=== PATIENT | male | born 1945 | race Caucasian/White ===

== ENCOUNTER 2018-08-11 09:42 | Inpatient (IN) | payer MEDICARE, SELFPAY ==
[2018-07-28 14:12] VITALS: BMI 23.1
[2018-08-11] VITALS (21 sets, daily range): BP systolic 87–177; BP diastolic 46–91; PULSE 60–93; RESP 10–20; TEMP 36.2–36.7; O2SAT 91–99; BMI 149.0
--- NOTE | 2018-08-11 | DI.RAD.S_ITS ---
PROCEDURE: XR LUMBAR SPINE 2-3V INDICATIONS: L4-5 TLIF FINDINGS: 2 limited intraoperative fluoroscopically stored images of the lower lumbar spine were obtained for intraoperative hardware localization purposes. These images are not meant for diagnostic purposes. Intraoperative findings related to a L4-5 discectomy infusion procedure are present. IMPRESSION: Intraoperative images obtained during the patient's lower lumbar discectomy and fusion procedure. Dictated by: Neville Mendoza M.D. on 08/11/2018 at 13:32 Approved by: Neville Mendoza M.D. on 08/11/2018 at 13:33
[2018-08-11] MEDS: LACTATED RINGERS 1,000 ML 42 ML IV ×2 (10:15→13:33)
--- NOTE | 2018-08-11 11:15 | PM.PREOP ---
Pre-operative Note Interval Note Pre-op Check: Yes History & Physical Reviewed by Physician, Yes Exam Performed and Yes History & Physical exam performed today by Physician Changes: No
[2018-08-11] MEDS: CEFAZOLIN 2 GM/100 ML FROZ.PIGGY IV (11:26)
--- NOTE | 2018-08-11 12:02 | SUR.OPER ---
Prone on spine table, head in foam head support, padded chest and pelvic supports, gel pad at knees, lower legs supported by pillows; nipples, genitalia and toes free of pressure, arms secured on foam padded arm boards at <90 degrees abduction. Tape over blanket at thigh secured to table.
[2018-08-11] MEDS: BUPIVACAINE 0.25% W/ EPI VIAL 30 ML INJ (12:15)
[2018-08-11] MEDS: BUPIVACAINE LIPOSOME 266 MG/20 ML VIAL INJ (12:16)
--- NOTE | 2018-08-11 14:00 | P.OP_ITS ---
Operative Date/Time/Diagnoses Date of procedure: 08/11/18 Time of procedure: 11:53 Pre-op diagnosis: 1. L4-5 hx of laminectomy with recurrent disc herniation and spinal stenosis 2. L3-4 spinal stenosis 3. L3-4, L4-5 spondylosis with radiculopathy Post-op diagnosis: same Procedure & Clinicians Procedure: 1. L4-5 Postero-lateral and posterior interbody fusion 2. L4-5 interbody cage placement. 3. L4-5 decompressive laminectomy with bilateral facetecomies 4. L4-5 Posterior non-segmental instrumentation 5. L3-4 right hemilamiectomy 6. [place] of bone marrow from iliac crest 7. Utilization of microsurgical technique and operating microscope Same procedure as scheduled: Yes Indications: Patient has been having chronic back pain and worsening lumbar radiculopathy. Patient failed multiple conservative management with worsening pain weakness and numbness in her lower extremity. Patient has been having difficulty performing activity of daily living. After discussing risks benefits of treatment options, patient elected proceed with surgery. Surgeon: Vinh Lauren Dress Finisher: Maria E Storey Click Yes if Unassisted: No Anesthesia Type: General Operative Notes Closure Type: primary Specimen(s): none sent Implants & Drains: Globus revolve screws, Rise Cages Estimated Blood Loss (mL): 50 Blood products transfused: none Procedure in detail: Patient was seen in the preoperative area. Risks and benefits of the surgery was discussed with the patient. Informed consent was obtained from the patient and placed in the chart. Surgical site was marked. Patient was taken to the operative room. General anesthesia was administered. Prophylactic antibiotic was given to the patient less than 30 min before the incision was made. Patient was placed into a prone position on the Sb table. Patient's back was then prepped and draped in the sterile fashion. Time- out was performed at this time. Using AP and lateral C-arm imaging the interval between L3-4 L4-5 was identified and marked on patient's back. A 2 inch incision 2 in from midline was made on the right side first. The fascia was incised in line with skin incision. Globus MARS retractors was placed inside the incision and docked onto the L4 lamina. Using microsurgical technique and operating microscope, a L4 laminectomy and L4-5 facetectomy was performed using a Kerrison rongeur. Patient had significant amount of epidural scarring. Patient also had significant amount of disc herniation in the epidural space. The scar tissue and the herniated disc were carefully removed using a Kerrison rongeur and pituitary. The disc space at L4-5 was identified. And a total diskectomy was performed at L4-5 level. The endplates were decorticated using a rasp and shaver. The total diskectomy and decortication was performed at L4-5 level in order to to accomplish a L4-5 fusion. The local bone from the laminectomy and facetectomy was saved for local bone grafting. After the total diskectomy and decortication was completed, Globus viacell bone graft material was combined with local bone that was harvested earlier. At this time, a separate skin is incision was made over the iliac crest. A Jamshidi needle was inserted into the iliac crest through a separate skin incision. 5 cc of bone marrow aspiration was obtained through the separate skin incision using a Jamshidi needle from the iliac crest. The bone marrow aspiration was combined with local bone and the via cell bone grafting material. The bone grafting material was placed into the L4-5 interbody space along with a expandable cage. The cage was expanded to its maximum height using the torque limiting screwdriver. At this time the MARS retractor was redirected over the L3 lamina. Using microsurgical technique and operating microscope, a L3-4 heminectomy was performed using the Kerrison rongeur. The ligamentum flavum was also resected at the side of the hemilaminectomy for further decompression of the epidural space. At this time a mirror image incision was made on the left side. The fascia was incised in line with the skin incision. Globus MARS retractor was inserted and docked onto the L4-5 posterolateral gutter. Using the power drill, posterior- lateral decortication was performed at L4-5 level until bleeding cortical bone was identified. The remaining bone grafting material was placed into the L4-5 posterior lateral gutter he order to accomplish posterolateral fusion at the L4- 5 level. Using the double C-arm technique, pedicle screws were placed into the L4 and L5 pedicles bilaterally. This was done by placing the Jamshidi needle into the pedicles, then placing the guidewires over the Jamshidi needle, and finally placing the cannulated screws over the guidewires bilaterally. After the pedicle screws were placed, 2 titanium rods was locked into the heads of the pedicle screws using locking caps and torque limiting screwdriver. After all the hardware was placed, and confirmed with AP and lateral C-arm imaging, the wound was then irrigated with sterile normal saline and packed with Ray-Bandar gauze for 3 min to accomplish hemostasis. After the gauze was removed the deep fascia was closed with #1 Vicryl suture. The subcutaneous layer was closed with 2-0 Vicryl. The skin was closed with skin kristie. Patient tolerated the procedure well. There were no complications. Complications: none Condition: stable Disposition: Acute Care Plan for aftercare: Admit to inpatient hospital
--- NOTE | 2018-08-11 14:14 | SUR.PHASEI ---
report recieved care assumed.
--- NOTE | 2018-08-11 14:26 | SUR.PHASEI ---
moving all extremeties equally, weak to flexion and extension. bilateral crab picker equal, weak.
[2018-08-11] MEDS: HYDROMORPHONE 2 MG INJ 0.5 MG IV (14:49)
--- NOTE | 2018-08-11 15:18 | SUR.PHASEI ---
Care to 1510 and then reassumed care at 1540.
[2018-08-11] MEDS: SODIUM CHLORIDE 0.9% 1,000 ML 100 ML IV (17:59)
[2018-08-11] MEDS: CEFAZOLIN 1 GM/50 ML FROZ.PIGGY IV (19:13)
[2018-08-11] MEDS: DOCUSATE 100 MG CAPSULE PO (19:14)
[2018-08-11] MEDS: SENNOSIDES 8.6 MG TABLET 17.2 MG PO (19:14)
[2018-08-11] MEDS: ACETAMINOPHEN 325 MG TABLET 650 MG PO (22:31)
[2018-08-11] MEDS: MAG HYDROX/ALUM/SIMETH 30 ML UDC PO (22:31)
[2018-08-12] VITALS: BP 129/70; PULSE 76; RESP 17; TEMP 36.5; O2SAT 96
[2018-08-12] MEDS: CEFAZOLIN 1 GM/50 ML FROZ.PIGGY IV (03:06)
[2018-08-12] MEDS: SODIUM CHLORIDE 0.9% 1,000 ML 100 ML IV (03:09)
[2018-08-12 03:11] VITALS: BP 132/73; PULSE 75; RESP 18; TEMP 36.6; O2SAT 95
--- NOTE | 2018-08-12 06:55 | PC.NURSE ---
08/12 0655 pt with minimal pain, requesting tylenol for pain control and states relief. Denies any deterioration of sensation to lower extremities, states sensation improved post surgery. VSS on RA, up with FWW and standby assist this AM. Verbalizes wishes and readiness to go home today.
--- NOTE | 2018-08-12 07:16 | PM.PNPO.1 ---
Subjective Date Patient Seen: 08/12/18 Interval history: Patient seen bedside s/p L3-4 right hemilaminectomy, L4-5 TLIF with posterior instrumentation with Dr. Lauren at on 08/11/2018. Patient is POD #1. Denies SOB, CP, N/V. Exam Vital Signs (past 8 hours): - 08/12/18 00:00 08/12/18 03:11 Temperature 97.7 F 97.9 F Pulse Rate 76 75 Respiratory Rate 17 18 Blood Pressure 129/70 132/73 Pulse Oximetry 96 95 Oxygen Delivery Method Room Air Oxygen Flow Rate 2.5 Assessment & Plan Post-op Postoperative Procedures Operation Date: 08/11/18 11:15 Actual Procedures Side Surgeon p L3-4 Right Hemilaminectomy, L4-5 TLIF w/Posterior Instru. Vinh Lauren MD 1. Patient is POD #1 above procedure. PT today, pain control. OOB as tolerated. Discharge pending PT clearance and pain control. Quality VTE Deep Vein Thrombosis/Pulmonary Embolism Present on Admission: No
--- NOTE | 2018-08-12 07:43 | PM.DS.1 ---
History of Present Illness Date Patient Seen: 08/12/18 Time Patient Seen: 07:31 Chief complaint: [id number] L3-4 L4-5 Narrative: Patient seen bedside s/p L3-4 right hemilaminectomy, L4-5 TLIF with posterior instrumentation with Dr. Lauren at on 08/11/2018. Patient is POD #1. Denies SOB, CP, N/V. Pain is well controlled with APAP. Would like to go home today. Discharge Providers Date of admission: 08/11/18 09:42 Primary care physician: Natalio Corrigan MD Consults: 08/11/18 16:30 Consult to Occupational Therapy Evaluate & Treat Comment: Physician Instructions: Evaluate and treat Consult to Physical Therapy Evaluate & Treat Comment: Physician Instructions: Evaluate and Treat Discharge provider: Indy Wells PA-C Discharge Date: 08/12/18 Summary Discharge Diagnosis: 1. Spondylolisthesis at level L3-L4 2. Spinal stenosis of lumbar spine at multiple levels 3. Right foot drop Hospital Course: Patient was admitted to the hospital s/p L3-4 right hemilaminectomy, L4-5 TLIF with posterior instrumentation with Dr. Lauren at on 08/11/2018. Patient tolerated the procedure well with no major complications. He was transferred to the acute care floor where he was seen by PT and recommended for discharge home. He was stable and ready for discharge on 08/12/18. Per discussion with patient, I only prescribed him 15 tablets of oxycodone. He stated that he did not want any more than that. Follow up in office in 2 weeks' time. Status at Discharge Cognitive/behavioral status at discharge: Alert & oriented x4 Functional status at discharge: uses cane/walker Overall status at discharge: patient is progressing back to baseline Time Spent with Patient Less than 30 minutes Exam Vital Signs (past 8 hours): - 08/12/18 00:00 08/12/18 03:11 Temperature 97.7 F 97.9 F Pulse Rate 76 75 Respiratory Rate 17 18 Blood Pressure 129/70 132/73 Pulse Oximetry 96 95 Oxygen Delivery Method Room Air Oxygen Flow Rate 2.5 Narrative Exam Narrative: WDWN NAD A&OX3. Dressing on lumbar spine CDI. ROM of BLE intact. Calves are soft and compressible. Discharge Plan Discharge Plan Patient Disposition: Home Discharge comment: Please change dressing to waterproof op site prior to discharge. Discharge Med Rec/Prescriptions Prescriptions: New acetaminophen 325 mg Tablet 650 mg PO Q6HR PRN (Reason: Pain, Mild (1-3)) Qty: 0 RF: 0 docusate sodium 100 mg Capsule 100 mg PO BID Qty: 0 RF: 0 hydroxyzine pamoate 25 mg Capsule 25 mg PO Q4HR PRN (Reason: Nausea And Vomiting) Qty: 50 RF: 1 oxycodone 10 mg Tablet 5 mg PO Q4H PRN (Reason: Pain, Severe (7-10)) Qty: 15 RF: 0 Continue enalapril maleate 20 mg Tablet 40 mg PO QAM RF: 0 tamsulosin 0.4 mg Capsule,Extended Release 24hr 0.4 mg PO QAM RF: 0 fenofibrate nanocrystallized 145 mg Tablet 145 mg PO QAM RF: 0 tolterodine 2 mg Tablet 2 mg PO QAM RF: 0 Discontinued aspirin [Ecotrin] 325 mg Tablet,Delayed Release (Dr/Ec) 1 tab PO QAM RF: 0 Follow up/Referrals: Vinh Lauren MD [Physician] - 08/22/18 1:00 pm (Follow up in the [place] office with Doretha Ruth PA-C ) Provider Discharge Instructions Diet: Diet as Tolerated Activity: WBAT, limit twisting/bending. No lifting over 5 lbs. Cold/Heat Therapy: Apply ice for 20 minutes at a time to operative site as needed at least hourly while awake. Skin/Wound/Dressing Care Report to your healthcare provider any signs of infection, such as:: chills, fever, night sweats, increased pain and unusual drainage Dressing: Keep dressing CDI until post-op appointment. May shower with dressing in place. Visit Report/Discharge Packet Instructions: DI for Transforaminal Lumbar Interbody Fusion Discharge Data Primary Care Provider: Natalio Corrigan Attending Provider: Vinh Lauren Admit Date/Time: 08/11/18 09:42 Quality VTE Deep Vein Thrombosis/Pulmonary Embolism Present on Admission: No
[2018-08-12 08:00] VITALS: BP 149/77; PULSE 73; RESP 18; TEMP 36.6; O2SAT 98
[2018-08-12 08:19] LABS: Hematocrit 39.3 % (41-53); Hemoglobin 13.3 g/dL (13.5-17.5)
--- NOTE | 2018-08-12 08:32 | PT.IIE ---
Addendum entered and electronically signed by Anais Powell, PT 08/12/18 10:46: I certify I directly supervised and guided this session. Nicole Powell DPT Original Note: Current Diagnoses Foot drop, right foot (08/11/18) Spondylolisthesis, lumbar region (08/11/18) Spinal stenosis, lumbar region without neurogenic claudication (08/11/18) Other specified postprocedural states (08/11/18) Surgery Performed Operation Date: 08/11/18 11:15 Actual Procedures p L3-4 Right Hemilaminectomy, L4-5 TLIF w/Posterior Instru. - Vinh Lauren MD Surgical History (This Medical Record has been edited. Action required.) History of bladder surgery (Acute) History of femoropopliteal bypass (Acute) History of left-sided carotid endarterectomy (Acute) History of lumbar surgery (Acute) Hx of appendectomy (Acute) Hx of tonsillectomy (Acute) Medical History (This Medical Record has been edited. Action required.) COPD (chronic obstructive pulmonary disease) (Acute) Cancer (Acute) Carotid artery stenosis (Acute) Chronic kidney disease (Acute) Easy bruisability (Acute) Enlarged prostate (Acute) Fragile skin (Acute) Gout (Acute) HTN (hypertension) (Acute) Hypercholesterolemia (Acute) Hypothyroid (Acute) Lumbar spinal stenosis (Acute) Numbness and tingling (Acute) Peripheral vascular disease (Acute) Psoriasis (Acute) Right foot drop (Acute) Vitamin D deficiency (Acute) Physical Therapy Inpatient Evaluation/Re-Eval M1 PT/OT-IP Prior Functional Status Start: 08/12/18 09:20 Freq: NEEDED Status: Active Protocol: Document 08/12/18 08:32 (Rec: 08/12/18 09:42 [id number]) Medical Review Prior Functional Status Medical History Reviewed Yes Communication No deficits noted. Mobility and Gait Prior to admit, pt was independent for all mobilities with the exception of occasional spc use for long distance ambulation; for example, a long shopping trip. Social History Household Members spouse Living Arrangements House Number of Floors (Floors) Two Floors Number of Stairs To Enter/Railing? 1 step to porch, then 1 step to enter. Home Environment Standard Height Toilet Tub/Shower Built-In Shower Seat Home Equipment Straight Cane Grab Bars In Shower Employment Status Retired Additional Social History Comment He will be staying with his daughter until recovered and is all set up to live entirely on the 1st floor. His will be avaliable for 24 assist upon d/c. Pt also owns a soft lumbar support brace. M2 PT-IP Current Condition Start: 08/12/18 09:20 Freq: NEEDED Status: Active Protocol: Document 08/12/18 08:32 (Rec: 08/12/18 09:42 [id number]) Physical Therapy Current Condition Current Condition Evaluation Date 08/12/18 Treatment Diagnosis Lumbar lami/fusion; difficulty walking Onset Date 08/11/2018 Precautions Lumbar Precautions Log Roll No Twisting Limit Bending Lifting Restriction of 10 lbs Gait Belt above Incisional Area Other Precautions Lifting restriction per surgical report 5#. M3 PT-IP Subjective Start: 08/12/18 09:20 Freq: NEEDED Status: Active Protocol: Document 08/12/18 08:32 (Rec: 08/12/18 09:42 [id number]) Subjective Physical Therapy Visit Type Type Initial Evaluation Visit Start Time 08:32 Visit Stop Time 09:04 Total Visit Minutes 32 Number of STRAP BUCKLER MACHINE Visits 0 Physical Therapy Visit Comments Patient Comments Pt agreeable to mobilize. Patient Goals Planning to stay in daughter's home at d/c with 24/7 assist from . Therapy Pain Assessment Pain When Pain Assessed During Mobility Pain Present Pain Present Pain Reported Location Back Scale Used Reports twinges of pain when pressure directly on spine. Otherwise 0/10 Pain Management Techniques Modification of Treatment Re-positioning Timing of Activity with Medications M4 PT-IP Mobility and Gait Start: 08/12/18 09:20 Freq: NEEDED Status: Active Protocol: Document 08/12/18 08:32 (Rec: 08/12/18 09:42 [id number]) PT-Bed Mobility Assessment Rolling Type of Rolling Roll to Right Level of Assist Standby Assistance Supine to Sit Supine to Sit Standby Assistance Scooting Scooting to Edge of Bed Standby Assistance PT-Transfer Assessment Sit to and From Stand Sit to and from Stand Standby Assistance Equipment Transfer Assistive Device None Gait Belt Straight Cane Front Wheeled Walker Orthotic/Prosthetic Devices or Brace: No Transfers Transfer Destination Chair Comments Mobility Comments Pt familiar with log roll and performs SBA with no cuing. Sit <> stand performed with fww and SBA; pt uses UE on bed surface and stands without support of walker for balance. Sit <> stand with spc is also SBA, UE use on chair. Gait Assessment Gait Gait Assistance Required: Standby Assistance Distance (Feet) 200 Able to Maintain Weight Bearing Status Yes During Gait Assistive Devices Assistive Device None Gait Belt Straight Cane Front Wheeled Walker Orthotic/Prosthetic Devices or Brace: No Gait Deviations General Gait Pattern Antalgic Flexed Trunk Factors Limiting Gait Function Factors Limiting Gait Function Decreased Activity Tolerance Decreased Strength Limited Range of Motion Pain Poor Balance Poor Safety Awareness Comments Gait Comments Pt ambulates in room with fww SBA 10 ft; Attempt 10 ft. with no AD is SBAand pt demonstrates antalgic gait and increase in forward flexed posture. Pt ambulates additional 180 ft in hallway to/from stairs with spc SBA with improved upright posture and decreased antalgic gait. He is able to partially correct posture when cued. R Midfoot strike is noted with all ambulation. Stair Climbing Assessment Evaluation Level of Assist On Stairs Standby Assistance Devices Stair Climbing Assistive Devices Straight Cane Technique/Endurance Stair Climbing Direction Ascend and Descend Stair Climbing Technique Step Over Step Number of Steps Climbed 3 Query Text: Stair Climbing Set # Repetitions (reps) 3 Comments Stair Climbing Comments Pt is SBA with spc cane on steps. PT-Balance Assessment Sitting Balance and Reactions Static Sitting Balance Ability Good Dynamic Sitting Balance Ability Good Standing Balance and Reactions Static Standing Balance Ability Good Dynamic Standing Balance Ability Fair Device Used spc, fww and none Comments Other Balance Tests/Deviations/Treatment pt demonstrates slight : unsteadiness when using no AD. Improved significantly with spc. M5 PT-IP Objective Assessments Start: 08/12/18 09:20 Freq: NEEDED Status: Active Protocol: Document 08/12/18 08:32 (Rec: 08/12/18 09:42 [id number]) Orientation Orientation/Cognition Level of Alertness Alert Orientation Name Age Birthday Month Date Year Day of Week Place Situation Language Function Ability No Deficits Noted Safety Awareness Decreased Safety Awareness Comments Pt demonstrates impulsivity with activities. He is asked to slow down repeatedly this session. Strength Lower Extremity Strength Assessment Within Functional Limits Comments Strength Comments Pt notes ability to dorsiflex R foot is improved greatly since surgery. Sensation Assessment Sensation Light Touch Impaired Comments Sensation Comments Decreased light touch sensation RLE. Intact pressure BLE. M6 PT-IP Treatment Start: 08/12/18 09:20 Freq: NEEDED Status: Active Protocol: Document 08/12/18 08:32 (Rec: 08/12/18 09:42 [id number]) Physical Therapy Treatment Education Education Provided Precautions Weight Bearing Status Post-Op Packet Safety Other Treatments Other Treatment Performed Discussed need for 24/7 SBA for safety and use of spc. Pt agreed. M7 PT-IP Assessment and Plan Start: 08/12/18 09:20 Freq: NEEDED Status: Active Protocol: Document 08/12/18 08:32 (Rec: 08/12/18 09:42 [id number]) PT Summary Assessment and Plan Potential Rehabilitation Potential Good Status of Condition at Evaluation Stable Summary Impairments Pain ROM Strength Balance Sensation Bed Mobility Transfers Gait Activity Tolerance Progress Towards Goals Progressing Toward Goals Assessment Summary Pt s/p lumbar lami/fusion with difficulty walking. He was able to ambulate a total of 200 ft SBA and demonstrates best quality of gait and posture when using spc. He also completed up/down 9 steps with spc and SBA. Recommend d/c to home (his daughter's home) with 24/7 assist. Goals Bed Mobility Goal Independent Transfer Goal Independent Cane Gait Goal Independent Cane Gait Distance 300 Days to Meet Goals 2 Treatment Plan Physical Therapy Treatment Plan Bed Mobility Training Transfer Training Gait Training Therapeutic Exercise Balance Retraining Post Op Education Discharge Planning Hot or Cold Pack Neuromuscular Re-ed Coordination Retraining Manual Therapy Other Recommendations and Next Treatment Progress ambulation and stair Focus climbing. Recommendations To Nursing Amount of Assist Needed Standby Assistance Discharge Recommendations PT Discharge Recommendations Home with 24/7 Assist
[2018-08-12] MEDS: DOCUSATE 100 MG CAPSULE PO (09:32)
[2018-08-12] MEDS: ACETAMINOPHEN 325 MG TABLET 650 MG PO (10:41)
--- NOTE | 2018-08-12 11:00 | OT.IP.EVAL ---
Current Diagnoses Foot drop, right foot (08/11/18) Spondylolisthesis, lumbar region (08/11/18) Spinal stenosis, lumbar region without neurogenic claudication (08/11/18) Other specified postprocedural states (08/11/18) Surgery Performed Operation Date: 08/11/18 11:15 Actual Procedures p L3-4 Right Hemilaminectomy, L4-5 TLIF w/Posterior Instru. - Vinh Lauren MD Past Medical History (This Medical Record has been edited. Action required.) COPD (chronic obstructive pulmonary disease) (Acute) Cancer (Acute) Carotid artery stenosis (Acute) Chronic kidney disease (Acute) Easy bruisability (Acute) Enlarged prostate (Acute) Fragile skin (Acute) Gout (Acute) HTN (hypertension) (Acute) Hypercholesterolemia (Acute) Hypothyroid (Acute) Lumbar spinal stenosis (Acute) Numbness and tingling (Acute) Peripheral vascular disease (Acute) Psoriasis (Acute) Right foot drop (Acute) Vitamin D deficiency (Acute) Surgical History (This Medical Record has been edited. Action required.) History of bladder surgery (Acute) History of femoropopliteal bypass (Acute) History of left-sided carotid endarterectomy (Acute) History of lumbar surgery (Acute) Hx of appendectomy (Acute) Hx of tonsillectomy (Acute) Occupational Therapy Inpatient Evaluation/Re-Eval M1 PT/OT-IP Prior Functional Status Start: 08/12/18 09:20 Freq: NEEDED Status: Active Protocol: Document 08/12/18 11:00 LANDON (Rec: 08/12/18 11:43 PJ [id number]) Medical Review Prior Functional Status Medical History Reviewed Yes Diet/Fluid Consistency Regular Communication No deficits noted. Mobility and Gait Prior to admit, pt was independent for all mobilities with the exception of occasional SPC use for long distance ambulation; for example, a long shopping trip. Activities of Daily Living and IADL's Pt independent with all self care, IADLS, driving but limited by back pain. Prior Functional Level (Other details) can provide 24 hr assist at d/c PRN. Social History Household Members spouse Living Arrangements House Number of Floors (Floors) Two Floors Number of Stairs To Enter/Railing? 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 Pt/ currently living with daughter in [place] while building home in [place]. M2 OT-IP Current Condition Start: 08/12/18 11:31 Freq: Status: Active Protocol: Document 08/12/18 11:00 PJM (Rec: 08/12/18 11:43 PJM [id number]) Occupational Therapy Current Condition Current Condition Evaluation Date 08/12/18 Treatment Diagnosis decreased self care s/p L3-4 lami and L4-5 PLIF Diagnosis Onset Date 08/11/18 Post Operative Precautions Lumbar Precautions Log Roll No Twisting Limit Bending Lifting Restriction of 10 lbs Gait Belt above Incisional Area Other Precautions Lifting restriction per surgical report 5#. M3 OT- IP Subjective and Pain Start: 08/12/18 11:31 Freq: Status: Active Protocol: Document 08/12/18 11:00 PJM (Rec: 08/12/18 11:43 PJM [id number]) OT- Subjective Occupational Therapy Visit Type Type Initial Evaluation Visit Start Time 10:38 Visit Stop Time 11:00 Total Visit Minutes 22 Occupational Therapy Visit Comments Patient/Caregiver Goals to be able to build deck on new house next summer; resume golfing OT Pain Assessment Pain When Pain Assessed At Rest Pain Present Pain Present Pain Reported Location Back Intensity 2 Scale Used Numeric (1 - 10) Description Aching Acute Management Techniques Distraction Re-positioning Timing of Activity with Medications M4 OT- IP ADL's Start: 08/12/18 11:31 Freq: Status: Active Protocol: Document 08/12/18 11:00 PJM (Rec: 08/12/18 11:43 PJM [id number]) OT [id number] General Evaluation Diet Level for Self-Feeding general Self-Feeding Ability Independent OT ADL-Grooming General Evaluation Grooming Ability Independent Comments OT Grooming Comments after education provided re: body mechanics at sink OT ADL-Oral Care General Eval Oral Care Ability Independent Areas of Assistance Brushing Teeth Devices Oral Care Devices Toothbrush Comments Oral Care Comments after education provided re: body mechanics at sink OT ADL-Dressing General Eval Upper Body Dressing Ability Independent Comments OT Dressing Comments provided education re: precautions and body mechanics OT ADL-Toileting General Evaluation Toileting Ability Independent Comments OT Toileting Comments provided education re: precautions and body mechanics for rigoberto care OT ADL-Bathing Bathing Type Bathing Type Shower Devices Bathing Equipment Long Handled Sponge or [place] Grab Bars Comments OT Bathing Comments provided education re: precautions and body mechanics M5 OT- IP IADL's Start: 08/12/18 11:31 Freq: Status: Active Protocol: Document 08/12/18 11:00 PJM (Rec: 08/12/18 11:43 PJ [id number]) OT-Instrumental Activities of Daily Living Deficits IADL Deficits Identified Deficits Home Safety Awareness Awareness of Need for Assistance at Home Good Awareness Ability to Problem Solve Emergency Able to Problem Solve Situations Medication Management Medication Management No Deficits Identified Money Management Money Management No Deficits Identified Meal Preparation Meal Preparation Caregiver Provides Assist Meal Preparation Comments can assist PRN Interactive Media Director Interactive Media Director Caregiver Provides Assist Interactive Media Director Comments can assist PRN Driving Driving Caregiver Provides Assist Driving Comments can assist PRN until pt able M6 OT- IP Functional Cognition Start: 08/12/18 11:31 Freq: Status: Active Protocol: Document 08/12/18 11:00 PJM (Rec: 08/12/18 11:43 PJ [id number]) Cognitive Factors Limiting Selfcare Function Cognitive Ability Level of Alertness Alert Patient Orientation Name Age Birthday Month Date Year Day of Week Place Situation Attention Span Ability Capable of Focused Attention Capable of Sustained Attention Ability to Follow Commands Able to Follow One Step Commands Memory Description No Deficits Noted Safety Awareness No Deficits Noted Executive Function Ability No Deficits Noted Cognitive Comments Cognitive Assessment Comments Cognition appears WNL; pt recalls and applies 3/3 precautions OT- Vision and Hearing OT- Hearing Assessment OT- Hearing Assessment WFL OT- Vision Assessment Visual Acuity WFL Vision Assessment Comments pt denies any recent vision changes M7 OT- IP Mobility and Balance Start: 08/12/18 11:31 Freq: Status: Active Protocol: Document 08/12/18 11:00 PJM (Rec: 08/12/18 11:43 PJ [id number]) OT-Transfer Assessment Technique Transfer Destination Car Comments Mobility Comments Pt up in chair this session; see P.T. notes. Provided education re: car transfer technique OT- Gait Assessment Comments Gait Ability Comments see P.T. notes OT- Balance Assessment Sitting Balance and Reactions Static Sitting Balance Ability Good Dynamic Sitting Balance Ability Good Standing Balance and Reactions Static Standing Balance Ability Good Dynamic Standing Balance Ability Good M8 OT- IP Objective Assessments Start: 08/12/18 11:31 Freq: Status: Active Protocol: Document 08/12/18 11:00 PJM (Rec: 08/12/18 11:43 PJM [id number]) OT Gross Range of Motion Upper Extremity Range of Motion Assessment Within Functional Limits OT Strength Upper Extremity Strength Assessment Within Functional Limits Hand Financial Investigator Strength Hand Dominance Right OT- Coordination Assessment Upper Extremity Finger to Nose Test Right UE Impaired Finger Tapping Test Right UE Impaired Comments Coordination Comments long standing R hand intention tremor noted OT-Muscle Tone Assessment Muscle Tone WNL Yes OT Sensation Assessment Comments Summary Comments BUE WNL Edema Edema Absent M9 OT- IP Assessment and Plan Start: 08/12/18 11:31 Freq: Status: Active Protocol: Document 08/12/18 11:00 PJM (Rec: 08/12/18 11:43 PJM [id number]) OT Summary Assessment and Plan Potential Rehabilitation Potential Good Analytic Complexity at Evaluation Low Summary OT Impairments Pain Progress Towards Goals Safe For Discharge Assessment Summary Low complexity OT assessment and all education provided re: lumbar spine precautions and body mechanics during self care/IADL tasks. Pt verbalizes and demonstrates understanding. Pt plans to d/c home today with 24 hr assist from . No further OT services needed Frequency of Treatment Frequency Of Treatment Discharge Treatment Plan Other Treatment Recommendations and Next No further OT services needed. Treatment Focus Discharge Recommendations OT Discharge Recommendations Home with Assistance Home Equipment Needs recommend long bath sponge
--- NOTE | 2018-08-12 11:30 | PC.NURSE ---
discharge pt states he took all belongings home with him including his cane and back brace. d/c instructions provided to pt. notified of f/u apt with MD. Also aware to contact MD with any additional questions or concerns. PIV removed prior to d.c. Pt left with to car.
== END 2018-08-12 11:30 | disposition home or self-care (01) | DRG 455 ==
PROVIDERS: Admitting Provider Orthopaedic Surgery Orthopaedic Surgery of the Spine; PCP Internal Medicine; Visit Provider Orthopaedic Surgery Orthopaedic Surgery of the Spine
PROC: 0SG00AJ Fusion of Lumbar Vertebral Joint with Interbody Fusion Device, Posterior Approach, Anterior Column, Open Approach (ICD-10-PCS; principal; 2018-08-11 11:15)
DX: M43.16 Spondylolisthesis, lumbar region (principal); M48.061 Spinal stenosis, lumbar region without neurogenic claudication; M21.371 Foot drop, right foot; I73.9 Peripheral vascular disease, unspecified; E03.9 Hypothyroidism, unspecified; F17.210 Nicotine dependence, cigarettes, uncomplicated; N18.9 Chronic kidney disease, unspecified; I12.9 Hypertensive chronic kidney disease with stage 1 through stage 4 chronic kidney disease, or unspecified chronic kidney disease
CPT/HCPCS: 36415; 72100; 76001; 85014; 85018; 97116; 97161; 97165; C1776; C9290; J0330; J0690; J1100; J1170; J2250; J2405; J2704; J3010

== ENCOUNTER 2018-12-18 12:21 | Day surgery (SDC) | payer MEDICARE, SELFPAY ==
[2018-08-11 17:20] VITALS: BMI 149.0
--- NOTE | 2018-12-18 | PATH_ITS ---
[facility] Accession Number: [id number] . 01 Material submitted: . PART A: CECAL POLYP PART B: RECTAL POLYP AT 15 . 02 Diagnosis: A. Cecum, Polyp, Biopsy: Tubular adenoma. . B. Rectum, Polyp at 15, Biopsy: Hyperplastic polyp. MRV/12/19/2018 . 02 Electronically signed: . Nasima Franco MD, Pathologist NPI- [id number] . 01 Gross description: . Received two formalin-filled containers, both labeled with the patient's name: . A. In a container labeled cecal polyp, are four less than 0.1 cm to 0.3 cm portions of tissue, entirely submitted in cassette A. B. In a container labeled rectal polyp at 15, are two 0.2-0.4 cm portions of tissue, entirely submitted in cassette B. ([id number]) /FRR . 02 Pathologist provided ICD-10: D12.0 . 02 CPT . 313468, [id number] Performed at: 01 [facility] [address] [facility], [place], [place] [id number] MD Cristian Rocha MD Phone: [phone] Performed at: 02 [facility] [address] [place], [place] [id number] MD Nasima Franco MD Phone: [phone]
[2018-12-18] MEDS: SODIUM CHLORIDE 0.9% 1,000 ML 200 ML IV (12:40)
[2018-12-18 12:42] VITALS: BP 168/99; PULSE 88; RESP 12; TEMP 36.6; O2SAT 95; BMI 23.6
--- NOTE | 2018-12-18 12:56 | PM.HP.1 ---
History of Present Illness Date Patient Seen: 12/18/18 Time Patient Seen: 12:56 Chief complaint: [id number] SCREENING COLONOSCOPY Narrative: 73-year-old male with personal history of colon polyps who presents now for colorectal screening. His last endoscopy was 3 years ago. He has had polyps removed at each endoscopy. On further history today he denies any recent symptoms. No nausea, vomiting, unintended weight loss, abdominal pain, change in bowel habits, diarrhea, constipation, melena, hematochezia, or bright red blood per rectum. Patient History Medical History Personal history of colonic polyps (Acute) COPD (chronic obstructive pulmonary disease) (Acute) Cancer (Acute) Carotid artery stenosis (Acute) Chronic kidney disease (Acute) Easy bruisability (Acute) Enlarged prostate (Acute) Fragile skin (Acute) Gout (Acute) HTN (hypertension) (Acute) Hypercholesterolemia (Acute) Hypothyroid (Acute) Lumbar spinal stenosis (Acute) Numbness and tingling (Acute) Peripheral vascular disease (Acute) Psoriasis (Acute) Right foot drop (Acute) Vitamin D deficiency (Acute) Surgical History History of colonoscopy (Acute) History of bladder surgery (Acute) History of femoropopliteal bypass (Acute) History of left-sided carotid endarterectomy (Acute) History of lumbar surgery (Acute) Hx of appendectomy (Acute) Hx of tonsillectomy (Acute) Social History household members: spouse Smoking Status: Current every day smoker alcohol intake: current Family & Social History Social History: household members spouse Tobacco & Substance use: Tobacco type cigarettes Smoking Status Current every day smoker alcohol intake current alcohol intake frequency a few times a week Substance Use Type does not use Meds Home Medications Medication Instructions Recorded Confirmed Type enalapril maleate 40 mg PO QAM 05/01/18 08/11/18 History fenofibrate nanocrystallized 145 mg PO QAM 05/01/18 08/11/18 History tamsulosin 0.4 mg PO QAM 05/01/18 08/11/18 History oxycodone 5 mg PO Q4-6H PRN #15 tab 08/12/18 Rx albuterol sulfate [ProAir HFA] 1 puff INHALATION Q4-6H PRN 12/18/18 12/18/18 History Allergies Allergy/AdvReac Type Severity Reaction Status Date / Time No Known Drug Allergies Allergy Verified 12/18/18 12:41 Review of Systems Review of Systems All systems reviewed & are unremarkable except as noted in HPI and below Exam Vital Signs (past 8 hours): - 12/18/18 12:42 Temperature 97.8 F Pulse Rate 88 Respiratory Rate 12 Blood Pressure 168/99 H Pulse Oximetry 95 Oxygen Delivery Method Room Air Narrative Exam Narrative: Well-nourished well-developed thin male in no acute distress. Alert oriented x3. is at the bedside for my entire visit Sclera nonicteric He has coarse rhonchi consistent with his smoking habit. No wheezes Regular rate and rhythm Abdomen soft, nondistended, nontender Extremities show no clubbing, cyanosis, or edema. Dorsal pedis pulses are palpable bilaterally. Right greater than left. Objective Labs Labs: No recent laboratory or radiographic studies for review Assessment & Plan Assessment & Plan narrative: 73-year-old male with personal history of colon polyps. He requires endoscopic surveillance for such. Colonoscopy is currently recommended. Technical details of the procedure were explained. Risks, benefits, alternatives were discussed. Risks including but not limited to sedation, aspiration, bleeding, pain, missed lesion, incomplete examination, need for further radiographic studies, colonic perforation, need for major abdominal surgery, and all attendant risks of major surgery were discussed in detail. All questions were answered to his satisfaction, and he voiced understanding. Consent was placed on the chart. We will proceed as above.
--- NOTE | 2018-12-18 13:00 | PM.PREOP ---
Pre-operative Note Interval Note History & Physical reviewed/Exam performed by Physician: Yes Changes to H&P: No H&P completed within 30 days and has changed as indicated here:: Patient seen and examined today. History and physical examination placed on the chart. Obviously, there have been no changes in the last 15 min. Proceed with colonoscopy today as planned. ASA Class (for procedural sedation): II
[2018-12-18] MEDS: MIDAZOLAM 5 MG/5 ML VIAL IV (13:17)
[2018-12-18] MEDS: fentaNYL 250 MCG/5 ML INJ IV (13:18)
--- NOTE | 2018-12-18 13:43 | P.OP.ENDO_ITS ---
Operative Date/Time/Diagnoses Date of procedure: 12/18/18 Time of procedure: 13:41 Pre-op diagnosis: Personal history colon polyps Post-op diagnosis: other (Diverticulosis and colon polyps) Procedure & Clinicians Study performed: 1. Sedation per surgeon 2. Colonoscopy with hot snare polypectomy and cold forceps polypectomy Same procedure as scheduled: Yes Indications: 73-year-old male with personal history of colon polyps. His last endoscopy was 3 years ago. He requires surveillance for colorectal neoplasia. Colonoscopy is currently recommended. Surgeon: Natalio Lora Procedure Notes SCOAP/Timeout: Yes Procedure in detail: After obtaining informed consent, the patient was brought to the GI suite and placed in the left lateral decubitus position on the examination table. After placement of appropriate monitors, the patient was given incremental doses of Versed and Fentanyl until an appropriate level of sedation was achieved. A time out was held per SCOAP protocol. A digital rectal examination was performed and did not reveal any masses or obstructing lesions. The colonoscope was gently passed into the patient's anus and the entire colon navigated to the level of the cecum with minimal difficulty . Once in the cecum, the scope was withdrawn being sure to go before and beyond all mucosal folds and prominences and get an excellent examination. The findings are noted above. At the level of the rectal vault, the scope was retroflexed and the internal anal canal was examined. The scope was straightened and air aspirated from the colon. The instrument was removed from the patient's body and the procedure was concluded. The patient was allowed to awaken from sedation without difficulty and taken to the post-anesthesia care unit in good condition. Scope withdrawal time: 20:54 min Sedation minutes: 32 Findings: diverticulosis and polyp Specimen(s): other (1. Cecal polyp 2. Rectal polyp at 15 cm) Complications: none Recommendations: Colonscopy in 3 years, High fiber diet and Will call with biopsy results Plan for aftercare: 1. Discharge home Follow up: as needed Disposition: PACU
[2018-12-18 13:44] VITALS: BP 133/71; PULSE 68; RESP 12; TEMP 36.4; O2SAT 97
[2018-12-18 13:49] VITALS: BP 137/78; PULSE 73; RESP 13; O2SAT 95
[2018-12-18 13:54] VITALS: BP 141/74; PULSE 78; RESP 17; O2SAT 97
[2018-12-18 13:59] VITALS: BP 151/88; PULSE 73; RESP 14; TEMP 36.3; O2SAT 99
[2018-12-18 14:04] VITALS: BP 164/85; PULSE 72; RESP 16; TEMP 36.3; O2SAT 96
== END 2018-12-18 14:18 | disposition home or self-care (01) ==
PROVIDERS: PCP Internal Medicine; Visit Provider Surgery
PROC: 0DJD8ZZ Inspection of Lower Intestinal Tract, Via Natural or Artificial Opening Endoscopic (ICD-10-PCS; CPT 45378; principal; 2018-12-18 13:30)
DX: Z86.010 Personal history of colon polyps (principal); K57.30 Diverticulosis of large intestine without perforation or abscess without bleeding; D12.0 Benign neoplasm of cecum; D12.8 Benign neoplasm of rectum; J44.9 Chronic obstructive pulmonary disease, unspecified; N18.9 Chronic kidney disease, unspecified; N40.0 Benign prostatic hyperplasia without lower urinary tract symptoms; I10 Essential (primary) hypertension; E78.00 Pure hypercholesterolemia, unspecified; E03.9 Hypothyroidism, unspecified; I73.9 Peripheral vascular disease, unspecified; E55.9 Vitamin D deficiency, unspecified; F17.210 Nicotine dependence, cigarettes, uncomplicated
CPT/HCPCS: 45380; 88305; J2250; J3010

== ENCOUNTER → 2021-12-10 10:40 | Outpatient (CLI) | payer MEDICARE, SELFPAY ==
[2018-08-11 17:20] VITALS: BMI 149.0
--- NOTE | 2021-12-10 | DI.MRI.S_ITS ---
PROCEDURE: MR LUMBAR SPINE WO CON INDICATIONS: Spinal stenosis, lumbar region TECHNIQUE: Noncontrast sagittal T1 spin echo and T2 fast echo, sagittal STIR, axial T1 and T2 fast spin echo through the lumbar spine. In cases with scoliosis, additional coronal T2 fast spin echo may be performed. COMPARISON: None. FINDINGS: Image quality: Excellent. Alignment and Curvature: Convex right thoracolumbar scoliosis noted. Bone Marrow: Marrow is of normal overall signal. No acute vertebral body compression fractures. L4 and L5 discectomy with interbody fusion and posterior maggi and screw instrumentation noted. L4 decompressive laminectomy present. Spinal Cord: Conus medullaris terminates at the L1 level. Visualized cord demonstrates normal signal and size. Paraspinous Soft Tissues: Bilateral renal cysts present. T12-L1: Disc space narrowing and circumferential disc bulge results in mild central stenosis no foraminal stenosis. L1-L2: Normal appearance. L2-L3: Disc space narrowing with circumferential disc bulge and hypertrophic facet joints results in mild central stenosis. No foraminal stenosis L3-L4: Space narrowing with circumferential disc bulge and ligamentum flavum laxity combines with hypertrophic facet joints results in moderate central stenosis. There is severe left and moderate right foraminal stenosis. L4-L5: Interbody fusion and L4 decompressive laminectomy noted. No central stenosis present. There is moderate bilateral foraminal stenosis. L5-S1: Disc space narrowing with circumferential disc bulge and hypertrophic facet joints present appear possible 5 mm right synovial cyst versus perineural cyst noted in the right lateral recess. No central stenosis. Moderate bilateral foraminal stenosis noted. IMPRESSION: 1. Multilevel degenerative disc disease and arthropathy results in varying degrees of central and foraminal stenosis including moderate central stenosis at L3-4. 2. Possible right L5-S1 synovial cyst versus perineural cyst in the right lateral recess. 3. L4-5 interbody fusion with posterolateral maggi and screw instrumentation and L4 decompressive laminectomy Approved by: Patrick Sage M.D. on 12/11/2021 at 12:50
== END ==
PROVIDERS: PCP Internal Medicine; Referring Provider Orthopaedic Surgery Orthopaedic Surgery of the Spine; Visit Provider Orthopaedic Surgery Orthopaedic Surgery of the Spine
DX: M48.061 Spinal stenosis, lumbar region without neurogenic claudication (principal); M48.07 Spinal stenosis, lumbosacral region; M47.816 Spondylosis without myelopathy or radiculopathy, lumbar region; M47.817 Spondylosis without myelopathy or radiculopathy, lumbosacral region; M51.36 Other intervertebral disc degeneration, lumbar region; M51.37 Other intervertebral disc degeneration, lumbosacral region; Z98.1 Arthrodesis status
CPT/HCPCS: 72148

== ENCOUNTER → 2022-02-21 11:51 | Outpatient (CLI) | payer MEDICARE, SELFPAY ==
[2018-08-11 17:20] VITALS: BMI 149.0
--- NOTE | 2022-02-21 | DI.RAD.S_ITS ---
PROCEDURE: XR CHEST 2V INDICATIONS: COUGH TECHNIQUE: 2 views of the chest were acquired. COMPARISON: None. FINDINGS: Surgical changes and devices: None. Lungs and pleura: Lungs are clear. No pleural effusions or pneumothorax. Mediastinum: Mediastinal contours are normal. Heart size is normal. Bones and chest wall: No suspicious bony abnormalities. Soft tissues appear unremarkable. IMPRESSION: No source for cough identified radiographically. Dictated by: Juan M Zuniga RRA Interpreted: Kapil Krishna MD on 02/21/2022 at 13:19 Transcribed by: TRISHA on 02/21/2022 at 13:20 Approved by: Kapil Krishna M.D. on 02/21/2022 at 15:15
== END ==
PROVIDERS: PCP Student in an Organized Health Care Education/Training Program; Referring Provider Student in an Organized Health Care Education/Training Program; Visit Provider Student in an Organized Health Care Education/Training Program
DX: R05.9 Cough, unspecified (principal)
CPT/HCPCS: 71046

== ENCOUNTER → 2022-03-30 07:43 | Outpatient (CLI) | payer MEDICARE, SELFPAY ==
[2018-08-11 17:20] VITALS: BMI 149.0
--- NOTE | 2022-03-30 | DI.ECHO.S_ITS ---
[facility]---------[facility] +---------+ : : [address] : : : : [id number] : : : : Phone: [phone] Echocardiogram Report + + :Name: CRICKET MACIEL Study Date: 03/30/2022 Height: 71 in : :[facility] ReadingLocation: Weight: 165 lb : : Gender: Male BSA: 1.9 m2 : :: 1945 Age: 76 yrs BP: 176/92 mmHg: :Reason For Study: Murmur : :Ordering Physician: KAMILLE, : :SHARRON Performed By: Nando Weaver : :Referring: SHARRON SIMENTAL : + + Interpretation Summary There are no focal wall motion abnormalities. The ejection fraction is estimated to be 60-65%. The right ventricle is normal in size and function. The right ventricular systolic pressure is estimated to be at least 33 mmHg based on an estimated right atrial pressure of 8 mm Hg. There is mild aortic regurgitation. No significant change from prior study in 2018. Procedure: A two-dimensional transthoracic echocardiogram with color flow and Doppler was performed. The study quality was technically adequate. Comparison is made with the echocardiogram of 02/04/2018. Left Ventricle: The left ventricle is normal in size and wall thickness. Left ventricular systolic function is normal. The ejection fraction is estimated to be 60-65%. There are no focal wall motion abnormalities. Diastolic parameters suggest probable normal left ventricular diastolic function and normal filling pressures. Right Ventricle: The right ventricle is normal in size and function. Atria: Both atria are normal in size. The interatrial septum grossly appears intact with no obvious evidence for an atrial septal defect. Mitral Valve: There is mild mitral annular calcification. There is trace mitral regurgitation. Aortic Valve: There is mild aortic valve sclerosis. There is no hemodynamically significant valvular aortic stenosis. There is mild aortic regurgitation. Tricuspid Valve: The tricuspid valve is normal in structure and function. There is mild tricuspid regurgitation. The right ventricular systolic pressure is estimated to be at least 33 mmHg based on an estimated right atrial pressure of 8 mm Hg. Pulmonic Valve: The pulmonic valve is not well seen, but is grossly normal. There is no pulmonic valvular regurgitation. Great Vessels: The aortic root is normal size. The ascending aorta could not be visualized. The IVC is dilated (diameter is greater than 2.1 cm) yet it collapses greater than 50% with a sniff. This suggests a right atrial pressure of 8 mm Hg. Pericardium/ Pleura There is no pericardial effusion. There is no pleural effusion. MMode/2D Measurements & Calculations LVIDd: 5.4 cm LVOT diam: 2.2 cm LVIDs: 3.7 cm Ao root diam: 3.5 cm FS: 31.6 % IVSd: 1.1 cm LVPWd: 0.80 cm LV banerjee. diameter/BSA (cm/m^2): 2.8 LV sys. diameter/BSA (cm/m^2): 1.9 LA A2 area: 21.1 cm2 RA long axis: 4.3 cm LA A4 area: 16.8 cm2 RA area: 11.2 cm2 LA length (vol): 4.8 cm RA vol: 24.8 ml LA vol: 62.4 ml RA : 12.7 ml/m2 LA vol index: 32.1 ml/m2 IVC diam: 2.8 cm TAPSE: 2.8 cm Doppler Measurements & Calculations Ao V2 max: 154.9 cm/sec LVOT Max Ulices: 103.0 cm/sec Ao V2 mean: 100.1 cm/sec LV V1 max P.2 mmHg Ao max P.6 mmHg LV V1 VTI: 25.0 cm Ao mean P.6 mmHg FRANCISCO(I,D): 2.6 cm2 Ao V2 VTI: 35.4 cm FRANCISCO(V,D): 2.4 cm2 sev ratio: 0.71 FRANCISCO indexed to BSA (cm^2/m^2): 1.3 MV E max ulices: 96.0 cm/sec TR max ulices: 249.8 cm/sec MV A max ulices: 98.3 cm/sec TR max P.0 mmHg MV E/A: 0.98 Med Peak E' Ulices: 7.2 cm/sec E/E' med: 13.3 Lat Peak E' Ulices: 7.3 cm/sec E/E' lat: 13.2 E/e' average: 13.3 MV dec time: 0.25 sec SV(LVOT): 92.1 ml Reading Physician:MIKIE
== END ==
PROVIDERS: PCP Student in an Organized Health Care Education/Training Program; Referring Provider Student in an Organized Health Care Education/Training Program; Visit Provider Student in an Organized Health Care Education/Training Program
DX: I08.2 Rheumatic disorders of both aortic and tricuspid valves (principal); R01.1 Cardiac murmur, unspecified
CPT/HCPCS: 93306

== ENCOUNTER → 2022-06-04 11:33 | Outpatient (CLI) | payer MEDICARE, SELFPAY ==
[2018-08-11 17:20] VITALS: BMI 149.0
--- NOTE | 2022-06-04 11:37 | DI.CT.S_ITS ---
PROCEDURE: CT LUMBAR SPINE WO CON INDICATIONS: Spinal stenosis, lumbar region TECHNIQUE: Noncontrast 3 mm thick sections acquired from the T12 level to the sacrum. Sagittal and coronal reformats were constructed. For radiation dose reduction, the following was used: automated exposure control. COMPARISON: [facility], MR, MR LUMBAR SPINE WO CON, 12/10/2021, 11:03. FINDINGS: Image quality: Excellent. Bones: There is posterior fusion at L4-5 with intervertebral spacer/prosthetic disc. Posterior laminectomy changes are present at this level. Hardware is intact without evidence of hardware fracture. The right pedicular screw at L4 courses along the superior most aspect of the L4 endplate. No visualized osseous fractures or dislocations. Multilevel bridging anterior osteophytes are present most notable at L4-5 as well as L1-2. Multilevel disc bulges are present throughout the lumbar spine. Significant reactive endplate changes with sclerosis are present at L3-4. Mild spinal stenosis is present at L2-3, moderate L3-4, unchanged. Severe left and moderate right foraminal narrowing is present at L3-4, moderate bilateral L4-5 as well as L5-S1. Multilevel facet and ligamentum flavum hypertrophy are present. Soft tissues: No retroperitoneal masses or hematomas. Visualized aorta is normal in caliber. IMPRESSION: Multilevel degenerative changes. Multilevel spinal stenosis appearing unchanged compared to prior exam. L4-5 fusion as above. Multilevel foraminal narrowing most severe at L4-5, unchanged. Dictated by: Rosario Cortez M.D. on 06/04/2022 at 16:29 Approved by: Rosario Cortez M.D. on 06/04/2022 at 16:32
== END ==
PROVIDERS: PCP Student in an Organized Health Care Education/Training Program; Referring Provider Orthopaedic Surgery Orthopaedic Surgery of the Spine; Visit Provider Orthopaedic Surgery Orthopaedic Surgery of the Spine
DX: M48.061 Spinal stenosis, lumbar region without neurogenic claudication (principal); M48.07 Spinal stenosis, lumbosacral region; M47.816 Spondylosis without myelopathy or radiculopathy, lumbar region; Z98.1 Arthrodesis status
CPT/HCPCS: 72131

== ENCOUNTER → 2022-06-28 12:04 | Outpatient (CLI) | payer MEDICARE, SELFPAY ==
[2018-08-11 17:20] VITALS: BMI 149.0
--- NOTE | 2022-06-28 12:07 | DI.US.S_ITS ---
PROCEDURE: US ABDOMEN LIMITED INDICATIONS: MASS OF RIGHT INGUINAL AREA TECHNIQUE: Real-time focused scanning was performed of the abdomen, with image documentation. Color Doppler was also utilized. COMPARISON: [facility], CT, CT LUMBAR SPINE WO CON, 06/04/2022, 11:43. [facility] [place], CR, XR PELVIS WITH LATERAL HIP RIGHT, 04/19/2022, 15:09. FINDINGS: Scanning is performed at the area of clinical concern. At this site, there is a fat containing lesion without abnormal vascularity that measures 6.3 x 1.5 x 3.6 cm. There is a hernia orifice seen that measures 1.5 cm. IMPRESSION: Fat containing hernia at the area of clinical concern. Surgical consultation is recommended. If clinically appropriate, a dedicated CT study with at least IV contrast may be helpful for further evaluation. Dictated by: Henrik Ponce M.D. on 06/28/2022 at 11:46 Approved by: Henrik Ponce M.D. on 06/28/2022 at 11:47
== END ==
PROVIDERS: PCP Student in an Organized Health Care Education/Training Program; Referring Provider Student in an Organized Health Care Education/Training Program; Visit Provider Student in an Organized Health Care Education/Training Program
DX: K40.90 Unilateral inguinal hernia, without obstruction or gangrene, not specified as recurrent (principal)
CPT/HCPCS: 76705

== ENCOUNTER → 2022-07-05 11:29 | Outpatient (CLI) | payer MEDICARE, SELFPAY ==
[2018-08-11 17:20] VITALS: BMI 149.0
[2022-07-05 12:01] LABS: Add Manual Diff / Slide Review NO; Basophils Absolute Auto 0 /uL (0-100); Basophils Percent Auto 0.9 % (0-2); Eosinophils Absolute Auto 100 /uL (0-450); Eosinophils Percent Auto 2.1 % (2-4); Hemoglobin 13.9 g/dL (13.5-17.5); Lymphocytes Absolute Auto 900 /uL (1100-4500); Lymphocytes Percent Auto 18.6 % (25-40); Mean Corpuscular HGB Conc 33.8 % (30-36); Mean Corpuscular Hemoglobin 30.9 PG (26-34); Mean Corpuscular Volume 91.6 fL (80-100); Monocytes Absolute Auto 400 /uL (0-900); Monocytes Percent Auto 8.3 % (3-14); Neutrophils Absolute Auto 3400 /uL (1500-7000); Neutrophils Percent Auto 70.1 % (50-75); Platelet Count 221 X10^3/uL (150-400); Red Blood Cell Count 4.48 X10^6/uL (4.5-5.9); Red Cell Distribution Width 15.9 % (11.6-14.8); White Blood Cell Count 4.8 X10^3/uL (4.5-11.0)
[2022-07-05 12:30] LABS: Alanine Aminotransferase 19 IU/L (<50); Albumin 3.6 g/dL (3.5-5.0); Albumin Globulin Ratio 1.3 (1.0-2.8); Alkaline Phosphatase 47 U/L (38-126); Aspartate Aminotransferase 27 IU/L (17-59); BUN Creatinine Ratio 22.6 (6-22); Bilirubin Total 0.5 mg/dL (0.2-1.3); Blood Urea Nitrogen 26 mg/dL (9-20); Calcium 9.4 mg/dL (8.4-10.2); Carbon Dioxide 27 mmol/L (22-32); Chloride 105 mmol/L (98-107); Estimated Glomerular Filt Rate > 60 mL/min (>60); Globulin 2.7 g/dL (1.7-4.1); Glucose 107 mg/dL (80-110); HEMOLYSIS < 15 (0-50); Potassium 3.7 mmol/L (3.4-5.1); Sodium 141 mmol/L (137-145); Total Protein 6.3 g/dL (6.3-8.2)
== END ==
PROVIDERS: PCP Student in an Organized Health Care Education/Training Program; Referring Provider Surgery; Visit Provider Surgery
DX: K40.90 Unilateral inguinal hernia, without obstruction or gangrene, not specified as recurrent (principal)
CPT/HCPCS: 36415; 80053; 85025

== ENCOUNTER → 2022-07-19 11:44 | Outpatient (CLI) | payer MEDICARE, SELFPAY ==
[2018-08-11 17:20] VITALS: BMI 149.0
--- NOTE | 2022-07-19 11:45 | DI.CT.S_ITS ---
PROCEDURE: CT ABDOMEN PELVIS W CON INDICATIONS: Right inguinal hernia and history of vascular surgery TECHNIQUE: After the administration of intravenous contrast, axial sections were acquired from the lung bases to the pubic symphysis. Coronal and sagittal reformats were performed. For radiation dose reduction, the following was used: automated exposure control, adjustment of mA and/or kV according to patient size. COMPARISON:None. FINDINGS: Image quality: Slightly motion degraded Lower chest: Emphysematous changes. Scattered scarring. Nonspecific distal esophageal wall thickening. Solid organs: Perfusion anomaly versus hemangioma, versus hypervascular mass measuring 10 mm in the periphery of segment 8 in the liver. This is indeterminate on single phase Gallbladder is unremarkable. No biliary ductal dilation. Pancreas is unremarkable. No splenomegaly. Suspected adenomatous thickening of both adrenal glands, without discrete nodule. Bosniak 1 and 2 renal lesions are present, for which no dedicated followup is necessary per 2019 proposed guidelines. However, there is a mass arising from the left interpolar region measuring 27 x 21 mm. The left renal vein appears patent. No collecting system invasion. No hydronephrosis. Left greater right hyperemia of the ureters. There is also an indeterminate lesion in the left upper renal pole measuring 1.1 cm. Vessels and lymph nodes: There are atherosclerotic calcifications. No abdominal aortic aneurysm. Prominent, non-specific lymph nodes are present that are not enlarged by size criteria. Bowel and peritoneum: Nonspecific distal esophageal wall thickening. No bowel obstruction. No pathologic ascites. Moderate colorectal stool burden. There are colonic diverticula. Body wall: Right groin postsurgical changes. There is a small fat containing right inguinal hernia. Possible tiny fat containing left inguinal hernia. On this non provocative study, the right inguinal hernia neck is between 1-2 cm. Pelvis: Bladder is distended Bones: No acute or suspicious osseous finding. IMPRESSION: There is a fat containing right inguinal hernia non this non provocative study with neck measuring 1-2 cm. There are postsurgical changes in the right groin. Incidental left renal mass in the interpolar region and indeterminate left upper pole intermediate density lesion. The former is concerning for renal cell carcinoma, the latter is indeterminate. There is also an indeterminate hypervascular region in the periphery of hepatic segment 8. Consider MRI of the abdomen for further characterize these findings. Hyperemic appearance of the left distal ureter, differential includes infection/inflammation versus mucosal early malignancy. Consider correlation with urinalysis. Other incidental findings above. Attention on follow-up imaging. Dictated by: Guy Tompkins M.D. on 07/19/2022 at 15:54 Approved by: Guy Tompkins M.D. on 07/19/2022 at 16:05
== END ==
PROVIDERS: PCP Student in an Organized Health Care Education/Training Program; Referring Provider Surgery; Visit Provider Surgery
DX: K40.90 Unilateral inguinal hernia, without obstruction or gangrene, not specified as recurrent (principal); N28.89 Other specified disorders of kidney and ureter
CPT/HCPCS: 74177; Q9967

== ENCOUNTER → 2022-07-23 11:40 | Outpatient (CLI) | payer MEDICARE, SELFPAY ==
[2018-08-11 17:20] VITALS: BMI 149.0
[2022-07-23 12:46] LABS: COVID19 -Nasal RAPID Negative (Negative)
== END ==
PROVIDERS: PCP Student in an Organized Health Care Education/Training Program; Referring Provider Orthopaedic Surgery Orthopaedic Surgery of the Spine; Visit Provider Orthopaedic Surgery Orthopaedic Surgery of the Spine
DX: Z20.822 Contact with and (suspected) exposure to COVID-19 (principal)
CPT/HCPCS: 87635; C9803

== ENCOUNTER 2022-07-25 07:29 | Inpatient (IN) | payer MEDICARE, SELFPAY ==
[2018-08-11 17:20] VITALS: BMI 149.0
[2022-07-16 07:43] VITALS: BMI 22.9
[2022-07-25] VITALS (17 sets, daily range): BP systolic 103–190; BP diastolic 50–88; PULSE 68–79; RESP 10–19; TEMP 35.8–36.6; O2SAT 89–100; BMI 22.2
--- NOTE | 2022-07-25 | DI.RAD.S_ITS ---
PROCEDURE: XR LUMBAR SPINE 2-3V INDICATIONS: TLIF TECHNIQUE: 3 fluoroscopic images from lower lumbar spinal fusion. COMPARISON: [facility], , XR LUMBAR SPINE 2-3V, 08/11/2018, 12:55. FINDINGS: Three fluoroscopic images from lower lumbar spinal fusion are present demonstrating rods, pedicle screws, and interbody spacers at 3 contiguous levels. IMPRESSION: Intraprocedural fluoroscopy was provided for guidance and anatomical localization. Please see the procedure report for further details. Dictated by: Sorin Tran M.D. on 07/25/2022 at 20:38 Approved by: Sorin Tran M.D. on 07/25/2022 at 20:44
--- NOTE | 2022-07-25 08:40 | PM.PREOP ---
Pre-operative Note COVID-19 COVID-19 status: Negative Result date/Date tested (Pos, Neg/Pending): 07/24/22 Criteria for continued procedure: Expected advancement of disease process, Possibility delay results in more complex future surgery or treatment, Increased loss of function, Continuing or worsening of significant or severe pain, Deterioration of the patient's condition or overall health and Delay expected to result in less-positive ultimate med/surg outcome Interval Note History & Physical reviewed/Exam performed by Physician: Yes Changes to H&P: No
[2022-07-25] MEDS: LACTATED RINGERS 1,000 ML 42 ML IV (08:42)
[2022-07-25] MEDS: BUPIVACAINE 0.25% (PF) 60 ML, EPINEPHrine 0.3 MG INJ (09:00)
[2022-07-25] MEDS: CEFAZOLIN 2 GM/100 ML PREMIX 100 ML IV ×3 (09:05→20:33)
--- NOTE | 2022-07-25 09:39 | SUR.OPER ---
Prone on spine table, head in foam head support, padded chest and pelvic supports, gel pad at knees, lower legs supported by pillows; nipples, genitalia and toes free of pressure, arms secured on foam padded arm boards at <90 degrees abduction. Gel roll placed between heels. Tape over blanket at thigh secured to table.
[2022-07-25] MEDS: BUPIVACAINE LIPOSOME 266 MG/20 ML VIAL INJ (09:51)
--- NOTE | 2022-07-25 13:37 | P.OP_ITS ---
Operative Date/Time/Diagnoses Date of procedure: 07/25/22 Time of procedure: 08:45 Pre-op diagnosis: 1. L3-4, L5-S1 spinal stenosis with radiculopathy and neurogenic claudication 2. History of L4-5 fusion Post-op diagnosis: same Procedure & Clinicians Procedure: 1. L3-4, L5-S1 posterolateral and posterior interbody fusion 2. L3-4, L5-S1 posterior interbody cage placement 3. L4-5 posterior non-segmental instrumentation removal 4. L4-5 revision laminectomy with exploration of fusion 5. L3-4, L4-5, L5-S1 posterior segmental instrumentation with pedicle screw placement 6. L4-5 posterolatearl fusion 7. [place] of bone marrow from iliac crest through a separate incision 8. Utilization of microsurgical technique and operating microscope 9. Utilization of robotic assisted navigation Same procedure as scheduled: Yes Indications: Patient has been having chronic back pain and worsening lumbar radiculopathy and symptoms of neurogenic claudication. Patient had prior L4-5 fusion surgery and has been doing well until recently. Patient was found to have significantly worsened adjacent levels with significant spinal stenosis degenerative disc spondylosis. Patient failed multiple conservative management with worsening pain weakness and numbness in his lower extremity. Patient has been having difficulty performing activity of daily living. After discussing risks benefits of treatment options, patient elected proceed with surgery. Surgeon: Vinh Lauren Planning Division Superintendent: Jessica Valera Click Yes if Unassisted: No Anesthesia Type: General Operative Notes Closure Type: primary Specimen(s): none sent Prosthetic devices, grafts, tissues, transplants, or devices: Globus CREO MIS screws, RIse cages Applied: catheter Estimated Blood Loss (mL): 100 Blood products transfused: none Procedure in detail: Patient was seen in the preoperative area. Risks and benefits of the surgery was discussed with the patient. Informed consent was obtained from the patient and placed in the chart. Surgical site was marked. Patient was taken to the operative room. General anesthesia was administered. Prophylactic antibiotic was given to the patient less than 30 min before the incision was made. Patient was placed into a prone position on the Sb table. Patient's back was then prepped and draped in the sterile fashion. Time-out was performed at this time. After patient was prepped and draped, patient's PSIS was palpated and marked bilaterally. Small 1 cm incision was made over the PSIS for placement of the reference probes. Two trocar was placed into the PSIS 1 on each side. The reference probe was attached to the trocar of the reference apparatus. At this time the C-arm imaging was used to confirm AP and lateral of L3, L4, L5, and S1 vertebrae and merged the C-arm imaging using the [employer] n avigation system with the CT of the lumbar spine. After successful merging was completed and confirmed, skin marker was used to joss out the skin incision using the [employer] robotic arm. Bilateral incision was made at this time. Using patient's previous scar incision was made over the L3, L4, L5-S1 interval on the left side. Fascia was incised in line with skin incision. Patient's previously placed hardware over the L4-5 level was identified by dissecting down to the level the hardware using a Bovie and a Mooney. The locking caps which was removed using [employer] screwdriver. The locking maggi was then removed from the tulips of the pedicle screws using a Manish. The pedicle screws were then removed using the screwdriver. The screws were found to have poor purchase due to hardware loosening and indicating pseudoarthrosis at L4-5 level. Pre templated trajectory was used and guided using the [employer] navigation system for left L3, L4, L5 and S1 pedicle screws and right L3, L4 and S1 pedicle screws placement. This was done by using the robotic arm to guide the high-speed bur to make a cortical entry point. Next a drill was placed also using the robotic arm and guided using the navigation system drilling partially through bilateral L3, L4, L5, S1 pedicles. Next L3, L4, L5, S1 pedicle screws it was pre templated and measured was placed onto the power tractor driver and inserted into the pedicles bilaterally. After all 7 screws were placed C-arm imaging was taken of both AP and lateral to confirm the placement. Excellent placement of the screws were confirmed and a matched precisely with the pre planned screw placement using the navigation system. MARs retractor was inserted using [employer]mnisioanton[employer] guidence. Globus MARS retractors was placed inside the incision and docked onto the L3 and L5 lamina. Using microsurgical technique and operating microscope, a L3 and L5 laminectomy and L3-4, L5-S1 facetectomy was performed using a Kerrison rongeur. Patient was found have severe lateral recess and neural foramen stenosis which was fully decompressed after the laminectomy facetectomy. More than 75% of the facets were removed during the process of decompression rendering L4-5 level grossly unstable and required a fusion procedure at the same time. The disc space at L3-4, L5-S1 was identified, and a total diskectomy was performed at L3-4, L5-S1 level. The endplates were decorticated using a rasp and shaver. The total diskectomy and decortication was performed at L3-4, L5-S1 level in order to to accomplish a L3-4, L5-S1 fusion. The local bone from the laminectomy and facetectomy was saved for local bone grafting. After the total diskectomy and decortication was completed, Trifecta bone graft material was combined with local bone that was harvested earlier. At this time, a separate skin is incision was made over the iliac crest. A Jamshidi needle was inserted into the iliac crest through a separate skin incision. 5 cc of bone marrow aspiration was obtained through the separate skin incision using a Jamshidi needle from the iliac crest. The bone marrow aspiration was combined with local bone and the Tr[employer]a bone grafting material. The bone grafting material was placed into the L3-4, L5-S1 interbody space along with a expandable cage. The cages were expanded to its maximum height using the torque limiting screwdriver. The disc preparation as well as the cage insertion were also performed under navigation guidance. After the cage was placed, AP and lateral C-arm imaging was taken to confirm placement of the cage and excellent position was confirmed. The fusion mass on the right side of L4-5 was exposed by performing a right- sided hemilaminectomy at L4-5 level. The hemilaminectomy was performed using the Kerrison rongeur to undercut the lamina as well removing additional epidural scar tissue for purpose of decompressing the epidural space. The fusion mass was explored and was found have visible motion indicating pseudoarthrosis. Globus MARS retractor was inserted and docked onto the L3-4, L4-5 L5-S1 posterolateral gutter. Using the power drill, posterior-lateral decortication was performed at L3-4, L4-5 L5-S1 level until bleeding cortical bone was identified. The remaining bone grafting material was placed into the L3-4, L4-5 L5-S1 posterior lateral gutter he order to accomplish posterolateral fusion at the L3-4, L4-5 L5-S1 level. At this time the tulips were attached to the L3, L4-L5 and S1 pedicle screw shanks. This was done in L3, L4-L5 S1 pedicles bilaterallyAfter measuring the length of the rods, they were inserted into the tulips of the pedicle screws and locked in place using locking caps and torque limiting screwdriver bilaterally. Total 7 caps and 2 titanium rods was used in order to complete the posterior instrumentation construct. After all the hardware was placed, and confirmed with AP and lateral C-arm imaging, the wound was then irrigated with sterile normal saline and packed with Ray-Bandar gauze for 3 min to accomplish hemostasis. After the gauze was removed the deep fascia was closed with #1 Vicryl suture. The subcutaneous layer was closed with 2-0 Vicryl. The skin was closed with skin kristie. Patient tolerated the procedure well. There were no complications. Neuro monitoring system was used to monitor patient's neurologic status throughout entire procedure. There was no disturbance of the neural monitoring signals throughout the case. Complications: none Post-operative Condition: stable Disposition: PACU Plan for aftercare: Admit to inpatient hospital
[2022-07-25] MEDS: SODIUM CHLORIDE 0.9% 1,000 ML 100 ML IV (16:11)
--- NOTE | 2022-07-25 16:45 | PC.NURSE ---
Addendum entered by Danyell Hathaway R.N. 07/25/22 18:44: Went to check on patient to see how his pain level was and he is soundly sleeping. Tolerating ivf of ns at 100cc/hr. Original Note: Patient had a L3-4, L5-S1 TlIF L4-L5 HWR L3-S1 Post Instrumentation. Dressing is cdi to lower back, patient states that before he had his surgery he was having some hip pain and shooting pain down his leg. Patient also states that he has r.foot drop. Skin assessment done and patient has some bruising. He denies pain at this time, he is lying supine and tolerating ice water.
[2022-07-25] MEDS: DOCUSATE 100 MG CAPSULE PO (20:33)
[2022-07-25] MEDS: HYDRALAZINE 25 MG TABLET PO (20:33)
[2022-07-25] MEDS: SENNOSIDES 8.6 MG TABLET 17.2 MG PO (20:34)
--- NOTE | 2022-07-26 01:05 | PC.NURSE ---
Patient is alert and oriented; noted to have bilateral UE tremors. Breath sounds CTA; initially on oxygen at 1L/min with sat of 95% and now with oxygen off is maintaining sats > 92%. Has chronic moist, loose, smokers cough. HRR w/BP being elevated at 150/80 but at last vitals check was 122/55. Denies nausea. BT present but denies flatus. Indwelling catheter is patent; urine is clear, meg. Is turning himself in bed and dangled at bedside. States he uses cane for ambulation related to weakness and right foot drop; has chronic numbness top of right foot. Dressing to back with serosanguinous shadow drainage; outlined. Denies pain. Bilateral SCD's on at shift change but requested they be removed as they make it difficult for him to sleep; educated on DVT prevention and reminded to ankle wave when awake. Fall risk score is high and bed alarm is activated.
[2022-07-26] MEDS: SODIUM CHLORIDE 0.9% 1,000 ML 100 ML IV (02:26)
[2022-07-26 03:05] VITALS: BP 141/64; PULSE 67; RESP 17; TEMP 36.6; O2SAT 95
[2022-07-26] MEDS: CEFAZOLIN 2 GM/100 ML PREMIX 100 ML IV (04:41)
[2022-07-26 06:06] LABS: Hematocrit 33.8 % (41-53); Hemoglobin 11.3 g/dL (13.5-17.5)
[2022-07-26] MEDS: ACETAMINOPHEN 325 MG TABLET 650 MG PO (06:40)
--- NOTE | 2022-07-26 07:19 | PM.DS.1 ---
History of Present Illness History of Present Illness Date Patient Seen: 07/26/22 Time Patient Seen: 07:19 Chief complaint: TLIF Robot Narrative: Operative Date/Time/Diagnoses Date of procedure: 07/25/22 Time of procedure: 08:45 Pre-op diagnosis: 1. L3-4, L5-S1 spinal stenosis with radiculopathy and neurogenic claudication 2. History of L4-5 fusion Post-op diagnosis: same Procedure & Clinicians Procedure: 1. L3-4, L5-S1 posterolateral and posterior interbody fusion 2. L3-4, L5-S1 posterior interbody cage placement 3. L4-5 posterior non-segmental instrumentation removal 4. L4-5 revision laminectomy with exploration of fusion 5. L3-4, L4-5, L5-S1 posterior segmental instrumentation with pedicle screw placement 6. L4-5 posterolatearl fusion 7. [place] of bone marrow from iliac crest through a separate incision 8. Utilization of microsurgical technique and operating microscope 9. Utilization of robotic assisted navigation Same procedure as scheduled: Yes Indications: Patient has been having chronic back pain and worsening lumbar radiculopathy and symptoms of neurogenic claudication.? Patient had prior L4-5 fusion surgery and has been doing well until recently. Patient was found to have significantly worsened adjacent levels with significant spinal stenosis degenerative disc spondylosis. Patient failed multiple conservative management with worsening pain weakness and numbness in his lower extremity.? Patient has been having difficulty performing activity of daily living.? After discussing risks benefits of treatment options, patient elected proceed with surgery. Surgeon: Vinh Lauren Product Support Sales Representative: Jessica Valera Click Yes if Unassisted: No Anesthesia Type: General Operative Notes Closure Type: primary Specimen(s): none sent Prosthetic devices, grafts, tissues, transplants, or devices: Globus CREO MIS screws, RIse cages Applied: catheter Estimated Blood Loss (mL): 100 Blood products transfused: none Discharge Providers Provider Date of admission: 07/25/22 07:29 Discharge Date: 07/26/22 Primary care physician: Li Jimenez PA-C Consults: 07/25/22 15:03 Consult to Occupational Therapy Evaluate & Treat Comment: Physician Instructions: Evaluate and treat Consult to Physical Therapy Evaluate & Treat Comment: Physician Instructions: Evaluate and Treat Discharge provider: Diana Perera PA-C Summary Hospital Course Discharge Diagnosis: spinal stenosis w/ radiculopathy, s/p fusion Hospital Course: Mr Bel-Nor's hospital course was unremarkable. On POD# 1 he was feeling well and wanted to go home with his spouse and daughter. He was taking only Tylenol for pain control. He was eating and voiding without difficulty. He was evaluated by PT prior to discharge. Exam Vital Signs (past 8 hours): - 07/26/22 03:05 Temperature 97.9 F Pulse Rate 67 Respiratory Rate 17 Blood Pressure 141/64 H Pulse Oximetry 95 Oxygen Flow Rate 0 Oxygen Delivery Method Room Air Oxygen Flow Rate 0 Narrative Exam Narrative: 5/5 strength in hip flexors, quadriceps, hamstrings, PF, EHL bilaterally. DF absent on right; this was present prior to surgery. DF 5/5 on left. Sensation to light touch intact throughout BLE. Calves soft, compressible, nontender and without palpable cords or masses. Low back dressing with old bloody drainage, L>R. Objective Labs Result Diagrams: 07/26/22 05:52 Labs: Laboratory Results - last 24 hr 07/26/22 05:52 Hgb 11.3 L Hct 33.8 L PFSH Medical History Cancer Carotid artery stenosis Chronic kidney disease COPD (chronic obstructive pulmonary disease) Easy bruisability Enlarged prostate Fragile skin Gout Hernia HTN (hypertension) Hypercholesterolemia Hypothyroid Lumbar spinal stenosis Numbness and tingling Peripheral vascular disease Personal history of colonic polyps Psoriasis Right foot drop Spinal stenosis Vitamin D deficiency Surgical History (Updated 07/26/22 @ 07:25 by Diana Perera PA-C) History of bladder surgery History of colonoscopy History of femoropopliteal bypass History of left-sided carotid endarterectomy History of lumbar surgery History of lumbar surgery (08/11/18) Hx of appendectomy Hx of tonsillectomy Social History household members: spouse Smoking Status: Current every day smoker alcohol intake: current Discharge Assessment & Plan Assessment and Plan Assessment: spinal stenosis w/ radiculopathy, s/p fusion Plan of Treatment: Discharge home after PT if PT agrees. Multimodal pain control, f/u in 2 weeks. Discharge Plan Discharge Plan Patient Disposition: Home Discharge orders & Medications Prescriptions: New oxycodone 5 mg tablet 5 mg PO Q4H PRN (Reason: pain (scale score 7-10)) Qty: 40 0RF docusate sodium 100 mg Capsule 100 mg PO BID PRN (Reason: constipation) Qty: 60 2RF acetaminophen 325 mg Tablet 650 mg PO Q6HR PRN (Reason: Pain, Mild (1-3)) Qty: 120 1RF Continued lisinopril 5 mg tablet 5 mg PO DAILY hydralazine 25 mg tablet 25 mg PO BID amlodipine 5 mg tablet 5 mg PO DAILY fenofibrate 160 mg tablet 160 mg PO DAILY tamsulosin 0.4 mg Capsule,Extended Release 24hr 0.4 mg PO QAM albuterol sulfate [ProAir HFA] 90 mcg/actuation Hfa Aerosol Inhaler 1 puff INHALATION Q4-6H PRN (Reason: Shortness Of Breath) aspirin [Aspirin Low-Strength] 81 mg Tablet,Delayed Release (Dr/Ec) 81 mg PO DAILY Follow up/Referrals: Li Jimenez, PAAlexaC [Primary Care Provider] - Vinh Lauren MD [Physician] - As previously scheduled (Follow up w/ Dr Lauren on 08/09/2022 @ 1:00 pm at [facility] in [place].) Diet/Activity/Treatments Diet: Diet as Tolerated Activity: No deep bending or twisting at the waist. No lifting more than 10 pounds. Cold/Heat Therapy: Heating pad to back as needed for pain. Skin/Wound/Dressing Care Report to your healthcare provider any signs of infection, such as:: chills, fever, night sweats, unusual drainage and unusual redness Dressing: May shower; keep dressing as dry as possible. May remove dressing if it becomes wet inside and replace with clean, dry gauze. No bathing or otherwise soaking incisions. Do not apply any creams, lotions, or ointments to incisions. Visit Report/Discharge Packet Instructions: DI for Prescription Opioid Use, DI for Transforaminal Lumbar Interbody Fusion Stand Alone Forms: Surgery Discharge Discharge Data Primary Care Provider: Li Jimenez Quality VTE Deep Vein Thrombosis/Pulmonary Embolism Present on Admission: No
[2022-07-26 09:00] VITALS: BP 143/57; PULSE 73; RESP 18; TEMP 36.4; O2SAT 97
[2022-07-26] MEDS: TAMSULOSIN 0.4 MG CAPSULE PO (09:17)
[2022-07-26] MEDS: DOCUSATE 100 MG CAPSULE PO (09:17)
[2022-07-26 09:20] VITALS: BP 154/74; PULSE 75
[2022-07-26] MEDS: lisinopriL 5 MG TABLET PO (09:20)
[2022-07-26 09:21] VITALS: BP 154/74; PULSE 75
[2022-07-26] MEDS: HYDRALAZINE 25 MG TABLET PO (09:21)
--- NOTE | 2022-07-26 10:11 | PT.IIE ---
Current Diagnoses Other spondylosis with radiculopathy, lumbar region (07/25/22) Spinal stenosis, lumbar region without neurogenic claudication (07/25/22) Arthrodesis status (07/25/22) Surgery Performed Operation Date: 07/25/22 08:45 Actual Procedures p L3-4, L5-S1 TLIF, L4-5 HWR, L3-S1 PSF w. posterior instrumentation-[place] - Vinh Lauren MD Surgical History (Last Reviewed 07/25/22 @ 08:13 by Yenifer Lin, RN) History of bladder surgery History of colonoscopy History of femoropopliteal bypass History of left-sided carotid endarterectomy History of lumbar surgery History of lumbar surgery (08/11/18) Hx of appendectomy Hx of tonsillectomy Medical History (Last Reviewed 07/25/22 @ 08:12 by Yenifer Lin, RN) Cancer Carotid artery stenosis Chronic kidney disease COPD (chronic obstructive pulmonary disease) Easy bruisability Enlarged prostate Fragile skin Gout Hernia HTN (hypertension) Hypercholesterolemia Hypothyroid Lumbar spinal stenosis Numbness and tingling Peripheral vascular disease Personal history of colonic polyps Psoriasis Right foot drop Spinal stenosis Vitamin D deficiency Physical Therapy Inpatient Evaluation/Re-Eval M1 PT/OT-IP Prior Functional Status Start: 07/26/22 12:18 Freq: NEEDED Status: Active Protocol: Document 07/26/22 10:11 AB (Rec: 07/26/22 12:29 AB [id number]) Medical Review Prior Functional Status Medical History Reviewed Yes Communication able to make needs known Mobility and Gait pt stated that he is independent with all mobilities and ambulation without AD but occasionally uses a SPC Social History Household Members spouse Living Arrangements House Number of Floors (Floors) One Floor Number of Stairs To Enter/Railing? 3 steps to enter with B rails Home Environment High Toilet,Walk in Shower, Built-In Shower Seat Home Equipment Front Wheel Walker,Straight Cane M2 PT-IP Current Condition Start: 07/26/22 12:18 Freq: NEEDED Status: Active Protocol: Document 07/26/22 10:11 AB (Rec: 07/26/22 12:29 AB [id number]) Physical Therapy Current Condition Current Condition Evaluation Date 07/26/22 Treatment Diagnosis L3-4,L5S1 TLIF; L3-S1 instrum; difficulty in walking Onset Date 07/25/22 M3 PT-IP Subjective Start: 07/26/22 12:18 Freq: NEEDED Status: Active Protocol: Document 07/26/22 10:11 AB (Rec: 07/26/22 12:29 AB [id number]) Subjective Physical Therapy Visit Type Type Initial Evaluation Visit Start Time 10:11 Visit Stop Time 11:00 Total Visit Minutes 49 Number of ROLL CHANGER Visits 0 Physical Therapy Visit Comments Patient Comments agreeable to do PT Therapy Pain Assessment Pain Present Pain Present Denied Pain M4 PT-IP Mobility and Gait Start: 07/26/22 12:18 Freq: NEEDED Status: Active Protocol: Document 07/26/22 10:11 AB (Rec: 07/26/22 12:29 AB [id number]) PT-Bed Mobility Assessment Rolling Type of Rolling Log Rolling Level of Assist Standby Assistance Supine to Sit Supine to Sit Standby Assistance PT-Transfer Assessment Sit to and From Stand Sit to and from Stand Standby Assistance,Contact Guard Assistance,1 Person Assistance,Use of Upper Extremities Equipment Transfer Assistive Device Gait Belt,Front Wheeled Walker Orthotic/Prosthetic Devices or Brace: No Transfers Transfer Destination Chair Transfer Technique ambulated Transfer Ability Level of Assist Standby Assistance,Contact Guard Assistance,1 Person Assistance,Use of Upper Extremities Comments Mobility Comments reviewed back precautions with pt and pt able to recall. pt stated that this is his third back surgery. pt completed supine to sit log roll SBA. able to sit on EOB SBA. completed sit to stand CGA and ambulated in room ~ 20 ft using FWW CGA and cues. increase L knee flexion and slight buckling. pt sat on the chair. educated pt on safety and LLE steadiness and quads activation. completed sit to stand SBA to CGA. pt ambulated again in room using FWW and cued for LLE steadiness SBA to CGA and agreed to ambulate in the hallway. pt completed ~ 150 ft of ambulation using FWW SBA to CGA and cues. completed up/down steps using B rails CGA. pt ambulated back to his room using FWW SBA to CGA. Assessed ambulation using 4WW and pt completed ~ 40 ft SBA. pt sat on chair and positioned. call light and table placed within reach. Gait Assessment Gait Gait Assistance Required: Standby Assistance,Contact Guard Assist Distance (Feet) 150 Able to Maintain Weight Bearing Status Yes During Gait Assistive Devices Assistive Device Gait Belt,Front Wheeled Walker ,4 Wheeled Walker Orthotic/Prosthetic Devices or Brace: No Gait Deviations General Gait Pattern Antalgic,Decreased Stride Length,Decreased Feet Clearance Factors Limiting Gait Function Factors Limiting Gait Function Decreased Activity Tolerance, Decreased Sensation,Decreased Strength,Difficulty Following Directions,Limited Range of Motion,Poor Balance,Poor Safety Awareness Stair Climbing Assessment Evaluation Level of Assist On Stairs Contact Guard Assistance,1 Person Assistance Devices Stair Climbing Assistive Devices Left Railing,Right Railing Technique/Endurance Stair Climbing Direction Ascend and Descend Stair Climbing Technique Step to Step Number of Steps Climbed 3 Query Text: Stair Climbing Set # Repetitions (reps) 3 PT-Balance Assessment Sitting Balance and Reactions Static Sitting Balance Ability Good Dynamic Sitting Balance Ability Good Standing Balance and Reactions Static Standing Balance Ability Fair Dynamic Standing Balance Ability Fair Device Used FWW M5 PT-IP Objective Assessments Start: 07/26/22 12:18 Freq: NEEDED Status: Active Protocol: Document 07/26/22 10:11 AB (Rec: 07/26/22 12:29 [email or web address]) Orientation Orientation/Cognition Level of Alertness Alert Orientation Name,Place,Situation Safety Awareness Decreased Safety Awareness Memory Description Short Term Impaired Gross Range of Motion Lower Extremity ROM Assessment Within Functional Limits Strength Comments Strength Comments LLE: 4/5 RLE: 4-/5 except R ankle: 3-/5 Coordination Assessment Gross Coordination Gross Coordination WNL Sensation Assessment Sensation Gross Sensation Right UE Impaired Sensation Description Numbness Comments Sensation Comments pt stated that he has R anterior foot numbness and is chronic Muscle Tone Muscle Tone WNL Yes M6 PT-IP Treatment Start: 07/26/22 12:18 Freq: NEEDED Status: Active Protocol: Document 07/26/22 10:11 AB (Rec: 07/26/22 12:29 AB [email or web address]) Physical Therapy Treatment Education Education Provided Precautions,Weight Bearing Status,Post-Op Packet,Safety M7 PT-IP Assessment and Plan Start: 07/26/22 12:18 Freq: NEEDED Status: Active Protocol: Document 07/26/22 10:11 AB (Rec: 07/26/22 12:29 AB [email or web address]) PT Summary Assessment and Plan Potential Rehabilitation Potential Fair Status of Condition at Evaluation Stable Summary Impairments Pain,ROM,Strength,Balance, Coordination,Sensation,Tone, Cognition,Bed Mobility, Transfers,Gait,Activity Tolerance Assessment Summary pt requiring SBA to CGA with mobility using FWW/4WW. pt plans to go home with spouse to assist him and may go home when medically stable. Goals Bed Mobility Goal Independent Transfer Goal Independent,Four Wheeled Walker Gait Goal Independent,Four Wheel Walker Gait Distance 250 Other Goals up/down 3 steps B rails mod I Days to Meet Goals 3 Frequency of Treatment Frequency Of Treatment Twice a Day Treatment Plan Physical Therapy Treatment Plan Bed Mobility Training,Transfer Training,Gait Training, Therapeutic Exercise,Balance Retraining,Post Op Education, Discharge Planning,Hot or Cold Pack,Neuromuscular Re-ed, Coordination Retraining,Manual Therapy Precautions Lumbar Precautions Log Roll,No Twisting,Limit Bending,Lifting Restriction of 10 lbs,Gait Belt above Incisional Area Recommendations To Nursing Amount of Assist Needed 1 Person Assist Discharge Recommendations PT Discharge Recommendations Home with Assistance, Outpatient PT Transportation Needs at Discharge Private Vehicle
--- NOTE | 2022-07-26 11:23 | CM.DANOTE ---
Initial Discharge Assessment Note: Case reviewed, met with patient. Introduced self and role Payer: Medicare and self pay PCP: Li Jimenez 76 year old admitted yesterday for TLIF with Dr Lauren and is recovering uneventfully. PT eval pending and if stable may discharge. Patient lives with spouse in [place] and is independent at baseline. Plan: Return home with spouse who will provide transport. SEJ Discharge Planning/Care Management CM Discharge Assessment Start: 07/25/22 11:30 Freq: Status: Active Protocol: Document 07/26/22 11:21 (Rec: 07/26/22 11:23 [id number]) Discharge Planning Assessment Assigned Engineering Faculty Светлана Mcmillan RN/DCP Advance Directives? Yes Advance Directives on File No History Provided By Patient Prior Living Arrangements House Household Members spouse Type of transporation used prior to Drives own vehicle admit Willing to Return to Facility? No Independent with ADL's Yes Is patient alert and oriented? Yes Caregiver for Another No Discharge Plan Home Transportation Arrangement Family to provide transport. Referrals Initiated None needed Whiteboard Updated in Patient Room with Yes name and ext. # of Engineering Faculty Review Status In Process Next Review Type Continued Stay Review Pre-Anesthesia Assessment Start: 07/16/22 07:43 Freq: Status: Complete Protocol: Document 07/16/22 07:43 CAB (Rec: 07/16/22 08:25 CAB [id number]) Pre-Anesthesia Assessment Preferred Name Greg Patient Information Reviewed Via Phone Assessment Assessment Completed With Patient Diagnostic Results BMP/CMP,CBC Comment Labs @ 07/05/22, ECG will do 07/18 w/PCP, COVID screen @ 07/23/22 Primary Care Provider Li Jimenez Seen Specialist in Last 12 Months Yes Specialist Seen General surgeon,Orthopedist Primary Language Dominican Preferred Language Dominican Calciner Operator Helper Required No Height 177.8 cm Weight 72.575 kg Body Mass Index (BMI) 22.9 Hearing Ability Normal Visual Impairment No Limitations Visual Assist None Dentition Type Teeth, Natural Present Barriers to Learning None Other Aids No Hx Anesthesia Reactions No Hx Family Anesthesia Reaction No Hx Malignant Hyperthermia No Hx Blood Transfusions Yes Hx Blood Transfusion Reaction No Anesthesia Review Requested No Dominatrix No alcohol intake current alcohol intake frequency a few times a week Smoking Status Current every day smoker Tobacco type cigarettes how long ago did patient quit smoking Smoking approx 57 years Substance Use Type does not use Pain Present Pain Reported Musculoskeletal Symptoms Abnormal Gait,Back Pain, Difficulty Walking,Joint Pain, Numbness,Radiating Pain into Limb,Tingling History of Falling (Recent or History of No ) Patient is completely paralyzed or No completely immobile Prosthesis or Orthotic Device Cane Mental Status Oriented to own ability Is patient on oxygen? No Does patient have MCKEON/SOB Yes: Hx COPD Hx Sleep Apnea No CPAP/BIPAP use not prescribed Suspected Sleep Apnea No Currently Taking a Beta Gabi No Can You Climb a Flight of Stairs Without Yes: Plays golf 1-2x/week SOB Hx Chest Pain No Hx SOB Yes: Hx COPD Hx Syncope or Dizziness No Anti-Coagulant Therapy Yes: ASA 81mg for carotid dz, pt will check w/PCP if to hold prior Has a Scrap Crusher No: Pt does not follow with cardiology Cardiac Testing Echo @ 03/30/22-no sig change from 2018 Hx Pacemaker/ICD No Pacemaker Rep Required? No Cardiac Clearance Received Not Applicable Diet Type At Home Regular dysphagia No Urinary Catheter Present No Hx Urinary Self Catheterization No Diabetes No Hx Drug Resistant Organism No Presence of External or Internal Medical Yes: lumbar hardware Devices Have you had any close contact with No someone diagnosed with COVID-19? Received a COVID vaccine? Yes Received all doses? Yes Marital Status Lives With spouse Prior Living Arrangements House Number of Floors (Floors) One Floor Support System Spouse Does the Patient Have Assistance After Yes Surgery Patient Discharge Plan Description Return Home Comment Pt advised 2 night length of stay per surgeon Feels Safe in Current Environment Yes Been Physically Hurt or Threatened By a No Person in Current Environment Do you have thoughts of harming yourself None or others? Are you currently considering suicide? No Do you have a plan to hurt yourself or No Plan others? Do You Have Any Spiritual Beliefs That No May Affect Your HC Choices? Do You Have Any Cultural Practices That No May Affect Your HC Choices? Who Can We Speak to About Patient's Care Family, friends Identifying Code for Release of Patient Declines to issue Information Health Care Proxy/Next of Kin Linda () Health Care Proxy Emergency Contact Name Linda ()Jessi ( daughter) Emergency Contact Phone Number Linda: [phone] Jessi : [phone] Advance Directives? No: Declines further information Advance Directives on File No Power of Turf Manager No PAC Instructions Durable medical equipment, Medications to take/avoid, Nasal antibiotic,No ETOH/ petroleum product on skin DOS, NPO,Post-op transportation,Pre -surgical wash,Sturdy shoes/ comfortable clothes,Do not bring valuables and remove jewelry
--- NOTE | 2022-07-26 11:38 | OT.IP.EVAL ---
Current Diagnoses Other spondylosis with radiculopathy, lumbar region (07/25/22) Spinal stenosis, lumbar region without neurogenic claudication (07/25/22) Arthrodesis status (07/25/22) Surgery Performed Operation Date: 07/25/22 08:45 Actual Procedures p L3-4, L5-S1 TLIF, L4-5 HWR, L3-S1 PSF w. posterior instrumentation-[facility]ot - Vinh Lauren MD Past Medical History (Last Reviewed 07/25/22 @ 08:12 by Yenifer Lin, RN) Cancer Carotid artery stenosis Chronic kidney disease COPD (chronic obstructive pulmonary disease) Easy bruisability Enlarged prostate Fragile skin Gout Hernia HTN (hypertension) Hypercholesterolemia Hypothyroid Lumbar spinal stenosis Numbness and tingling Peripheral vascular disease Personal history of colonic polyps Psoriasis Right foot drop Spinal stenosis Vitamin D deficiency Surgical History (Last Reviewed 07/25/22 @ 08:13 by Yenifer Lin, RN) History of bladder surgery History of colonoscopy History of femoropopliteal bypass History of left-sided carotid endarterectomy History of lumbar surgery History of lumbar surgery (08/11/18) Hx of appendectomy Hx of tonsillectomy Occupational Therapy Inpatient Evaluation/Re-Eval M1 PT/OT-IP Prior Functional Status Start: 07/26/22 12:18 Freq: NEEDED Status: Discharge Protocol: Document 07/26/22 10:11 AB (Rec: 07/26/22 12:29 AB [id number]) Medical Review Prior Functional Status Medical History Reviewed Yes Communication able to make needs known Mobility and Gait pt stated that he is independent with all mobilities and ambulation without AD but occasionally uses a SPC Social History Household Members spouse Living Arrangements House Number of Floors (Floors) One Floor Number of Stairs To Enter/Railing? 3 steps to enter with B rails Home Environment High Toilet,Walk in Shower, Built-In Shower Seat Home Equipment Front Wheel Walker,Straight Cane M1 PT/OT-IP Prior Functional Status Start: 07/26/22 13:21 Freq: NEEDED Status: Active Protocol: Document 07/26/22 10:55 [facility] (Rec: 07/26/22 14:52 [facility] [id number]) Medical Review Prior Functional Status Medical History Reviewed Yes Communication able to make needs known Mobility and Gait pt stated that he is independent with all mobilities and ambulation without AD but occasionally uses a SPC Activities of Daily Living and IADL's Pt states able to do all his ADL's and does IADL' s and both pay the bills. 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 Social History Household Members spouse Living Arrangements House Number of Stairs To Enter/Railing? 3 steps to enter with B rails Home Environment High Toilet,Walk in Shower, Built-In Shower Seat Home Equipment Front Wheel Walker,Straight Cane M2 OT-IP Current Condition Start: 07/26/22 13:21 Freq: Status: Active Protocol: Document 07/26/22 10:55 [facility] (Rec: 07/26/22 14:52 [facility] [id number]) Occupational Therapy Current Condition Current Condition Evaluation Date 07/26/22 Treatment Diagnosis S/p L3-4, L5-S1 TLIF, L4-5 hwr , L3-S1 post inst Diagnosis Onset Date 07/25/22 Post Operative Precautions Lumbar Precautions Log Roll,No Twisting,Limit Bending,Lifting Restriction of 10 lbs,Gait Belt above Incisional Area M3 OT- IP Subjective and Pain Start: 07/26/22 13:21 Freq: Status: Active Protocol: Document 07/26/22 10:55 [facility] (Rec: 07/26/22 14:52 [facility] [id number]) OT- Subjective Occupational Therapy Visit Type Type Initial Evaluation Visit Start Time 10:55 Visit Stop Time 11:38 Total Visit Minutes 43 Occupational Therapy Visit Comments Patient Comments Pt agreed to get dressed and wanting to go home. Patient/Caregiver Goals To go home. OT Pain Assessment Pain When Pain Assessed At Rest Pain Present Pain Present Denied Pain M4 OT- IP ADL's Start: 07/26/22 13:21 Freq: Status: Active Protocol: Document 07/26/22 10:55 [facility] (Rec: 07/26/22 14:52 [facility] [id number]) OT [id number] Comments OT Self-Feeding Comments Not at meal time. OT ADL-Grooming Comments OT Grooming Comments Pt not wanting to perform. OT ADL-Oral Care Comments Oral Care Comments Pt not wanting to perform but educated best to spit into a cup or hinge at his hips to best follow his back precautions. OT ADL-Dressing General Eval Upper Body Dressing Ability Standby Assistance Lower Body Dressing Ability Maximum Assistance Comments OT Dressing Comments Pt insists that his will assist him. Able to show pt director of retail analytics, sock aid and long handle shoe horn to be able to assist with his independence and pt able to do well. Pt now considering getting LB dressing equipment to use at home. OT ADL-Toileting Comments OT Toileting Comments Pt able to demonstrate able to lean over appropriately while following his back precautions to be able to wipe . OT ADL-Bathing Comments OT Bathing Comments Pt wanting to shower at home. Re-emphasize for pt to have his cover the dressing before showering. In addition would be beneficial to get a hand held shower spray for home use. M5 OT- IP IADL's Start: 07/26/22 13:21 Freq: Status: Active Protocol: Document 07/26/22 10:55 [facility] (Rec: 07/26/22 14:52 [facility] [id number]) OT-Instrumental Activities of Daily Living Home Safety Awareness Awareness of Need for Assistance at Home Decreased Awareness Home Safety Comments Pt is a bit impulsive and and will benefit at least 24/7 supervision and assist but not 1:1. Medication Management Medication Management Comments At this time would be best for his /daughter to provide supervision for his needs as having decreased safety awareness which maybe from his pain medications. Money Management Money Management Caregiver Provides Assistance Meal Preparation Meal Preparation Caregiver Provides Assist Buggy Driver Buggy Driver Caregiver Provides Assist M6 OT- IP Functional Cognition Start: 07/26/22 13:21 Freq: Status: Active Protocol: Document 07/26/22 10:55 [facility] (Rec: 07/26/22 14:52 [facility] [id number]) Cognitive Factors Limiting Selfcare Function Cognitive Ability Level of Alertness Alert Patient Orientation Name,Place,Situation Attention Span Ability Capable of Focused Attention, Capable of Sustained Attention Ability to Follow Commands Able to Follow One Step Commands with Increased Time, Able to Follow One Step Commands with Repetition Safety Awareness Underestimates Need for Assistance Cognitive Comments Cognitive Assessment Comments Pt is a little forgetful, impulsive and decreased safety awareness at this time . Pt needing increased time for clothing orientation. Pt's pain meds maybe affecting his cognition. OT- Vision and Hearing OT- Hearing Assessment OT- Hearing Assessment WFL OT- Vision Assessment Visual Acuity Glasses For Reading M7 OT- IP Mobility and Balance Start: 07/26/22 13:21 Freq: Status: Active Protocol: Document 07/26/22 10:55 [facility] (Rec: 07/26/22 14:52 [facility] [id number]) OT-Transfer Assessment Sit to and From Stand Sit to and from Stand Standby Assistance Comments Mobility Comments Pt able to battery container tester aluminum front on the recliner in order to get dressing with SBA. OT- Balance Assessment Sitting Balance and Reactions Static Sitting Balance Ability Normal Dynamic Sitting Balance Ability Good Standing Balance and Reactions Static Standing Balance Ability Good Dynamic Standing Balance Ability Fair M8 OT- IP Objective Assessments Start: 07/26/22 13:21 Freq: Status: Active Protocol: Document 07/26/22 10:55 [facility] (Rec: 07/26/22 14:52 [facility] [id number]) OT-Muscle Tone Assessment Muscle Tone WNL Yes M9 OT- IP Assessment and Plan Start: 07/26/22 13:21 Freq: Status: Active Protocol: Document 07/26/22 10:55 [facility] (Rec: 07/26/22 14:52 [facility] [id number]) OT Summary Assessment and Plan Potential Rehabilitation Potential Good Analytic Complexity at Evaluation Low Summary OT Impairments Functional Mobility,Dressing, Toileting,Bathing Progress Towards Goals Progressing Toward Goals Assessment Summary Pt low complexity and main barriers are steps, needing cues for safety awareness and reminders to incorporate his back precautions for ADL needs. Pt to go home with his and daughter to assist as needed. Goals Dressing Goal Independent Toileting Goal Independent Bathing Goal Standby Assistance Toilet Transfer Goal Independent Shower Transfer Goal Independent Days to Meet Goals 5 Frequency of Treatment Frequency Of Treatment Once a Day Treatment Plan OT Treatment Plan ADL Training,Functional Mobility,Patient/Family Education,Discharge Planning Discharge Recommendations OT Discharge Recommendations Home with 29/04 Assist Available Transportation Needs at Discharge Private Vehicle
--- NOTE | 2022-07-26 12:44 | PC.NURSE ---
Pt dressed and ready for d/c home. No tele and IV removed. Pt denies having medications held at the hospital pharmacy or items being held in the safe. Pt to be transported home via pov with . New prescriptions sent electronically to the pharmacy and went over new medications and medications to continue. Discussed discharge instructions including no bending, twisting, lifting more than 10 pounds, s/s of infection to report to healthcare provider. Provided education about lumbar fushion, opioids, stroke s/s. Pt taken out via wheel chair by PAINT [employer] PRODUCTION SUPERVISOR with all belongings.
== END 2022-07-26 12:49 | disposition home or self-care (01) | DRG 454 ==
PROVIDERS: Admitting Provider Orthopaedic Surgery Orthopaedic Surgery of the Spine; PCP Student in an Organized Health Care Education/Training Program; Referring Provider Orthopaedic Surgery Orthopaedic Surgery of the Spine; Visit Provider Orthopaedic Surgery Orthopaedic Surgery of the Spine
PROC: 0SG3071 Fusion of Lumbosacral Joint with Autologous Tissue Substitute, Posterior Approach, Posterior Column, Open Approach (ICD-10-PCS; principal; 2022-07-25 08:45)
DX: M48.062 Spinal stenosis, lumbar region with neurogenic claudication (principal); M96.0 Pseudarthrosis after fusion or arthrodesis; T84.038A Mechanical loosening of other internal prosthetic joint, initial encounter; M54.17 Radiculopathy, lumbosacral region; M43.16 Spondylolisthesis, lumbar region; M54.16 Radiculopathy, lumbar region; M48.07 Spinal stenosis, lumbosacral region; I10 Essential (primary) hypertension; J44.9 Chronic obstructive pulmonary disease, unspecified; E78.5 Hyperlipidemia, unspecified; N40.0 Benign prostatic hyperplasia without lower urinary tract symptoms; F17.210 Nicotine dependence, cigarettes, uncomplicated; Z20.822 Contact with and (suspected) exposure to COVID-19; Z98.1 Arthrodesis status
CPT/HCPCS: 36415; 72100; 76000; 82962; 85014; 85018; 87635; 97116; 97161; 97165; 97535; C9803; C1713; C1831; C9290; J0171; J0330; J0690; J1100; J1170; J2250; J2405; J2704; J3010

== ENCOUNTER → 2022-08-20 11:05 | Outpatient (CLI) | payer MEDICARE, SELFPAY ==
[2022-07-25 07:33] VITALS: BMI 22.2
[2022-08-20 12:20] LABS: COVID19 -Nasal RAPID Negative (Negative)
== END ==
PROVIDERS: PCP Student in an Organized Health Care Education/Training Program; Visit Provider Surgery
DX: Z01.812 Encounter for preprocedural laboratory examination (principal); Z20.822 Contact with and (suspected) exposure to COVID-19
CPT/HCPCS: 87635

== ENCOUNTER 2022-08-21 21:24 | Inpatient (IN) | payer MEDICARE, SELFPAY ==
[2018-08-11 17:20] VITALS: BMI 149.0
[2022-07-25 07:33] VITALS: BMI 22.2
[2022-08-17 08:10] VITALS: BMI 22.2
[2022-08-21] VITALS (23 sets, daily range): BP systolic 108–169; BP diastolic 45–78; PULSE 63–95; RESP 13–24; TEMP 36.3–36.7; O2SAT 90–98; BMI 22.2
--- NOTE | 2022-08-21 | DI.CT.S_ITS ---
PROCEDURE: CT ANGIO HEAD AND NECK INDICATIONS: altered LOC TECHNIQUE: After the administration of intravenous contrast, 1 mm thick sections acquired from the aortic arch through the [place]. Post-contrast 4.5 mm thick sections then re-acquired from the foramen magnum to the vertex. 3-dimensional wxlspdf-ppeuziuhw-pqtkwcifeu (MIP) and/or volume rendering reformats were acquired of the central intracranial vasculature and neck separately. For radiation dose reduction, the following was used: automated exposure control, adjustment of mA and/or kV according to patient size. COMPARISON: None. FINDINGS: Image quality: Motion degraded Head angiography: Anterior circulation: ICAs: Pibw-hx-lgbqqmye bilateral cavernous atherosclerotic disease. The left ICA is occluded more proximally. ACAs: Normal and symmetric MCAs: Opacification is seen bilaterally, likely due to collateral flow. AComm: No aneurysm Venous sinuses: patent Posterior circulation: Dominance: Equal Vertebral arteries: No stenosis or occlusion. No aneurysm. 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 Tbvd-fk-kgrbybso disease in the left subclavian. CCAs: No stenosis, occlusion, or aneurysm. ICA origins (by NASCET criteria): No hemodynamically significant narrowing in the right ICA origin. ICAs: The right ICA is patent. The left ICA is occluded proximally, with partial reconstitution at the level of the cavernous carotid. ECAs: Origins are patent. Vertebral arteries: Moderate right origin narrowing. Soft tissues: No significant mass, aneurysm, or lymphadenopathy Lung apices: Emphysema and scarring. Bones: Sequelae of chronic sinus disease. Degenerative changes. IMPRESSION: Occlusion of the left proximal ICA with reconstitution of flow in the intracranial vessels. Other findings as above Any quantitative measurements of stenosis were performed using NASCET criteria. Dictated by: Guy Tompkins M.D. on 08/21/2022 at 18:04 Approved by: Guy Tompkins M.D. on 08/21/2022 at 18:14
[2022-08-21] MEDS: LACTATED RINGERS 1,000 ML 42 ML IV ×2 (12:12→14:25)
--- NOTE | 2022-08-21 13:21 | PM.HP.1 ---
History of Present Illness History of Present Illness Date Patient Seen: 08/21/22 Time Patient Seen: 13:21 Chief complaint: OPEN RIGHT INGUINAL HERNIA REPAIR W/MESH Narrative: Abram is here for his right inguinal hernia repair. He had his back surgery last month with good result. No other changes to his health. Patient History Medical History (Updated 08/17/22 @ 08:13 by Munira Roe RN) Bladder cancer Cancer Carotid artery stenosis Chronic kidney disease COPD (chronic obstructive pulmonary disease) Diverticulosis Easy bruisability Enlarged prostate Fragile skin Gout Hernia HTN (hypertension) Hypercholesterolemia Hypothyroid Lumbar spinal stenosis Numbness and tingling Peripheral vascular disease Personal history of colonic polyps Psoriasis Right foot drop Spinal stenosis Vitamin D deficiency Surgical History (Updated 08/17/22 @ 08:14 by Munira Roe RN) History of bladder surgery History of colonoscopy History of femoropopliteal bypass History of left-sided carotid endarterectomy History of lumbar spinal fusion (07/25/22) History of lumbar surgery History of lumbar surgery (08/11/18) Hx of appendectomy Hx of hand surgery Hx of tonsillectomy Family & Social History Social History: household members spouse Tobacco & Substance use: Tobacco type cigarettes Smoking Status Current every day smoker alcohol intake current alcohol intake frequency a few times a week Substance Use Type does not use Meds Home Medications and Allergies Home Medications Medication Instructions Recorded Confirmed Type tamsulosin 0.4 mg capsule 0.4 mg PO QAM 05/01/18 08/21/22 History albuterol sulfate 90 mcg/actuation 1 puff inhalation Q4-6H PRN 12/18/18 08/17/22 History aerosol inhaler (ProAir HFA) Shortness Of Breath amlodipine 5 mg tablet 5 mg PO DAILY 07/04/22 08/21/22 History fenofibrate 160 mg tablet 160 mg PO DAILY 07/04/22 08/21/22 History hydralazine 25 mg tablet 25 mg PO BID 07/04/22 08/21/22 History lisinopril 5 mg tablet 5 mg PO DAILY 07/04/22 08/17/22 History aspirin 81 mg tablet,delayed 81 mg PO DAILY 07/16/22 08/21/22 History release acetaminophen 325 mg tablet 650 mg PO Q6HR PRN Pain, Mild 07/26/22 08/21/22 Rx (1-3) #120 tabs Allergies Allergy/AdvReac Type Severity Reaction Status Date / Time No Known Drug Allergies Allergy Verified 08/21/22 12:17 Exam Vital Signs (past 8 hours): - 08/21/22 12:35 Temperature 98.1 F Pulse Rate 88 Respiratory Rate 18 Blood Pressure 162/76 H Pulse Oximetry 98 Oxygen Delivery Method Room Air Oxygen Delivery Method Room Air Narrative Exam Narrative: Right inguinal hernia Well-healed backed surgical scar with a small seroma deep to the incision Assessment & Plan Assessment and plan (1) Reducible right inguinal hernia: Status: Acute Plan Plan for open right inguinal hernia repair with mesh Time Spent With Patient Critical Care time: I spent a total of [] minutes of critical care time on this patient's care today; this time is exclusive of procedural time.
[2022-08-21] MEDS: CEFAZOLIN 2 GM/100 ML PREMIX 100 ML IV (14:15)
--- NOTE | 2022-08-21 14:27 | SUR.OPER ---
Supine on padded OR bed, head on pillow, arms secured on padded arm boards at <90 degrees abduction, legs uncrossed, safety belt at thigh, pillow under knees.
[2022-08-21] MEDS: BUPIVACAINE 0.5% W/ EPI (PF) 30 ML VIAL INJ (14:38)
[2022-08-21] MEDS: LIDOCAINE 1% 20 ML INJ (14:39)
--- NOTE | 2022-08-21 15:52 | P.OP_ITS ---
Operative Date/Time/Diagnoses Date of procedure: 08/21/22 Time of procedure: 15:53 Pre-op diagnosis: Right inguinal hernia Post-op diagnosis: same Procedure & Clinicians Procedure: Open right inguinal hernia repair with mesh Same procedure as scheduled: Yes Surgeon: Dat Ellsworth Operative Notes Procedure in detail: Preoperative antibiotic was administered. The patient was brought to the operating room and placed on the table in supine position general anesthesia was induced. The right groin was prepped and draped in the normal fashion and a time-out was performed. Roughly 10 mL of local anesthetic were injected into the skin and subcutaneous adipose tissue over the right groin. A 6 cm incision was made over the right inguinal canal. Dissection was carried down through the subcutaneous adipose tissue. We exposed the external oblique aponeurosis in the direction of the fibers. Additional local was injected deep to the aponeurosis. A 15 blade scalpel was used to susan the external oblique aponeurosis. Metzenbaum scissors were used to carefully open the aponeurosis in the direction of the fibers taking care not to injure the underlying ilioinguinal nerve. We completely exposed the inguinal canal. The cord was dissected free from the inguinal ligament and floor of the inguinal canal and the external oblique aponeurosis was dissected off of the internal oblique taking care not to injure the hypogastric nerve. We encircled the cord with a Di drain for retract ion. There was a fatty indirect hernia. Fat was reduced into the abdomen with the help of some Trendelenburg. We then placed a polypropylene mesh against the floor of the inguinal canal. The mesh was secured with multiple interrupted 3-0 Prolene sutures to the pubic tubercle and shelving edge of the inguinal ligament as well as to the conjoint tendon medially. We overlapped the tails to recreate an internal ring and secured the medial tail to the inguinal ligament with additional sutures. We injected some more local into the fatty tissue in the inguinal canal and cord. Finally, we removed the [place] drain and closed the external oblique fascia with a running 3-0 Vicryl suture. Skin was closed with interrupted 3-0 Vicryl dermal sutures and a running 4 Monocryl subcuticular stitch. EBL 10 mL The patient was awakened and brought to recovery room. Post-operative Condition: stable Disposition: PACU
--- NOTE | 2022-08-21 16:31 | DI.CT.S_ITS ---
PROCEDURE: CT STROKE INDICATIONS: altered LOC TECHNIQUE: Noncontrast 4.5 mm thick angled axial sections acquired from the foramen magnum to the vertex, with coronal reformats. For radiation dose reduction, the following was used: automated exposure control, adjustment of mA and/or kV according to patient size. COMPARISON: None. FINDINGS: Image quality: Excellent. CSF spaces: Basal cisterns are patent. No extra-axial fluid collections. Ventricles are normal in size and shape. Brain: No midline shift. No intracranial masses or hemorrhage. Colon-white matter interface is normal. Moderate cerebral and cerebellar volume loss with multifocal white matter chronic ischemic change noted. Atherosclerotic calcification noted associated with cavernous segments of both internal carotid arteries. Skull and face: Calvarium and visualized facial bones are intact, without suspicious lesions. Sinuses: Right maxillary mucosal debris and osseous wall thickening reflects chronic sinusitis IMPRESSION: 1. Moderate atrophy and chronic ischemic change without intracranial hemorrhage or mass effect. 2. Chronic right maxillary mucosal sinus disease. This study fulfills neurological imaging criteria for inclusion or exclusion of acute stroke therapies based on available published neurological imaging guidelines. Note: Critical results were discussed with the patient's nurse in the PACU, Nurse Salazar, at 04:07 PM [place] time on 08/21/22 Approved by: Patrick Sage M.D. on 08/21/2022 at 16:08
--- NOTE | 2022-08-21 16:36 | SUR.PHASEI ---
Late entry : at 1620 patient still slow to respond to PACU nurse; not following commands, unable to verbalize after prompted by nursing staff; Blood sugar 111; VSS; Code Stroke called overhead; anesthesia, ER physician and Stroke team to PACU bedside. Labs ordered; patient to CT scan via stretcher with staff.
[2022-08-21 17:00] LABS: Add Manual Diff / Slide Review NO; Basophils Absolute Auto 0 /uL (0-100); Basophils Percent Auto 0.3 % (0-2); Eosinophils Absolute Auto 0 /uL (0-450); Eosinophils Percent Auto 0.4 % (2-4); Hemoglobin 11.1 g/dL (13.5-17.5); Lymphocytes Absolute Auto 300 /uL (1100-4500); Lymphocytes Percent Auto 5.2 % (25-40); Mean Corpuscular HGB Conc 33.7 % (30-36); Mean Corpuscular Hemoglobin 31.1 PG (26-34); Mean Corpuscular Volume 92.2 fL (80-100); Monocytes Absolute Auto 100 /uL (0-900); Monocytes Percent Auto 1.4 % (3-14); Neutrophils Absolute Auto 5900 /uL (1500-7000); Neutrophils Percent Auto 92.7 % (50-75); Platelet Count 157 X10^3/uL (150-400); Red Blood Cell Count 3.57 X10^6/uL (4.5-5.9); Red Cell Distribution Width 14.7 % (11.6-14.8); White Blood Cell Count 6.4 X10^3/uL (4.5-11.0)
[2022-08-21 17:17] LABS: INR 1.1 (0.9-1.3); Prothrombin Time 12.6 SECONDS (10.1-12.7)
[2022-08-21 17:22] LABS: Alanine Aminotransferase 17 IU/L (<50); Albumin 2.8 g/dL (3.5-5.0); Albumin Globulin Ratio 1.1 (1.0-2.8); Alkaline Phosphatase 72 U/L (38-126); Aspartate Aminotransferase 23 IU/L (17-59); BUN Creatinine Ratio 20.5 (6-22); Bilirubin Total 0.2 mg/dL (0.2-1.3); Blood Urea Nitrogen 23 mg/dL (9-20); Calcium 8.3 mg/dL (8.4-10.2); Carbon Dioxide 24 mmol/L (22-32); Chloride 104 mmol/L (98-107); Estimated Glomerular Filt Rate > 60 mL/min (>60); Globulin 2.5 g/dL (1.7-4.1); Glucose 104 mg/dL (80-110); HEMOLYSIS < 15 (0-50); Sodium 133 mmol/L (137-145); Total Protein 5.3 g/dL (6.3-8.2)
[2022-08-21 17:34] LABS: Troponin I < 0.012 ng/mL (0.01-0.034)
--- NOTE | 2022-08-21 17:36 | DI.ECHO.S_ITS ---
[place] [facility]---------+ [facility] +---------+ : : [address] : : : : [id number] : : : : Phone: [phone]---------+ Echocardiogram Report + + :Name: CRICKET MACIEL Study Date: 08/22/2022 Height: 70 in : :[facility] ReadingLocation: Weight: 155 lb : : Gender: Male BSA: 1.9 m2 : :: 1945 Age: 77 yrs BP: 149/67 mmHg: :Reason For Study: STROKE : :Ordering Physician: ZAKIYA LAN : :Diann Hilton Performed By: Carmina Marte : :Referring: ZAKIYA LAN D.O. : + + Interpretation Summary The ejection fraction is estimated to be 60-65%. Diastolic parameters suggest probable normal left ventricular diastolic function and normal filling pressures. The right ventricle is normal in size and function. The right ventricular systolic pressure is estimated to be at least 39 mmHg based on an estimated right atrial pressure of 15 mm Hg. There is no Doppler evidence for an interatrial shunt. The ascending aorta is mildly enlarged 4.1cm No significant valvular disease. No significant change from prior study in 03/2022 Procedure: A two-dimensional transthoracic echocardiogram with color flow and Doppler was performed. The study quality was technically adequate. Comparison is made with the echocardiogram of 03/30/2022. The patient was in sinus rhythm with heart rates between 62-72 bpm during the exam. Left Ventricle: The left ventricle is normal in size. There is mild concentric left ventricular hypertrophy. The ejection fraction is estimated to be 60-65%. There are no obvious focal wall motion abnormalities noted but poor endocardial definition reduces the sensitivity for the detection of such. Diastolic parameters suggest probable normal left ventricular diastolic function and normal filling pressures. Right Ventricle: The right ventricle is normal in size and function. Atria: The left atrial size is normal. Right atrial size is normal. There is no Doppler evidence for an interatrial shunt. Mitral Valve: The mitral valve leaflets appear mildly thickened, but open well. There is mild mitral annular calcification. There is trace mitral regurgitation. Aortic Valve: There is mild aortic valve sclerosis. The aortic valve is slightly calcified. There is no aortic valve stenosis. There is trace aortic regurgitation. Tricuspid Valve: The tricuspid valve is normal in structure and function. There is trace tricuspid regurgitation. The right ventricular systolic pressure is estimated to be at least 39 mmHg based on an estimated right atrial pressure of 15 mm Hg. Pulmonic Valve: The pulmonic valve is not well seen, but is grossly normal. There is no pulmonic valvular regurgitation. Great Vessels: The aortic root is normal size. The ascending aorta is mildly enlarged. The IVC is dilated (diameter is greater than 2.1 cm) and it collapses less than 50% with a sniff. This suggests a high right atrial pressure of 15 mm Hg. Pericardium/ Pleura There is no pericardial effusion. There is no pleural effusion. MMode/2D Measurements & Calculations LVIDd: 4.4 cm LVOT diam: 2.1 cm LVIDs: 3.2 cm Ao root diam: 3.9 cm FS: 27.5 % asc Aorta Diam: 4.1 cm EPSS: 0.69 cm Ao Arch Diam (Prox Trans): 1.8 cm IVSd: 1.1 cm LVPWd: 1.00 cm LV banerjee. diameter/BSA (cm/m^2): 2.4 LV sys. diameter/BSA (cm/m^2): 1.7 LA A2 area: 24.1 cm2 RA long axis: 5.0 cm LA A4 area: 12.6 cm2 RA area: 14.6 cm2 LA length (vol): 4.2 cm RA vol: 36.0 ml LA vol: 60.9 ml RA : 19.2 ml/m2 LA vol index: 32.5 ml/m2 IVC diam: 2.3 cm RVD1 (basal): 3.4 cm RVD2 (mid): 3.1 cm TAPSE: 2.0 cm Doppler Measurements & Calculations Ao V2 max: 133.3 cm/sec LVOT Max Ulices: 96.1 cm/sec Ao V2 mean: 87.4 cm/sec LV V1 max P.7 mmHg Ao max P.1 mmHg LV V1 VTI: 22.2 cm Ao mean P.5 mmHg FRANCISCO(I,D): 2.7 cm2 Ao V2 VTI: 28.3 cm FRANCISCO(V,D): 2.5 cm2 sev ratio: 0.79 FRANCISCO indexed to BSA (cm^2/m^2): 1.5 MV E max ulices: 93.3 cm/sec TR max ulices: 244.2 cm/sec MV A max ulices: 106.7 cm/sec TR max P.9 mmHg MV E/A: 0.87 PA V2 max: 81.6 cm/sec Med Peak E' Ulices: 7.9 cm/sec PA V2 mean: 56.6 cm/sec E/E' med: 11.8 PA mean P.4 mmHg Lat Peak E' Ulices: 7.3 cm/sec PA pr(Accel): 32.8 mmHg E/E' lat: 12.9 E/e' average: 12.4 MV dec time: 0.28 sec SV(LVOT): 77.1 ml Reading Physician:MIKIE
--- NOTE | 2022-08-21 17:38 | DI.MRI.S_ITS ---
PROCEDURE: MR HEAD/BRAIN WO CON INDICATIONS: stroke TECHNIQUE: Noncontrast axial T1 spin echo, axial T2 fast spin echo, sagittal and axial FLAIR, coronal T2 fast spin echo, axial gradient echo, axial diffusion and ADC through the brain. COMPARISON: None. FINDINGS: Image quality: Motion degraded CSF spaces: Basal cisterns are patent. Lateral ventricles are symmetric. Volume: Periventricular white matter FLAIR signalis commonly seen with chronic small vessel disease. Volume loss is present. These findings are moderate Brain: Tiny perirolandic infarct in the left hemisphere (5/69). Tiny infarct the in the anterior limb of the left internal capsule. There is also subtle possible diffusion restriction along the left insula (6/11). No acute hemorrhage. Craniofacial structures: No displaced fracture. Sinuses are clear. Orbits are intact. IMPRESSION: Multifocal small left hemispheric infarcts as above. Dictated by: Guy Tompkins M.D. on 08/21/2022 at 19:31 Approved by: Guy Tompkins M.D. on 08/21/2022 at 19:35
[2022-08-21] MEDS: SODIUM CHLORIDE 0.9% 500 ML IV (18:03)
[2022-08-21] MEDS: ASPIRIN 325 MG TABLET PO (18:57)
[2022-08-21 18:59] LABS: Cholesterol 119 mg/dL (140-199); HDL Cholesterol 51 mg/dL (40-60); LDL Cholesterol Calculated 55 mg/dL (<100); Magnesium 1.8 mg/dL (1.6-2.3); Triglycerides 67 mg/dL (35-150)
[2022-08-21 19:02] LABS: Hemoglobin A1C% w Est Avg Glu 5.3 % (4.0-6.0)
--- NOTE | 2022-08-21 19:41 | PM.CN ---
History of Present Illness Consult details Date Patient Seen: 08/21/22 Time Patient Seen: 16:00 Chief complaint: OPEN RIGHT INGUINAL HERNIA REPAIR W/MESH Narrative: Abram Moscoso is a 77-year-old male with past medical history of carotid artery stenosis s/p left endarterectomy in 2015, hypertension, hyperlipidemia, hypothyroidism, lumbar spinal stenosis s/p back surgery in July 2022, COPD, peripheral vascular disease, and bladder cancer who had a code stroke called in the PACU following inguinal hernia repair surgery. Patient's last known normal was 1400 per anesthesia records uncomplicated surgery but after awakening in the PACU he was unable to speak, had right facial droop and could not move his right upper extremity. NIH was 19. Stat head CT which showed no intracranial hemorrhage. Internal Medicine hospitalist were consulted for management of possible stroke. Tele stroke pourer crane ladle was consulted who stated despite being in the time window for tPA, patient's recent back surgery 1 month ago disqualified him for thrombolytic therapy. CTA head resulted showing occluded left proximal ICA stroke spoke with stroke interventionalist at said the ICA thrombus was not amenable to thrombectomy recommended medical management only full-dose aspirin daily. Meds Home Medications and Allergies Home Medications Medication Instructions Recorded Confirmed Type tamsulosin 0.4 mg capsule 0.4 mg PO QAM 05/01/18 08/21/22 History albuterol sulfate 90 mcg/actuation 1 puff inhalation Q4-6H PRN 12/18/18 08/17/22 History aerosol inhaler (ProAir HFA) Shortness Of Breath amlodipine 5 mg tablet 5 mg PO DAILY 07/04/22 08/21/22 History fenofibrate 160 mg tablet 160 mg PO DAILY 07/04/22 08/21/22 History hydralazine 25 mg tablet 25 mg PO BID 07/04/22 08/21/22 History lisinopril 5 mg tablet 5 mg PO DAILY 07/04/22 08/17/22 History aspirin 81 mg tablet,delayed 81 mg PO DAILY 07/16/22 08/21/22 History release acetaminophen 325 mg tablet 650 mg PO Q6HR PRN Pain, Mild 07/26/22 08/21/22 Rx (1-3) #120 tabs hydrocodone 5 mg-acetaminophen 325 1 tab PO BID PRN pain #7 tabs 08/21/22 Rx mg tablet Allergies Allergy/AdvReac Type Severity Reaction Status Date / Time No Known Drug Allergies Allergy Verified 08/21/22 12:17 Review of Systems Review of Systems Narrative: All other systems reviewed with the patient and are negative unless otherwise stated. Exam Vital Signs (past 8 hours): - 08/21/22 12:35 08/21/22 15:41 08/21/22 15:46 Temperature 98.1 F 97.3 F L Pulse Rate 88 78 78 Respiratory Rate 18 24 17 Blood Pressure 162/76 H 132/59 L 126/65 Pulse Oximetry 98 90 L 90 L Oxygen Delivery Method Room Air Room Air Room Air Oxygen Flow Rate 08/21/22 15:51 08/21/22 15:56 08/21/22 16:01 Temperature 97.6 F Pulse Rate 70 71 74 Respiratory Rate 21 20 13 Blood Pressure 134/66 128/65 126/57 L Pulse Oximetry 92 94 95 Oxygen Delivery Method Nasal Cannula Nasal Cannula Nasal Cannula Oxygen Flow Rate 3 3 3 08/21/22 16:06 08/21/22 16:11 08/21/22 16:16 Temperature Pulse Rate 87 74 77 Respiratory Rate 23 23 18 Blood Pressure 150/65 H 134/60 129/60 Pulse Oximetry 95 97 95 Oxygen Delivery Method Nasal Cannula Nasal Cannula Nasal Cannula Oxygen Flow Rate 3 3 08/21/22 16:20 08/21/22 16:51 08/21/22 16:56 Temperature Pulse Rate 74 78 95 H Respiratory Rate 18 21 16 Blood Pressure 138/58 L 108/45 L 132/62 Pulse Oximetry 93 96 96 Oxygen Delivery Method Nasal Cannula Nasal Cannula Nasal Cannula Oxygen Flow Rate 3 2 2 08/21/22 17:08 08/21/22 17:18 08/21/22 17:29 Temperature Pulse Rate 74 77 75 Respiratory Rate 18 21 18 Blood Pressure 131/65 137/64 116/59 L Pulse Oximetry 95 94 95 Oxygen Delivery Method Nasal Cannula Room Air Room Air Oxygen Flow Rate 2 08/21/22 17:39 Temperature 97.6 F Pulse Rate 72 Respiratory Rate 20 Blood Pressure 151/66 H Pulse Oximetry 92 Oxygen Delivery Method Oxygen Flow Rate 2 Oxygen Delivery Method Room Air Oxygen Flow Rate 2 Narrative Exam Narrative: GEN: Appears bewildered, unable to speak HEENT: moist mucous membranes, PERRL NECK: trachea midline, no JVD CV: regular rate and rhythm, no murmurs PULM: clear bilaterally ABD: soft, nontender, nondistended, no organomegaly EXT: warm and well perfused with no edema NEURO: No move right upper extremity, strength intact in left upper extremity, right facial droop present, aphasia present, wiggling toes of both feet Objective Labs Result Diagrams: 08/21/22 16:45 08/21/22 16:45 Labs: Laboratory Results - last 24 hr 08/21/22 08/21/22 08/21/22 16:45 16:45 16:45 WBC 6.4 RBC 3.57 L Hgb 11.1 L Hct 33.0 L MCV 92.2 MCH 31.1 MCHC 33.7 RDW 14.7 Plt Count 157 Neut % (Auto) 92.7 H Lymph % (Auto) 5.2 L [place] % (Auto) 1.4 L Eos % (Auto) 0.4 L Baso % (Auto) 0.3 Neut # (Auto) 5900 Lymph # (Auto) 300 L [place] # (Auto) 100 Eos # (Auto) 0 Baso # (Auto) 0 PT 12.6 INR 1.1 Sodium 133 L Potassium 4.0 Chloride 104 Carbon Dioxide 24 BUN 23 H Creatinine 1.12 Estimated GFR > 60 BUN/Creatinine Ratio 20.5 Glucose 104 Hemoglobin A1c Calcium 8.3 L Magnesium Total Bilirubin 0.2 AST 23 ALT 17 Alkaline Phosphatase 72 Troponin I < 0.012 Total Protein 5.3 L Albumin 2.8 L Globulin 2.5 Albumin/Globulin Ratio 1.1 Triglycerides Cholesterol LDL Cholesterol, Calc HDL Cholesterol Nasal Screen MRSA (PCR) 08/21/22 08/21/22 08/21/22 16:45 16:45 16:45 WBC RBC Hgb Hct MCV MCH MCHC RDW Plt Count Neut % (Auto) Lymph % (Auto) [place] % (Auto) Eos % (Auto) Baso % (Auto) Neut # (Auto) Lymph # (Auto) [place] # (Auto) Eos # (Auto) Baso # (Auto) PT INR Sodium Potassium Chloride Carbon Dioxide BUN Creatinine Estimated GFR BUN/Creatinine Ratio Glucose Hemoglobin A1c 5.3 Calcium Magnesium 1.8 Total Bilirubin AST ALT Alkaline Phosphatase Troponin I Total Protein Albumin Globulin Albumin/Globulin Ratio Triglycerides 67 Cholesterol 119 L LDL Cholesterol, Calc 55 HDL Cholesterol 51 Nasal Screen MRSA (PCR) 08/21/22 17:43 WBC RBC Hgb Hct MCV MCH MCHC RDW Plt Count Neut % (Auto) Lymph % (Auto) [place] % (Auto) Eos % (Auto) Baso % (Auto) Neut # (Auto) Lymph # (Auto) [place] # (Auto) Eos # (Auto) Baso # (Auto) PT INR Sodium Potassium Chloride Carbon Dioxide BUN Creatinine Estimated GFR BUN/Creatinine Ratio Glucose Hemoglobin A1c Calcium Magnesium Total Bilirubin AST ALT Alkaline Phosphatase Troponin I Total Protein Albumin Globulin Albumin/Globulin Ratio Triglycerides Cholesterol LDL Cholesterol, Calc HDL Cholesterol Nasal Screen MRSA (PCR) Negative for mrsa PFSH Medical History (Updated 08/17/22 @ 08:13 by Munira Roe RN) Bladder cancer Cancer Carotid artery stenosis Chronic kidney disease COPD (chronic obstructive pulmonary disease) Diverticulosis Easy bruisability Enlarged prostate Fragile skin Gout Hernia HTN (hypertension) Hypercholesterolemia Hypothyroid Lumbar spinal stenosis Numbness and tingling Peripheral vascular disease Personal history of colonic polyps Psoriasis Right foot drop Spinal stenosis Vitamin D deficiency Surgical History (Updated 08/17/22 @ 08:14 by Munira Roe RN) History of bladder surgery History of colonoscopy History of femoropopliteal bypass History of left-sided carotid endarterectomy History of lumbar spinal fusion (07/25/22) History of lumbar surgery History of lumbar surgery (08/11/18) Hx of appendectomy Hx of hand surgery Hx of tonsillectomy Social History household members: spouse Tobacco & Substance Use Smoking Status: Current every day smoker alcohol intake: current Assessment & Plan Assessment & Plan narrative: # acute left stroke -presented with acute right-sided deficits following hernia repair surgery -MRI head revealed 3 small left-sided strokes, CTA head with occlusion of left proximal common carotid artery not amenable to thrombectomy per tele stroke -not tPA candidate secondary to spinal surgery 1 month ago -medical management only with aspirin 325 mg daily -start Lipitor 80 mg nightly -obtain echo -obtain bilateral carotid ultrasound -telemetry -tele stroke recommended keeping blood pressure up and giving 500 NS bolus, hold home blood pressure meds -PT/OT # right inguinal hernia repair with mesh, recs per Dr. Ellsworth general surgery # hypertension # hyperlipidemia # lumbar spinal stenosis s/p lumbar surgery # hypothyroidism Code status is full code. COVID negative. DVT prophylaxis with Lovenox. Proxy is Linda. I have reviewed home meds and used all available resources to reconcile the home meds. This patient will be admitted as inpatient and will require greater than 2 midnights of hospital time to treat acute stroke. Time Spent With Patient Critical Care time: I spent a total of [] minutes of critical care time on this patient's care today; this time is exclusive of procedural time.
[2022-08-21 20:12] LABS: TSH w/ Reflex to FT4 3.33 uIU/mL (0.47-4.68)
--- NOTE | 2022-08-21 20:39 | P.TELICUCN_ITS ---
History of Present Illness Consult details IF CAMERA ACTIVATED, patient seen via real-time interactive audiovisual communication: Camera activated Date Patient Seen: 08/21/22 Chief complaint: OPEN RIGHT INGUINAL HERNIA REPAIR W/MESH Reason for consult: Stroke Consent obtained for tele-computer support technician care: Yes Patient Location: ICU Provider location (State): [place] Other participants/roles: RN, Narrative: Patient is a 77M with a PMH of Carotid Artery stenosis s/p L endarterectomy in 2015, HTN, HLD, Hypothyroidism, Lumbar Spinal stenosis s/p repair 07/2022, PVD, Bladder Cancer who underwent R inguinal hernia repair and was found to have new neurologic deficits in PACU. Had R facial droop, RUE weakness, unable to speak. NIH reported as 19. Workup notable for occluded L proximal ICA, MRI with several small L-sided stroke. Tele-Stroke at said ICA not amenable to thrombectomy and not a tPA candidate. Medically managed in ICU with Aspirin and allowing elevated BPs (holding home BP meds). Patient currently reports he feels well, symptoms have resolved. Family at bedside state that he appears at his baseline. [facility] Medical History Bladder cancer Cancer Carotid artery stenosis Chronic kidney disease COPD (chronic obstructive pulmonary disease) Diverticulosis Easy bruisability Enlarged prostate Fragile skin Gout Hernia HTN (hypertension) Hypercholesterolemia Hypothyroid Lumbar spinal stenosis Numbness and tingling Peripheral vascular disease Personal history of colonic polyps Psoriasis Right foot drop Spinal stenosis Vitamin D deficiency Surgical History History of bladder surgery History of colonoscopy History of femoropopliteal bypass History of left-sided carotid endarterectomy History of lumbar spinal fusion (07/25/22) History of lumbar surgery History of lumbar surgery (08/11/18) Hx of appendectomy Hx of hand surgery Hx of tonsillectomy Social History household members: spouse Smoking Status: Current every day smoker alcohol intake: current Current Medications Current Medications Medications: Home Medications tamsulosin 0.4 mg capsule 0.4 mg PO QAM 05/01/18 [History Confirmed 08/21/22] albuterol sulfate 90 mcg/actuation aerosol inhaler (ProAir HFA) 1 puff inhalation Q4-6H PRN Shortness Of Breath 12/18/18 [History Confirmed 08/17/22] amlodipine 5 mg tablet 5 mg PO DAILY 07/04/22 [History Confirmed 08/21/22] fenofibrate 160 mg tablet 160 mg PO DAILY 07/04/22 [History Confirmed 08/21/22] hydralazine 25 mg tablet 25 mg PO BID 07/04/22 [History Confirmed 08/21/22] lisinopril 5 mg tablet 5 mg PO DAILY 07/04/22 [History Confirmed 08/17/22] aspirin 81 mg tablet,delayed release 81 mg PO DAILY 07/16/22 [History Confirmed 08/21/22] acetaminophen 325 mg tablet 650 mg PO Q6HR PRN Pain, Mild (1-3) #120 tabs 07/26/22 [Rx Confirmed 08/21/22] hydrocodone 5 mg-acetaminophen 325 mg tablet 1 tab PO BID PRN pain #7 tabs 08/21/22 [Rx] Visit Medications (administered) Generic Name Dose Route Start Last Admin Trade Name Lino PRN Reason Stop Dose Admin Aspirin 325 mg 08/21/22 18:30 08/21/22 18:57 Aspirin 325 Mg Tablet PO 325 mg DAILY WILBER Administration Lactated Ringer's 1,000 mls @ 42 mls/hr 08/21/22 12:11 08/21/22 16:00 Lactated Ringers IV 08/22/22 11:59 0 mls/hr NOW ONE Infusion Exam Vital Signs (past 8 hours): - 08/21/22 15:41 08/21/22 15:46 08/21/22 15:51 Temperature 97.3 F L 97.6 F Pulse Rate 78 78 70 Respiratory Rate 24 17 21 Blood Pressure 132/59 L 126/65 134/66 Pulse Oximetry 90 L 90 L 92 Oxygen Delivery Method Room Air Room Air Nasal Cannula Oxygen Flow Rate 3 08/21/22 15:56 08/21/22 16:01 08/21/22 16:06 Temperature Pulse Rate 71 74 87 Respiratory Rate 20 13 23 Blood Pressure 128/65 126/57 L 150/65 H Pulse Oximetry 94 95 95 Oxygen Delivery Method Nasal Cannula Nasal Cannula Nasal Cannula Oxygen Flow Rate 3 3 3 08/21/22 16:11 08/21/22 16:16 08/21/22 16:20 Temperature Pulse Rate 74 77 74 Respiratory Rate 23 18 18 Blood Pressure 134/60 129/60 138/58 L Pulse Oximetry 97 95 93 Oxygen Delivery Method Nasal Cannula Nasal Cannula Nasal Cannula Oxygen Flow Rate 3 3 08/21/22 16:51 08/21/22 16:56 08/21/22 17:08 Temperature Pulse Rate 78 95 H 74 Respiratory Rate 21 16 18 Blood Pressure 108/45 L 132/62 131/65 Pulse Oximetry 96 96 95 Oxygen Delivery Method Nasal Cannula Nasal Cannula Nasal Cannula Oxygen Flow Rate 2 2 2 08/21/22 17:18 08/21/22 17:29 08/21/22 17:39 Temperature 97.6 F Pulse Rate 77 75 72 Respiratory Rate 21 18 20 Blood Pressure 137/64 116/59 L 151/66 H Pulse Oximetry 94 95 92 Oxygen Delivery Method Room Air Room Air Oxygen Flow Rate 2 Oxygen Delivery Method Room Air Oxygen Flow Rate 2 Narrative Exam Narrative: Awake, Alert and conversant. No facial droop. RN notes 5/5 in UE and LE. Speech is clear, not slurred. Per RN, R inguinal hernia site has clean/dry dressing. On 2L via NC and satting in mid 90s. No increased WOB. Objective Labs Result Diagrams: 08/21/22 16:45 08/21/22 16:45 Labs: Laboratory Results - last 24 hr 08/21/22 08/21/22 08/21/22 16:45 16:45 16:45 WBC 6.4 RBC 3.57 L Hgb 11.1 L Hct 33.0 L MCV 92.2 MCH 31.1 MCHC 33.7 RDW 14.7 Plt Count 157 Neut % (Auto) 92.7 H Lymph % (Auto) 5.2 L [place] % (Auto) 1.4 L Eos % (Auto) 0.4 L Baso % (Auto) 0.3 Neut # (Auto) 5900 Lymph # (Auto) 300 L [place] # (Auto) 100 Eos # (Auto) 0 Baso # (Auto) 0 PT 12.6 INR 1.1 Sodium 133 L Potassium 4.0 Chloride 104 Carbon Dioxide 24 BUN 23 H Creatinine 1.12 Estimated GFR > 60 BUN/Creatinine Ratio 20.5 Glucose 104 Hemoglobin A1c Calcium 8.3 L Magnesium Total Bilirubin 0.2 AST 23 ALT 17 Alkaline Phosphatase 72 Troponin I < 0.012 Total Protein 5.3 L Albumin 2.8 L Globulin 2.5 Albumin/Globulin Ratio 1.1 Triglycerides Cholesterol LDL Cholesterol, Calc HDL Cholesterol TSH Nasal Screen MRSA (PCR) 08/21/22 08/21/22 08/21/22 16:45 16:45 16:45 WBC RBC Hgb Hct MCV MCH MCHC RDW Plt Count Neut % (Auto) Lymph % (Auto) [place] % (Auto) Eos % (Auto) Baso % (Auto) Neut # (Auto) Lymph # (Auto) [place] # (Auto) Eos # (Auto) Baso # (Auto) PT INR Sodium Potassium Chloride Carbon Dioxide BUN Creatinine Estimated GFR BUN/Creatinine Ratio Glucose Hemoglobin A1c 5.3 Calcium Magnesium 1.8 Total Bilirubin AST ALT Alkaline Phosphatase Troponin I Total Protein Albumin Globulin Albumin/Globulin Ratio Triglycerides Cholesterol LDL Cholesterol, Calc HDL Cholesterol TSH 3.33 Nasal Screen MRSA (PCR) 08/21/22 08/21/22 16:45 17:43 WBC RBC Hgb Hct MCV MCH MCHC RDW Plt Count Neut % (Auto) Lymph % (Auto) [place] % (Auto) Eos % (Auto) Baso % (Auto) Neut # (Auto) Lymph # (Auto) [place] # (Auto) Eos # (Auto) Baso # (Auto) PT INR Sodium Potassium Chloride Carbon Dioxide BUN Creatinine Estimated GFR BUN/Creatinine Ratio Glucose Hemoglobin A1c Calcium Magnesium Total Bilirubin AST ALT Alkaline Phosphatase Troponin I Total Protein Albumin Globulin Albumin/Globulin Ratio Triglycerides 67 Cholesterol 119 L LDL Cholesterol, Calc 55 HDL Cholesterol 51 TSH Nasal Screen MRSA (PCR) Negative for mrsa Assessment & Plan Assessment and plan (1) Reducible right inguinal hernia: Status: Acute Plan # Stroke, Ischemic. Symptoms have now resolved. TIA? Likely rigoberto-op hypotension in setting of L iCA occlusion led to stroke/symptoms. Not a TPA or thrombectomy candidate per Tele-Stroke # L ICA Occlusion - Telestroke from involved - ASA 325mg, Lipitor 80 QHS - PT/OT - TTE, Carotid US for further workup - Continue Neuro checks overnight - Hold home BP meds, allowing elevated BPs overnight - Given normal speech, likely OK for PO meds/ice chips/water # Hypoxemia. Patient with mild O2 requirements (2L NC, satting in mid 90s) - likely due to atelectasis from surgery v less likely aspiration from stroke? - If persistent, would obtain CXR tomorrow - If coughing with meds/water, would recommend speech eval - No indication for aspiration pneumonia coverage at this time # s/p R Inguinal Hernia Repair - Monitor dressings - Management per Surgical team mIVF with LR ongoing VTE PPx with Lovenox SUP: none, likely advance to full diet tomorrow PIVs Time Spent With Patient Critical Care time: I spent a total of [] minutes of critical care time on this patient's care today; this time is exclusive of procedural time.
[2022-08-21] MEDS: ATORVASTATIN 20 MG TABLET 80 MG PO (21:55)
[2022-08-22] VITALS (11 sets, daily range): BP systolic 125–161; BP diastolic 58–90; PULSE 63–96; RESP 15–31; TEMP 36.4–37.1; O2SAT 95–97
--- NOTE | 2022-08-22 02:22 | PC.NURSE ---
Patient alert and oriented x4. Patient has intermittent expressive aphasia. Patient was aware that he wasn't articulating what he wanted to say. Patient using call light appropriately to request assistance with use of urinal. Patient able to swallow H2O and medications without difficulty. Lungs with crackles to bases, greater to L base. O2 at 2L sats 94-96%. Patient has an intermittent cough, but is not associated with drinking fluids. Patient reports that he coughs frequently at home, as well. R groin incision with spot of serosanguinous drainage, and no increase over last 7 hours. Patient continues to deny pain at incisional site. Expressive aphasia has resolved at this time. No facial droop noted and extremities with equal strength. Patient did exhibit some listing to the right side when sitting on the edge of the bed and attempting to use the urinal.
[2022-08-22 04:57] LABS: Add Manual Diff / Slide Review NO; Basophils Absolute Auto 0 /uL (0-100); Basophils Percent Auto 0.2 % (0-2); Eosinophils Absolute Auto 0 /uL (0-450); Hematocrit 35.4 % (41-53); Hemoglobin 11.8 g/dL (13.5-17.5); Lymphocytes Absolute Auto 400 /uL (1100-4500); Lymphocytes Percent Auto 5.3 % (25-40); Mean Corpuscular HGB Conc 33.3 % (30-36); Mean Corpuscular Hemoglobin 30.9 PG (26-34); Mean Corpuscular Volume 92.6 fL (80-100); Monocytes Absolute Auto 300 /uL (0-900); Monocytes Percent Auto 3.5 % (3-14); Neutrophils Absolute Auto 7400 /uL (1500-7000); Platelet Count 176 X10^3/uL (150-400); Red Blood Cell Count 3.82 X10^6/uL (4.5-5.9); Red Cell Distribution Width 14.6 % (11.6-14.8); White Blood Cell Count 8.2 X10^3/uL (4.5-11.0)
[2022-08-22 05:01] LABS: BUN Creatinine Ratio 24.8 (6-22); Blood Urea Nitrogen 25 mg/dL (9-20); Calcium 8.7 mg/dL (8.4-10.2); Carbon Dioxide 20 mmol/L (22-32); Chloride 105 mmol/L (98-107); Estimated Glomerular Filt Rate > 60 mL/min (>60); Glucose 120 mg/dL (80-110); HEMOLYSIS < 15 (0-50); Potassium 4.2 mmol/L (3.4-5.1); Sodium 135 mmol/L (137-145)
--- NOTE | 2022-08-22 07:33 | PM.PN.1 ---
Exam Vital Signs (past 8 hours): - 08/22/22 00:00 08/21/22 23:59 08/21/22 23:59 Temperature Pulse Rate 65 71 Respiratory Rate 24 24 Blood Pressure 136/66 132/61 Pulse Oximetry 95 95 Oxygen Delivery Method Oxygen Flow Rate 2 08/22/22 00:00 08/22/22 00:00 08/22/22 01:00 Temperature 97.6 F Pulse Rate 75 Respiratory Rate 31 H Blood Pressure 136/66 126/58 L Pulse Oximetry 95 Oxygen Delivery Method Oxygen Flow Rate 08/22/22 01:00 08/22/22 02:00 08/22/22 02:00 Temperature Pulse Rate 66 96 H Respiratory Rate 16 23 Blood Pressure 161/90 H Pulse Oximetry 96 Oxygen Delivery Method Oxygen Flow Rate 2 08/22/22 03:00 08/22/22 03:00 08/22/22 03:00 Temperature Pulse Rate 64 Respiratory Rate 15 Blood Pressure 125/58 L Pulse Oximetry 95 Oxygen Delivery Method Nasal Cannula Oxygen Flow Rate 08/22/22 04:00 08/22/22 04:00 08/22/22 05:00 Temperature 97.7 F Pulse Rate 68 Respiratory Rate 21 Blood Pressure 130/62 146/67 H Pulse Oximetry 95 Oxygen Delivery Method Oxygen Flow Rate 2 08/22/22 05:00 08/22/22 06:00 08/22/22 06:00 Temperature Pulse Rate 65 69 Respiratory Rate 18 18 Blood Pressure 140/65 Pulse Oximetry 96 95 Oxygen Delivery Method Oxygen Flow Rate Oxygen Delivery Method Nasal Cannula Oxygen Flow Rate 2 Narrative Exam Narrative: GEN: Appears bewildered, unable to speak HEENT: moist mucous membranes, PERRL NECK: trachea midline, no JVD CV: regular rate and rhythm, no murmurs PULM: clear bilaterally ABD: soft, nontender, nondistended, no organomegaly EXT: warm and well perfused with no edema NEURO: No move right upper extremity, strength intact in left upper extremity, right facial droop present, aphasia present, wiggling toes of both feet Objective Labs Result Diagrams: 08/22/22 04:03 08/22/22 04:03 Labs: Laboratory Results - last 24 hr 08/21/22 08/21/22 08/21/22 16:45 16:45 16:45 WBC 6.4 RBC 3.57 L Hgb 11.1 L Hct 33.0 L MCV 92.2 MCH 31.1 MCHC 33.7 RDW 14.7 Plt Count 157 Neut % (Auto) 92.7 H Lymph % (Auto) 5.2 L [place] % (Auto) 1.4 L Eos % (Auto) 0.4 L Baso % (Auto) 0.3 Neut # (Auto) 5900 Lymph # (Auto) 300 L [place] # (Auto) 100 Eos # (Auto) 0 Baso # (Auto) 0 PT 12.6 INR 1.1 Sodium 133 L Potassium 4.0 Chloride 104 Carbon Dioxide 24 BUN 23 H Creatinine 1.12 Estimated GFR > 60 BUN/Creatinine Ratio 20.5 Glucose 104 Hemoglobin A1c Calcium 8.3 L Magnesium Total Bilirubin 0.2 AST 23 ALT 17 Alkaline Phosphatase 72 Troponin I < 0.012 Total Protein 5.3 L Albumin 2.8 L Globulin 2.5 Albumin/Globulin Ratio 1.1 Triglycerides Cholesterol LDL Cholesterol, Calc HDL Cholesterol TSH Nasal Screen MRSA (PCR) 08/21/22 08/21/22 08/21/22 16:45 16:45 16:45 WBC RBC Hgb Hct MCV MCH MCHC RDW Plt Count Neut % (Auto) Lymph % (Auto) [place] % (Auto) Eos % (Auto) Baso % (Auto) Neut # (Auto) Lymph # (Auto) [place] # (Auto) Eos # (Auto) Baso # (Auto) PT INR Sodium Potassium Chloride Carbon Dioxide BUN Creatinine Estimated GFR BUN/Creatinine Ratio Glucose Hemoglobin A1c 5.3 Calcium Magnesium 1.8 Total Bilirubin AST ALT Alkaline Phosphatase Troponin I Total Protein Albumin Globulin Albumin/Globulin Ratio Triglycerides Cholesterol LDL Cholesterol, Calc HDL Cholesterol TSH 3.33 Nasal Screen MRSA (PCR) 08/21/22 08/21/22 08/22/22 16:45 17:43 04:03 WBC 8.2 RBC 3.82 L Hgb 11.8 L Hct 35.4 L MCV 92.6 MCH 30.9 MCHC 33.3 RDW 14.6 Plt Count 176 Neut % (Auto) 91.0 H Lymph % (Auto) 5.3 L [place] % (Auto) 3.5 Eos % (Auto) 0.0 L Baso % (Auto) 0.2 Neut # (Auto) 7400 H Lymph # (Auto) 400 L [place] # (Auto) 300 Eos # (Auto) 0 Baso # (Auto) 0 PT INR Sodium Potassium Chloride Carbon Dioxide BUN Creatinine Estimated GFR BUN/Creatinine Ratio Glucose Hemoglobin A1c Calcium Magnesium Total Bilirubin AST ALT Alkaline Phosphatase Troponin I Total Protein Albumin Globulin Albumin/Globulin Ratio Triglycerides 67 Cholesterol 119 L LDL Cholesterol, Calc 55 HDL Cholesterol 51 TSH Nasal Screen MRSA (PCR) Negative for mrsa 08/22/22 04:03 WBC RBC Hgb Hct MCV MCH MCHC RDW Plt Count Neut % (Auto) Lymph % (Auto) [place] % (Auto) Eos % (Auto) Baso % (Auto) Neut # (Auto) Lymph # (Auto) [place] # (Auto) Eos # (Auto) Baso # (Auto) PT INR Sodium 135 L Potassium 4.2 Chloride 105 Carbon Dioxide 20 L BUN 25 H Creatinine 1.01 Estimated GFR > 60 BUN/Creatinine Ratio 24.8 H Glucose 120 H Hemoglobin A1c Calcium 8.7 Magnesium Total Bilirubin AST ALT Alkaline Phosphatase Troponin I Total Protein Albumin Globulin Albumin/Globulin Ratio Triglycerides Cholesterol LDL Cholesterol, Calc HDL Cholesterol TSH Nasal Screen MRSA (PCR) PFSH Medical History Bladder cancer Cancer Carotid artery stenosis Chronic kidney disease COPD (chronic obstructive pulmonary disease) Diverticulosis Easy bruisability Enlarged prostate Fragile skin Gout Hernia HTN (hypertension) Hypercholesterolemia Hypothyroid Lumbar spinal stenosis Numbness and tingling Peripheral vascular disease Personal history of colonic polyps Psoriasis Right foot drop Spinal stenosis Vitamin D deficiency Surgical History History of bladder surgery History of colonoscopy History of femoropopliteal bypass History of left-sided carotid endarterectomy History of lumbar spinal fusion (07/25/22) History of lumbar surgery History of lumbar surgery (08/11/18) Hx of appendectomy Hx of hand surgery Hx of tonsillectomy Social History household members: spouse Smoking Status: Current every day smoker alcohol intake: current Assessment & Plan Assessment & Plan narrative: # acute left stroke -presented with acute right-sided deficits following hernia repair surgery -MRI head revealed 3 small left-sided strokes, CTA head with occlusion of left proximal common carotid artery not amenable to thrombectomy per tele stroke -not tPA candidate secondary to spinal surgery 1 month ago -medical management only with aspirin 325 mg daily -start Lipitor 80 mg nightly -obtain echo -obtain bilateral carotid ultrasound -telemetry -tele stroke recommended keeping blood pressure up and giving 500 NS bolus, hold home blood pressure meds -PT/OT # hyponatremia, mild -NS fluids # right inguinal hernia repair with mesh, recs per Dr. Ellsworth general surgery # hypertension # hyperlipidemia # lumbar spinal stenosis s/p lumbar surgery # hypothyroidism Code status is full code. COVID negative. DVT prophylaxis with Lovenox. Proxy is Linda. Medicine will sign off today. Thank you for allowing us to participate in the care of this patient. Should you have any further questions, do not hesitate to speak with us directly or call us. Time Spent With Patient Critical Care time: I spent a total of [] minutes of critical care time on this patient's care today; this time is exclusive of procedural time.
--- NOTE | 2022-08-22 07:44 | DI.RAD.S_ITS ---
PROCEDURE: XR CHEST 1V INDICATIONS: hypoxia TECHNIQUE: One view of the chest was acquired. COMPARISON: [facility], CT, CT ANGIO HEAD AND NECK, 08/21/2022, 16:39. [facility], CR, XR CHEST 2V, 02/21/2022, 11:45. FINDINGS: Surgical changes and devices: None. Lungs and pleura: Lungs appear clear. Emphysematous change. No pleural effusions or pneumothorax. Mediastinum: Mediastinal contours appear normal. Heart size is normal. Bones and chest wall: No suspicious bony lesions. Overlying soft tissues appear unremarkable. IMPRESSION: No acute cardiopulmonary abnormality. Dictated by: Maury Valdovinos M.D. on 08/22/2022 at 8:39 Approved by: Maury Valdovinos M.D. on 08/22/2022 at 8:40
--- NOTE | 2022-08-22 08:00 | DI.US.S_ITS ---
PROCEDURE: US CAROTID DOPPLER BI INDICATIONS: NICANOR TECHNIQUE: Color and pulse Doppler interrogation was performed of both carotid systems, with image documentation and velocity measurements. COMPARISON: [facility], MR, MR HEAD/BRAIN WO CON, 08/21/2022, 18:11. [facility], CT, CT ANGIO HEAD AND NECK, 08/21/2022, 16:39. FINDINGS: Stenosis calculations are based on SRU (Society of Radiologists in Ultrasound) criteria. Right side: Brachial blood pressure: 138/68 mm Hg. Common carotid artery peak systolic velocity: 78 cm/sec. Internal carotid artery peak systolic velocity: 47 cm/sec. Internal carotid artery end diastolic velocity: 9 cm/sec. External carotid artery peak systolic velocity: 131 cm/sec. ICA/CCA peak systolic ratio: 0.6 Colon scale imaging description: Mild atherosclerotic change is seen. Percent internal carotid artery stenosis: Less than 50% by velocity criteria Vertebral artery: Flow direction is antegrade. Left side: Brachial blood pressure: 141/70 mm Hg. Common carotid artery peak systolic velocity: 68 cm/sec. Internal carotid artery peak systolic velocity: Occluded Internal carotid artery end diastolic velocity: Occluded External carotid artery peak systolic velocity: 94 cm/sec. ICA/CCA peak systolic ratio: Not applicable Colon scale imaging description: There is an occluded left internal carotid artery. Percent internal carotid artery stenosis: 100% Vertebral artery: Flow direction is antegrade. IMPRESSION: As demonstrated on the prior CT angiogram, there is complete occlusion of the left internal carotid artery. Dictated by: Henrik Ponce M.D. on 08/22/2022 at 8:15 Approved by: Henrik Ponce M.D. on 08/22/2022 at 8:17
[2022-08-22] MEDS: ASPIRIN 325 MG TABLET PO (08:35)
[2022-08-22] MEDS: ENOXAPARIN 40 MG/0.4 ML SYRINGE SUBCUT (08:35)
[2022-08-22] MEDS: SODIUM CHLORIDE 0.9% FLUSH 10 ML IV (08:36)
[2022-08-22] MEDS: TAMSULOSIN 0.4 MG CAPSULE PO (09:21)
--- NOTE | 2022-08-22 11:21 | SLP.IPNOTE ---
Orders received. Saw pt in his room with his daughter. Pt was sitting in chair and was resonsive and alert. OM screen indicated astrucutres/function WNL. Pt reported no difficulty with swallow, speech or language (receptive/expressive). Pt did not want formal assessment. Will discharge from [facility]
--- NOTE | 2022-08-22 12:00 | PT.IIE ---
Current Diagnoses Unilateral inguinal hernia, without obstruction or gangrene, not specified as recurrent (08/21/22) Surgery Performed Operation Date: 08/21/22 13:15 Actual Procedures p Hernia Repair - Inguinal w/mesh(Right) - Dat Ellsworth MD Surgical History (Last Reviewed 08/21/22 @ 20:44 by Toma Ferris) History of bladder surgery History of colonoscopy History of femoropopliteal bypass History of left-sided carotid endarterectomy History of lumbar spinal fusion (07/25/22) History of lumbar surgery History of lumbar surgery (08/11/18) Hx of appendectomy Hx of hand surgery Hx of tonsillectomy Medical History (Last Reviewed 08/21/22 @ 20:44 by Toma Ferris) Bladder cancer Cancer Carotid artery stenosis Chronic kidney disease COPD (chronic obstructive pulmonary disease) Diverticulosis Easy bruisability Enlarged prostate Fragile skin Gout Hernia HTN (hypertension) Hypercholesterolemia Hypothyroid Lumbar spinal stenosis Numbness and tingling Peripheral vascular disease Personal history of colonic polyps Psoriasis Right foot drop Spinal stenosis Vitamin D deficiency Physical Therapy Inpatient Evaluation/Re-Eval M1 PT/OT-IP Prior Functional Status Start: 08/22/22 08:41 Freq: NEEDED Status: Active Protocol: Document 08/22/22 12:00 AW (Rec: 08/22/22 12:39 AW [id number]) Medical Review Prior Functional Status Medical History Reviewed Yes Communication WNL. Pt is an effective verbal communicator. Mobility and Gait Independent without AD. Occasionally uses a SPC for balance. Pt has chronic right foot drop but he compensates well. Activities of Daily Living and IADL's Independent. Pt does drive. Prior Functional Level (Other details) Pt had his third lumbar surgery last month to address radiating pain to his hip which he states has resolved. PMH includes L carotid endarterectomy (2016) and three lumbar surgeries. Per chart notes, he is a daily smoker. Social History Household Members spouse Living Arrangements House Number of Floors (Floors) One Floor Number of Stairs To Enter/Railing? 3 DARA with narrow B rails. 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 He lives in [place] with his spouse, Linda. M2 PT-IP Current Condition Start: 08/22/22 08:41 Freq: NEEDED Status: Active Protocol: Document 08/22/22 12:00 AW (Rec: 08/22/22 12:39 AW [id number]) Physical Therapy Current Condition Current Condition Evaluation Date 08/22/22 Treatment Diagnosis acute L CVA; impaired balance and gait Onset Date 08/21/22 M3 PT-IP Subjective Start: 08/22/22 08:41 Freq: NEEDED Status: Active Protocol: Document 08/22/22 12:00 AW (Rec: 08/22/22 12:39 AW [id number]) Subjective Physical Therapy Visit Type Type Initial Evaluation Visit Start Time 11:38 Visit Stop Time 12:00 Total Visit Minutes 22 Notes Pt had R inguinal hernia repair yesterday. Code stroke was called in PACU when pt was noted to have R facial droop and expressive aphasia. MRI revealed multifocal small left hemispheric infarcts ( internal capsule and insula) Physical Therapy Visit Comments Patient Comments Pt feels he is a little wobbly today but pretty close to baseline for balance. Therapy Pain Assessment Pain When Pain Assessed At Rest Pain Present Pain Present Denied Pain M4 PT-IP Mobility and Gait Start: 08/22/22 08:41 Freq: NEEDED Status: Active Protocol: Document 08/22/22 12:00 AW (Rec: 08/22/22 12:39 AW [id number]) PT-Bed Mobility Assessment Supine to Sit Supine to Sit Independent Sit to Supine Sit to Supine Independent PT-Transfer Assessment Sit to and From Stand Sit to and from Stand Independent Equipment Transfer Assistive Device None,Gait Belt Orthotic/Prosthetic Devices or Brace: No Transfers Transfer Destination Chair Transfer Technique ambulated without AD Transfer Ability Level of Assist Standby Assistance Comments Mobility Comments Pt was sitting up on the chair as PT arrived. BP 150/70 HR 75. Pt stood and walked around the room with notable right foot drop which is chronic. He walked in the halls and completed Dynamic Gait Index ( see notes below). On return to the room, he completed sit<> supine IND. Pt returned to the chair and was left with call light in reach. Gait Assessment Gait Gait Assistance Required: Standby Assistance Distance (Feet) 300 Assistive Devices Assistive Device None,Gait Belt Orthotic/Prosthetic Devices or Brace: No Gait Deviations General Gait Pattern Antalgic,Decreased Feet Clearance Factors Limiting Gait Function Factors Limiting Gait Function Decreased Sensation,Decreased Strength,Incoordination, Limited Range of Motion,Poor Balance Comments Gait Comments Pt completed DGI with score of 17/24. Single points deducted for level surface, horizontal head turns, pivot turn, step over, and steps. Two points deducted for head nods. Gait was notable for chronic right foot drop and less steady in turns. Stair Climbing Assessment Evaluation Level of Assist On Stairs Standby Assistance Devices Stair Climbing Assistive Devices Left Railing,Right Railing Technique/Endurance Stair Climbing Direction Ascend and Descend Stair Climbing Technique Step Over Step Number of Steps Climbed 10 Query Text: Stair Climbing Set # Repetitions (reps) 1 PT-Balance Assessment Sitting Balance and Reactions Static Sitting Balance Ability Normal Dynamic Sitting Balance Ability Normal Standing Balance and Reactions Static Standing Balance Ability Good Dynamic Standing Balance Ability Fair Device Used none Balance Tests Romberg increased ankle sway in NBOS with EC Functional Assessments Functional Tests Dynamic Gait Index M5 PT-IP Objective Assessments Start: 08/22/22 08:41 Freq: NEEDED Status: Active Protocol: Document 08/22/22 12:00 AW (Rec: 08/22/22 12:39 AW [id number]) Orientation Orientation/Cognition Level of Alertness Alert Orientation Name,Day of Week,Place, Situation Language Function Ability No Deficits Noted Safety Awareness Understands Safety Issues Comments No aphasia noted during this encounter. Pt was able to recall 3/3 words (apple, table , larisa) after 10 minute delay . Pt did mis-report year of alf but corrected when PT inquired further. Gross Range of Motion Lower Extremity ROM Assessment Right Impaired Impairments lacks R ankle DF Strength Lower Extremity Strength Hip 4+/5 Knee 5/5 Ankle R 3+/5; L 4+/5 Coordination Assessment Assessment Finger to Nose Test Minimal Impairment Foot Tapping Test Activity Impossible Heel on Martell Test Minimal Impairment Coordination Comments Slight lag using RUE for finger to nose but pt states chronic R hand tremor as well as Depuytrens interfere with performance. Pt believes Depuytrens also responsible for slight pronator drift RUE. R foot sensation disturbance may account for performance on heel to martell. Sensation Assessment Sensation Gross Sensation Right LE Impaired Light Touch Impaired Proprioception (Position) Impaired Comments Sensation Comments R foot with chronic numbness. Dorsal surface is most affected. Muscle Tone Muscle Tone WNL Yes M6 PT-IP Treatment Start: 08/22/22 08:41 Freq: NEEDED Status: Active Protocol: Document 08/22/22 12:00 AW (Rec: 08/22/22 12:39 AW [id number]) Physical Therapy Treatment Education Education Provided Safety Other Treatments Other Treatment Performed Discussed recommendation for use of cane when feeling unsteady. Also recommended outpatient PT to address dynamic balance deficits. M7 PT-IP Assessment and Plan Start: 08/22/22 08:41 Freq: NEEDED Status: Active Protocol: Document 08/22/22 12:00 AW (Rec: 08/22/22 12:39 AW [id number]) PT Summary Assessment and Plan Potential Rehabilitation Potential Good Status of Condition at Evaluation Evolving Summary Impairments ROM,Strength,Balance,Sensation ,Gait Assessment Summary Daphnie is a 77 yo man who was admitted yesterday for right inguinal hernia repair. Code stroke was called in PACU as pt was noted to have R facial droop and expressive aphasia. MRI confirmed multifocal small left hemispheric infarcts. 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 PLOF: Independent mobility and ADL management. Pt reports chronic right foot sensation disturbance and drop foot. He denies falls in the past 3 years. CLOF: Pt scores 17/24 on Dynamic Gait Index and appears to have some coordination deficits with right upper and lower extremities. Confounding factors include recent lumbar surgery, Depuytrens contracture, and chronic right foot drop. It is possible pt is presenting at or near his functional baseline but would certainly benefit from outpatient PT regardless to address dynamic balance deficits. Discussed this recommendation with pt who agrees to seek referral from his PCP Goals Bed Mobility Goal Independent Transfer Goal Independent Gait Goal Independent Gait Distance 500 Other Goals - up/down flight of stairs with B rails IND Frequency of Treatment Frequency Of Treatment Once a Day Treatment Plan Physical Therapy Treatment Plan Transfer Training,Gait Training,Therapeutic Exercise, Balance Retraining,Discharge Planning,Neuromuscular Re-ed, Coordination Retraining Other Recommendations and Next Treatment dynamic balance interventions Focus Recommendations To Nursing Amount of Assist Needed Independent,Standby Assistance Discharge Recommendations PT Discharge Recommendations Home,Outpatient PT Transportation Needs at Discharge Private Vehicle
--- NOTE | 2022-08-22 12:21 | PM.DS.1 ---
History of Present Illness History of Present Illness Chief complaint: OPEN RIGHT INGUINAL HERNIA REPAIR W/MESH Narrative: Abram is here for his right inguinal hernia repair. He had his back surgery last month with good result. No other changes to his health. Discharge Providers Provider Date of admission: 08/21/22 21:24 Discharge Date: 08/22/22 Primary care physician: Li Jimenez PA-C Consults: 08/21/22 17:35 Consult to Occupational Therapy Evaluate & Treat Comment: Physician Instructions: Evaluate and treat 08/21/22 17:36 Consult to Discharge Planning Routine Comment: Consult to Physical Therapy Evaluate & Treat Comment: Physician Instructions: Evaluate and Treat Consult to Speech Therapy Evaluate & Treat Comment: Physician Instructions: Evaluate and treat Discharge provider: Dat Ellsworth MD Summary Hospital Course Discharge Diagnosis: Stroke Hospital Course: The patient underwent an elective right inguinal hernia repair on 08/21/2022. In the recovery room he was noted to have some facial droop and aphasia. He underwent a stroke workup and was found to have 3 small left hemispheric infarcts and occlusion of left internal carotid artery. His stroke-like symptoms improved significantly overnight and was discharged home on postop day 1 with instructions to follow up with his primary care provider for further evaluation. Exam Vital Signs (past 8 hours): - 08/22/22 05:00 08/22/22 05:00 08/22/22 06:00 Temperature Pulse Rate 65 Respiratory Rate 18 Blood Pressure 146/67 H 140/65 Pulse Oximetry 96 Oxygen Delivery Method Oxygen Flow Rate 08/22/22 06:00 08/22/22 07:00 08/22/22 07:00 Temperature Pulse Rate 69 63 Respiratory Rate 18 18 Blood Pressure 148/72 H Pulse Oximetry 95 97 Oxygen Delivery Method Oxygen Flow Rate 08/22/22 07:31 08/22/22 07:31 08/22/22 07:34 Temperature Pulse Rate 73 72 Respiratory Rate 28 H 22 Blood Pressure 138/68 Pulse Oximetry 95 96 Oxygen Delivery Method Oxygen Flow Rate 08/22/22 07:34 08/22/22 08:00 08/22/22 07:00 Temperature 98.8 F Pulse Rate 84 Respiratory Rate 21 Blood Pressure 141/70 H 149/67 H Pulse Oximetry 96 Oxygen Delivery Method Room Air Oxygen Flow Rate 2 Oxygen Delivery Method Room Air Oxygen Flow Rate 2 Objective Labs Result Diagrams: 08/22/22 04:03 08/22/22 04:03 Labs: Laboratory Results - last 24 hr 08/21/22 08/21/22 08/21/22 16:45 16:45 16:45 WBC 6.4 RBC 3.57 L Hgb 11.1 L Hct 33.0 L MCV 92.2 MCH 31.1 MCHC 33.7 RDW 14.7 Plt Count 157 Neut % (Auto) 92.7 H Lymph % (Auto) 5.2 L Cannon % (Auto) 1.4 L Eos % (Auto) 0.4 L Baso % (Auto) 0.3 Neut # (Auto) 5900 Lymph # (Auto) 300 L Cannon # (Auto) 100 Eos # (Auto) 0 Baso # (Auto) 0 PT 12.6 INR 1.1 Sodium 133 L Potassium 4.0 Chloride 104 Carbon Dioxide 24 BUN 23 H Creatinine 1.12 Estimated GFR > 60 BUN/Creatinine Ratio 20.5 Glucose 104 Hemoglobin A1c Calcium 8.3 L Magnesium Total Bilirubin 0.2 AST 23 ALT 17 Alkaline Phosphatase 72 Troponin I < 0.012 Total Protein 5.3 L Albumin 2.8 L Globulin 2.5 Albumin/Globulin Ratio 1.1 Triglycerides Cholesterol LDL Cholesterol, Calc HDL Cholesterol TSH Nasal Screen MRSA (PCR) 08/21/22 08/21/22 08/21/22 16:45 16:45 16:45 WBC RBC Hgb Hct MCV MCH MCHC RDW Plt Count Neut % (Auto) Lymph % (Auto) Cannon % (Auto) Eos % (Auto) Baso % (Auto) Neut # (Auto) Lymph # (Auto) Cannon # (Auto) Eos # (Auto) Baso # (Auto) PT INR Sodium Potassium Chloride Carbon Dioxide BUN Creatinine Estimated GFR BUN/Creatinine Ratio Glucose Hemoglobin A1c 5.3 Calcium Magnesium 1.8 Total Bilirubin AST ALT Alkaline Phosphatase Troponin I Total Protein Albumin Globulin Albumin/Globulin Ratio Triglycerides Cholesterol LDL Cholesterol, Calc HDL Cholesterol TSH 3.33 Nasal Screen MRSA (PCR) 08/21/22 08/21/22 08/22/22 16:45 17:43 04:03 WBC 8.2 RBC 3.82 L Hgb 11.8 L Hct 35.4 L MCV 92.6 MCH 30.9 MCHC 33.3 RDW 14.6 Plt Count 176 Neut % (Auto) 91.0 H Lymph % (Auto) 5.3 L Cannon % (Auto) 3.5 Eos % (Auto) 0.0 L Baso % (Auto) 0.2 Neut # (Auto) 7400 H Lymph # (Auto) 400 L Cannon # (Auto) 300 Eos # (Auto) 0 Baso # (Auto) 0 PT INR Sodium Potassium Chloride Carbon Dioxide BUN Creatinine Estimated GFR BUN/Creatinine Ratio Glucose Hemoglobin A1c Calcium Magnesium Total Bilirubin AST ALT Alkaline Phosphatase Troponin I Total Protein Albumin Globulin Albumin/Globulin Ratio Triglycerides 67 Cholesterol 119 L LDL Cholesterol, Calc 55 HDL Cholesterol 51 TSH Nasal Screen MRSA (PCR) Negative for mrsa 08/22/22 04:03 WBC RBC Hgb Hct MCV MCH MCHC RDW Plt Count Neut % (Auto) Lymph % (Auto) Cannon % (Auto) Eos % (Auto) Baso % (Auto) Neut # (Auto) Lymph # (Auto) Cannon # (Auto) Eos # (Auto) Baso # (Auto) PT INR Sodium 135 L Potassium 4.2 Chloride 105 Carbon Dioxide 20 L BUN 25 H Creatinine 1.01 Estimated GFR > 60 BUN/Creatinine Ratio 24.8 H Glucose 120 H Hemoglobin A1c Calcium 8.7 Magnesium Total Bilirubin AST ALT Alkaline Phosphatase Troponin I Total Protein Albumin Globulin Albumin/Globulin Ratio Triglycerides Cholesterol LDL Cholesterol, Calc HDL Cholesterol TSH Nasal Screen MRSA (PCR) PFSH Medical History Bladder cancer Cancer Carotid artery stenosis Chronic kidney disease COPD (chronic obstructive pulmonary disease) Diverticulosis Easy bruisability Enlarged prostate Fragile skin Gout Hernia HTN (hypertension) Hypercholesterolemia Hypothyroid Lumbar spinal stenosis Numbness and tingling Peripheral vascular disease Personal history of colonic polyps Psoriasis Right foot drop Spinal stenosis Vitamin D deficiency Surgical History History of bladder surgery History of colonoscopy History of femoropopliteal bypass History of left-sided carotid endarterectomy History of lumbar spinal fusion (07/25/22) History of lumbar surgery History of lumbar surgery (08/11/18) Hx of appendectomy Hx of hand surgery Hx of tonsillectomy Social History household members: spouse Smoking Status: Current every day smoker alcohol intake: current Discharge Plan Discharge Plan Patient Disposition: Home Provider Discharge Comment: Follow up with your primary care provider regarding your recent stroke. No lifting greater than 20 lb for 2 weeks. Okay to remove the outer dressing and shower after 24 hours. Leave the Steri-Strips on until they start to peel off in 1-2 weeks. Discharge orders & Medications Prescriptions: New hydrocodone-acetaminophen 5-325 mg tablet 1 tab PO BID PRN (Reason: pain) Qty: 7 0RF Continued lisinopril 5 mg tablet 5 mg PO DAILY hydralazine 25 mg tablet 25 mg PO BID amlodipine 5 mg tablet 5 mg PO DAILY fenofibrate 160 mg tablet 160 mg PO DAILY tamsulosin 0.4 mg Capsule,Extended Release 24hr 0.4 mg PO QAM albuterol sulfate [ProAir HFA] 90 mcg/actuation Hfa Aerosol Inhaler 1 puff INHALATION Q4-6H PRN (Reason: Shortness Of Breath) aspirin 81 mg Tablet,Delayed Release (Dr/Ec) 81 mg PO DAILY acetaminophen 325 mg Tablet 650 mg PO Q6HR PRN (Reason: Pain, Mild (1-3)) Qty: 120 1RF Follow up/Referrals: Li Jimenez, PAAlexaC [Primary Care Provider] - Visit Report/Discharge Packet Instructions: DI for Groin Hernia, DI for Hernia Repair Discharge Data Primary Care Provider: Li Jimenez
--- NOTE | 2022-08-22 12:36 | CM.IDA ---
Initial DCP Assessment Patient is 77 y/o male who presents to due to Right Hernia repair with Dr. Ellsworth, after surgery patient had TIA in PACU. Patient had back surgery last month as well. Patient's PCP is Li Jimenez PA-C , Patient has Medicare and AARP. Patient has hx of Carotid Artery Stenosis, Hypertension, Hyperlipidemia, Hypothyroidism, lumbar spinal stenosis, COPD and bladder cancer. Post TIA, patient was seen by Speech Therapy and it was reported that patient presents as A/O and responsive, sitting in chair with no reported difficulties. UNIT MANAGER CONVENIENCE STORES enters room to meet with patient, patient presents as A/Ox4. Patient endorses he feels fine. Patient endorses and acknowledges that was the first time he's experienced a stroke, patient endorses hx of surgeries. Patient endorses that he is independent with ADLs. Patient endorses he has FWW and cane at home, but has not needed them recently. Patient endorses he resides at home with his with Maritza Patrick, and she can assist with ADLs as needed. Patient has f/u appt with Dr. Ellsworth on 09/03/22, patient endorses he will f/u with Dr. Lauren and PCP as well. Patient denies current DCP needs and states he is hopeful he will d/c to home today. UNIT MANAGER CONVENIENCE STORES reviews this with hospitalist Dr. Mason and he reports patient is medically clear for d/c today. Plan: Patient to d/c to home today upon medical clearance. Patient endorses his can pick patient up upon d/c to home. ASHOK Dickson Discharge Planning/Care Management Discharge Planning Assessment Assigned Photoradio Operator ASHOK Machuca Advance Directives? Yes Advance Directives on File No History Provided By Patient,Medical Record Has Patient been admitted in last 30 Yes days? Comment TLIF surgery on 07/25/22, d/c on 07/26/22 Prior Living Arrangements House Household Members spouse Type of transporation used prior to Drives own vehicle admit Independent with ADL's Yes Is patient alert and oriented? Yes Discharge Plan Home Transportation Arrangement Family to provide transport. Referrals Initiated None needed Please Provide Date Initial DC 08/22/22 Assessment Was Performed
--- NOTE | 2022-08-22 13:12 | OT.IP.EVAL ---
Current Diagnoses Unilateral inguinal hernia, without obstruction or gangrene, not specified as recurrent (08/21/22) Surgery Performed Operation Date: 08/21/22 13:15 Actual Procedures p Hernia Repair - Inguinal w/mesh(Right) - Dat Ellsworth MD Past Medical History (Last Reviewed 08/21/22 @ 20:44 by Toma Ferris) Bladder cancer Cancer Carotid artery stenosis Chronic kidney disease COPD (chronic obstructive pulmonary disease) Diverticulosis Easy bruisability Enlarged prostate Fragile skin Gout Hernia HTN (hypertension) Hypercholesterolemia Hypothyroid Lumbar spinal stenosis Numbness and tingling Peripheral vascular disease Personal history of colonic polyps Psoriasis Right foot drop Spinal stenosis Vitamin D deficiency Surgical History (Last Reviewed 08/21/22 @ 20:44 by Toma Ferris) History of bladder surgery History of colonoscopy History of femoropopliteal bypass History of left-sided carotid endarterectomy History of lumbar spinal fusion (07/25/22) History of lumbar surgery History of lumbar surgery (08/11/18) Hx of appendectomy Hx of hand surgery Hx of tonsillectomy Occupational Therapy Inpatient Evaluation/Re-Eval M1 PT/OT-IP Prior Functional Status Start: 08/22/22 08:41 Freq: NEEDED Status: Discharge Protocol: Document 08/22/22 12:49 [facility] (Rec: 08/22/22 14:24 [facility] [id number]) Medical Review Prior Functional Status Medical History Reviewed Yes Communication WNL. Pt is an effective verbal communicator. Mobility and Gait Independent without AD. Occasionally uses a SPC for balance. Pt has chronic right foot drop but he compensates well. Activities of Daily Living and IADL's Independent. Pt does drive. Prior Functional Level (Other details) Pt had his third lumbar surgery last month to address radiating pain to his hip which he states has resolved. PMH includes L carotid endarterectomy (2016) and three lumbar surgeries. Per chart notes, he is a daily smoker. Social History Household Members spouse Living Arrangements House Number of Floors (Floors) One Floor Number of Stairs To Enter/Railing? 3 DARA with narrow B rails. 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 He lives in [place] with his spouse, Linda. M2 OT-IP Current Condition Start: 08/22/22 14:01 Freq: Status: Discharge Protocol: Document 08/22/22 12:49 [facility] (Rec: 08/22/22 14:24 [facility] [id number]) Occupational Therapy Current Condition Current Condition Evaluation Date 08/22/22 Treatment Diagnosis Right inguinal hernia and multiple small left infarcts Diagnosis Onset Date 08/21/22 M3 OT- IP Subjective and Pain Start: 08/22/22 14:01 Freq: Status: Discharge Protocol: Document 08/22/22 12:49 [facility] (Rec: 08/22/22 14:24 [facility] [id number]) OT- Subjective Occupational Therapy Visit Type Type Initial Evaluation Visit Start Time 12:49 Visit Stop Time 13:12 Total Visit Minutes 23 Occupational Therapy Visit Comments Patient Comments Pt agreed to work with OT and feel that he is back to baseline. Patient/Caregiver Goals To go home. OT Pain Assessment Pain When Pain Assessed At Rest Pain Present Pain Present Denied Pain M4 OT- IP ADL's Start: 08/22/22 14:01 Freq: Status: Discharge Protocol: Document 08/22/22 12:49 [facility] (Rec: 08/22/22 14:24 [facility] [id number]) OT [id number] General Evaluation Self-Feeding Ability Independent OT ADL-Grooming General Evaluation Grooming Ability Independent OT ADL-Oral Care Comments Oral Care Comments not performed OT ADL-Dressing General Eval Lower Body Dressing Ability Maximum Assistance Comments OT Dressing Comments Due to his recent back surgery , his has bee assist him to don his socks and shoes. Pt able to stand to get his underwear on with close SBA and use of the wall for balance. Suggested that it would be best for him to sit for LB dressing needs. OT ADL-Toileting Comments OT Toileting Comments NOt performed. OT ADL-Bathing Comments OT Bathing Comments NOt performed. M5 OT- IP IADL's Start: 08/22/22 14:01 Freq: Status: Discharge Protocol: Document 08/22/22 12:49 [facility] (Rec: 08/22/22 14:24 [facility] [id number]) OT-Instrumental Activities of Daily Living Home Safety Awareness Awareness of Need for Assistance at Home Good Awareness Ability to Problem Solve Emergency Able to Problem Solve Situations Medication Management Medication Management Comments Would be good for his to provide supervision as needed. Money Management Money Management Comments Would be good for his to provide supervision as needed. Meal Preparation Meal Preparation Caregiver Provides Assist Manager Retail Sales Manager Retail Sales Caregiver Provides Assist M6 OT- IP Functional Cognition Start: 08/22/22 14:01 Freq: Status: Discharge Protocol: Document 08/22/22 12:49 [facility] (Rec: 08/22/22 14:24 [facility] [id number]) Cognitive Factors Limiting Selfcare Function Cognitive Ability Level of Alertness Alert Patient Orientation Name,Place,Situation Attention Span Ability Capable of Focused Attention, Capable of Sustained Attention Ability to Follow Commands Able to Follow Multi-Step Commands Safety Awareness No Deficits Noted Problem Solving Ability No deficits Noted Executive Function Ability Unable to Remember Details Cognitive Comments Cognitive Assessment Comments Pt able to answer all home safety questions accurately. Pt scored 150 seconds on [place] making Part b which implies impairment for visual attention, task switching, speed of processing, mental flexibility, and executive functioning. Pt having to use his left hand which is not his dominant hand which may also affected his score. Pt states will not drive at this time. OT- Vision and Hearing OT- Hearing Assessment OT- Hearing Assessment WFL OT- Vision Assessment Visual Acuity Glasses For Reading Visual Attentiveness WFL Occular Pursuits WFL M7 OT- IP Mobility and Balance Start: 08/22/22 14:01 Freq: Status: Discharge Protocol: Document 08/22/22 12:49 [facility] (Rec: 08/22/22 14:24 [facility] [id number]) OT-Transfer Assessment Sit to and From Stand Sit to and from Stand Independent Transfers Transfer Ability Independent Technique Transfer Destination Chair Transfer Technique Stand Step Pivot Devices Transfer Assistive Devices None Comments Mobility Comments Pt independent in the room. Close SBA when pt standing on one leg for LB dressing needs but able to hold to the wall for his balance. OT- Balance Assessment Sitting Balance and Reactions Static Sitting Balance Ability Normal Dynamic Sitting Balance Ability Good Standing Balance and Reactions Static Standing Balance Ability Good Dynamic Standing Balance Ability Fair M8 OT- IP Objective Assessments Start: 08/22/22 14:01 Freq: Status: Discharge Protocol: Document 08/22/22 12:49 [facility] (Rec: 08/22/22 14:24 [facility] [id number]) OT Gross Range of Motion Upper Extremity Range of Motion ROM Impairments RUE slightly decreased for end AROM. OT Strength Comments Strength Comments RUE slightly weaker than LUE, NT at shoulder due to recent back SX. OT- Coordination Assessment Upper Extremity Finger to Nose Test Right UE Impaired Finger Tapping Test Right UE Impaired Comments Coordination Comments Slightly off for right UE M9 OT- IP Assessment and Plan Start: 08/22/22 14:01 Freq: Status: Discharge Protocol: Document 08/22/22 12:49 [facility] (Rec: 08/22/22 14:24 [facility] [id number]) OT Summary Assessment and Plan Potential Rehabilitation Potential Good Analytic Complexity at Evaluation Moderate Summary OT Impairments Range of Motion,Strength, Balance,Functional Mobility, Toileting,Bathing,Shower Transfers,Activity Tolerance Progress Towards Goals Progressing Toward Goals Assessment Summary Pt MOD complexity and main barriers are decreased executive functioning, balance , and coordination with RUE. Pt states feels that his coordination and control of RUE has decline in the last few months. Pt looking to go home with his supportive to assist. Pt has had two Dupuytren's surgery which per pt did not work out and also affects his coordination as well. Pt would benefit form outpt PT and OT to work on increasing overall coordination and strength on RUE. Goals Bathing Goal Independent OT-Other Goals Pt to be able to independently work on FMS and control with RUE. Days to Meet Goals 3 Frequency of Treatment Frequency Of Treatment Once a Day Treatment Plan OT Treatment Plan ADL Training,Functional Mobility,Therapeutic Exercises ,Patient/Family Education, Discharge Planning Discharge Recommendations OT Discharge Recommendations Home with Assistance, Outpatient PT Transportation Needs at Discharge Private Vehicle
--- NOTE | 2022-08-22 15:39 | PM.PN.1 ---
Subjective Subjective Date Patient Seen: 08/22/22 Time Patient Seen: 10:30 Interval history: Patient completely back to baseline and feeling much better. Most of his symptoms have resolved other than mild right leg weakness and balance difficulty. PT recommending outpatient PT f/u. Exam Vital Signs (past 8 hours): - 08/22/22 08:00 Temperature 98.8 F Pulse Rate 84 Respiratory Rate 21 Blood Pressure 149/67 H Pulse Oximetry 96 Oxygen Flow Rate 2 Oxygen Delivery Method Room Air Oxygen Flow Rate 2 Narrative Exam Narrative: GEN: Alert and oriented x3 HEENT: moist mucous membranes, PERRL NECK: trachea midline, no JVD CV: regular rate and rhythm, no murmurs PULM: clear bilaterally ABD: soft, nontender, nondistended, no organomegaly EXT: warm and well perfused with no edema NEURO: Moving all extremities, strength 5/5 in upper ext and 4/5 in RLE. No facial droop. Objective Labs Result Diagrams: 08/22/22 04:03 08/22/22 04:03 Labs: Laboratory Results - last 24 hr 08/21/22 08/21/22 08/21/22 16:45 16:45 16:45 WBC 6.4 RBC 3.57 L Hgb 11.1 L Hct 33.0 L MCV 92.2 MCH 31.1 MCHC 33.7 RDW 14.7 Plt Count 157 Neut % (Auto) 92.7 H Lymph % (Auto) 5.2 L [place] % (Auto) 1.4 L Eos % (Auto) 0.4 L Baso % (Auto) 0.3 Neut # (Auto) 5900 Lymph # (Auto) 300 L [place] # (Auto) 100 Eos # (Auto) 0 Baso # (Auto) 0 PT 12.6 INR 1.1 Sodium 133 L Potassium 4.0 Chloride 104 Carbon Dioxide 24 BUN 23 H Creatinine 1.12 Estimated GFR > 60 BUN/Creatinine Ratio 20.5 Glucose 104 Hemoglobin A1c Calcium 8.3 L Magnesium Total Bilirubin 0.2 AST 23 ALT 17 Alkaline Phosphatase 72 Troponin I < 0.012 Total Protein 5.3 L Albumin 2.8 L Globulin 2.5 Albumin/Globulin Ratio 1.1 Triglycerides Cholesterol LDL Cholesterol, Calc HDL Cholesterol TSH Nasal Screen MRSA (PCR) 08/21/22 08/21/22 08/21/22 16:45 16:45 16:45 WBC RBC Hgb Hct MCV MCH MCHC RDW Plt Count Neut % (Auto) Lymph % (Auto) [place] % (Auto) Eos % (Auto) Baso % (Auto) Neut # (Auto) Lymph # (Auto) [place] # (Auto) Eos # (Auto) Baso # (Auto) PT INR Sodium Potassium Chloride Carbon Dioxide BUN Creatinine Estimated GFR BUN/Creatinine Ratio Glucose Hemoglobin A1c 5.3 Calcium Magnesium 1.8 Total Bilirubin AST ALT Alkaline Phosphatase Troponin I Total Protein Albumin Globulin Albumin/Globulin Ratio Triglycerides Cholesterol LDL Cholesterol, Calc HDL Cholesterol TSH 3.33 Nasal Screen MRSA (PCR) 08/21/22 08/21/22 08/22/22 16:45 17:43 04:03 WBC 8.2 RBC 3.82 L Hgb 11.8 L Hct 35.4 L MCV 92.6 MCH 30.9 MCHC 33.3 RDW 14.6 Plt Count 176 Neut % (Auto) 91.0 H Lymph % (Auto) 5.3 L [place] % (Auto) 3.5 Eos % (Auto) 0.0 L Baso % (Auto) 0.2 Neut # (Auto) 7400 H Lymph # (Auto) 400 L [place] # (Auto) 300 Eos # (Auto) 0 Baso # (Auto) 0 PT INR Sodium Potassium Chloride Carbon Dioxide BUN Creatinine Estimated GFR BUN/Creatinine Ratio Glucose Hemoglobin A1c Calcium Magnesium Total Bilirubin AST ALT Alkaline Phosphatase Troponin I Total Protein Albumin Globulin Albumin/Globulin Ratio Triglycerides 67 Cholesterol 119 L LDL Cholesterol, Calc 55 HDL Cholesterol 51 TSH Nasal Screen MRSA (PCR) Negative for mrsa 08/22/22 04:03 WBC RBC Hgb Hct MCV MCH MCHC RDW Plt Count Neut % (Auto) Lymph % (Auto) [place] % (Auto) Eos % (Auto) Baso % (Auto) Neut # (Auto) Lymph # (Auto) [place] # (Auto) Eos # (Auto) Baso # (Auto) PT INR Sodium 135 L Potassium 4.2 Chloride 105 Carbon Dioxide 20 L BUN 25 H Creatinine 1.01 Estimated GFR > 60 BUN/Creatinine Ratio 24.8 H Glucose 120 H Hemoglobin A1c Calcium 8.7 Magnesium Total Bilirubin AST ALT Alkaline Phosphatase Troponin I Total Protein Albumin Globulin Albumin/Globulin Ratio Triglycerides Cholesterol LDL Cholesterol, Calc HDL Cholesterol TSH Nasal Screen MRSA (PCR) PFSH Medical History Bladder cancer Cancer Carotid artery stenosis Chronic kidney disease COPD (chronic obstructive pulmonary disease) Diverticulosis Easy bruisability Enlarged prostate Fragile skin Gout Hernia HTN (hypertension) Hypercholesterolemia Hypothyroid Lumbar spinal stenosis Numbness and tingling Peripheral vascular disease Personal history of colonic polyps Psoriasis Right foot drop Spinal stenosis Vitamin D deficiency Surgical History History of bladder surgery History of colonoscopy History of femoropopliteal bypass History of left-sided carotid endarterectomy History of lumbar spinal fusion (07/25/22) History of lumbar surgery History of lumbar surgery (08/11/18) Hx of appendectomy Hx of hand surgery Hx of tonsillectomy Social History household members: spouse Smoking Status: Current every day smoker alcohol intake: current Assessment & Plan Assessment & Plan narrative: # acute left stroke, improving -presented with acute right-sided deficits following hernia repair surgery, mostly all resolved the next day -MRI head revealed 3 small left-sided strokes, CTA head with occlusion of left proximal common carotid artery not amenable to thrombectomy per [facility] stroke -not tPA candidate secondary to spinal surgery 1 month ago -medical management only with aspirin 325 mg daily, discharged on this in place of baby aspirin. -recommended smoking cessation -discharged on Lipitor 80 mg nightly, stopped fenofibrate -echo 60-65% without interatrial shunt, unchanged echo from March 2022 -bilateral carotid ultrasound redemonstrated occluded LCA and <50% right RCA stenosis # hyponatremia, mild -NS fluids # right inguinal hernia repair with mesh, recs per Dr. Ellsworth general surgery # hypertension # hyperlipidemia # lumbar spinal stenosis s/p lumbar surgery # hypothyroidism Code status is full code. COVID negative. DVT prophylaxis with Lovenox. Proxy is Linda. Medicine will sign off today. Thank you for allowing us to participate in the care of this patient. Should you have any further questions, do not hesitate to speak with us directly or call us. Time Spent With Patient Critical Care time: I spent a total of [] minutes of critical care time on this patient's care today; this time is exclusive of procedural time.
== END 2022-08-22 14:05 | disposition home or self-care (01) | DRG 988 ==
LOC: ICU 21:25
PROVIDERS: Student in an Organized Health Care Education/Training Program; Admitting Provider Surgery; PCP Student in an Organized Health Care Education/Training Program; Referring Provider Surgery; Visit Provider Surgery
PROC: 0YU50JZ Supplement Right Inguinal Region with Synthetic Substitute, Open Approach (ICD-10-PCS; principal; 2022-08-21 13:15)
DX: I63.9 Cerebral infarction, unspecified (principal); E87.1 Hypo-osmolality and hyponatremia; K40.90 Unilateral inguinal hernia, without obstruction or gangrene, not specified as recurrent; R47.89 Other speech disturbances; R29.810 Facial weakness; F17.210 Nicotine dependence, cigarettes, uncomplicated; R29.719 NIHSS score 19; I10 Essential (primary) hypertension; E78.5 Hyperlipidemia, unspecified; J44.9 Chronic obstructive pulmonary disease, unspecified; R09.02 Hypoxemia; R29.702 NIHSS score 2; Z20.822 Contact with and (suspected) exposure to COVID-19
CPT/HCPCS: 36415; 49505; 70450; 70496; 70498; 70551; 71045; 80048; 80053; 80061; 82962; 83036; 83735; 84443; 84484; 85025; 85610; 87635; 87797; 93005; 93306; 93880; 97162; 97166; C9803; J0690; J1100; J1650; J2250; J2405; J2704; J3010; Q9967

== ENCOUNTER 2022-08-24 13:21 | Emergency (ER) | payer MEDICARE, SELFPAY ==
[2022-08-21 17:59] VITALS: BMI 22.2
[2022-08-24] VITALS (9 sets, daily range): BP systolic 157–193; BP diastolic 72–90; PULSE 63–98; RESP 15–23; TEMP 36.5; O2SAT 96–99; BMI 22.2
--- NOTE | 2022-08-24 13:44 | DI.CT.S_ITS ---
PROCEDURE: CT STROKE INDICATIONS: RIGHT LEG WEEKNESS AND TINGLING TECHNIQUE: Noncontrast 4.5 mm thick angled axial sections acquired from the foramen magnum to the vertex, with coronal reformats. For radiation dose reduction, the following was used: automated exposure control, adjustment of mA and/or kV according to patient size. COMPARISON: [facility], CT, CT STROKE, 08/21/2022, 16:26. FINDINGS: Image quality: Excellent. CSF spaces: Basal cisterns are patent. No extra-axial fluid collections. Ventricles are normal in size and shape. Brain: No midline shift. No intracranial masses or hemorrhage. No area of hypodensity in a large vascular distribution to suggest acute infarction. Unchanged areas of hypodensity at the left basal ganglia and left frontal lobe. Periventricular hypodensity consistent with chronic microvascular ischemic change. Age-related parenchymal loss. Skull and face: Calvarium and visualized facial bones are intact, without suspicious lesions. Sinuses: Similar opacification of the right maxillary sinus. Opacification of a right ethmoid air cell. Visualized paranasal sinuses are otherwise clear. Mastoids are clear. IMPRESSION: No acute intracranial hemorrhage. Unchanged areas of hypodensity in the left basal ganglia and left frontal lobe. These are consistent with prior infarcts. Right maxillary sinusitis. Comment: Findings were discussed with Nelida Santos at 2:03 p.m. This study fulfills neurological imaging criteria for inclusion or exclusion of acute stroke therapies based on available published neurological imaging guidelines. Dictated by: Maury Valdovinos M.D. on 08/24/2022 at 14:00 Approved by: Maury Valdovinos M.D. on 08/24/2022 at 14:05
--- NOTE | 2022-08-24 13:44 | DI.RAD.S_ITS ---
PROCEDURE: XR CHEST 1V INDICATIONS: Possible stroke TECHNIQUE: One view of the chest was acquired. COMPARISON: [facility], CR, XR CHEST 1V, 08/22/2022, 7:52. [facility], CR, XR CHEST 2V, 02/21/2022, 11:45. FINDINGS: Surgical changes and devices: None. Lungs and pleura: Lungs are mildly abnormal with a chronic mild interstitial prominence perhaps reflecting a prior smoking history.. No pleural effusions or pneumothorax. Mediastinum: Mediastinal contours appear normal. Heart size is normal. Bones and chest wall: No suspicious bony lesions. Overlying soft tissues appear unremarkable. IMPRESSION: No aspiration seen. Suspect prior smoking history-mild chronic interstitial prominence. Dictated by: Harman Lee M.D. on 08/24/2022 at 14:10 Approved by: Harman Lee M.D. on 08/24/2022 at 14:11
[2022-08-24 14:07] LABS: Alanine Aminotransferase 22 IU/L (<50); Albumin 3.9 g/dL (3.5-5.0); Albumin Globulin Ratio 1.1 (1.0-2.8); Alkaline Phosphatase 93 U/L (38-126); Aspartate Aminotransferase 29 IU/L (17-59); BUN Creatinine Ratio 18.7 (6-22); Bilirubin Total 0.4 mg/dL (0.2-1.3); Blood Urea Nitrogen 28 mg/dL (9-20); Calcium 9.8 mg/dL (8.4-10.2); Carbon Dioxide 28 mmol/L (22-32); Chloride 101 mmol/L (98-107); Creatine Kinase 39 U/L (55-170); Estimated Glomerular Filt Rate 47 mL/min (>60); Globulin 3.4 g/dL (1.7-4.1); Glucose 132 mg/dL (80-110); HEMOLYSIS < 15 (0-50); Potassium 3.6 mmol/L (3.4-5.1); Sodium 138 mmol/L (137-145); Total Protein 7.3 g/dL (6.3-8.2)
[2022-08-24 14:11] LABS: Add Manual Diff / Slide Review NO; Basophils Absolute Auto 0 /uL (0-100); Basophils Percent Auto 0.7 % (0-2); Eosinophils Absolute Auto 100 /uL (0-450); Eosinophils Percent Auto 0.8 % (2-4); Hematocrit 42.3 % (41-53); Lymphocytes Absolute Auto 800 /uL (1100-4500); Lymphocytes Percent Auto 13.3 % (25-40); Mean Corpuscular HGB Conc 33.2 % (30-36); Mean Corpuscular Hemoglobin 30.6 PG (26-34); Mean Corpuscular Volume 92.2 fL (80-100); Monocytes Absolute Auto 500 /uL (0-900); Monocytes Percent Auto 8.5 % (3-14); Neutrophils Absolute Auto 4700 /uL (1500-7000); Neutrophils Percent Auto 76.7 % (50-75); Platelet Count 230 X10^3/uL (150-400); Red Blood Cell Count 4.58 X10^6/uL (4.5-5.9); Red Cell Distribution Width 14.6 % (11.6-14.8); White Blood Cell Count 6.2 X10^3/uL (4.5-11.0)
[2022-08-24 14:16] LABS: Prothrombin Time 11.7 SECONDS (10.1-12.7)
[2022-08-24 14:18] LABS: Troponin I 0.013 ng/mL (0.01-0.034)
[2022-08-24 14:19] LABS: PTT Partial Thromboplastin Tim 30 SECONDS (26-36)
--- NOTE | 2022-08-24 14:57 | ED_ITS ---
HPI - Neuro Symptoms/Deficit General Chief Complaint: Neuro Symptoms/Deficit Stated Complaint: Weakness Time Seen by Provider: 08/24/22 14:57 Source: patient Mode of arrival: EMS Limitations: no limitations History of Present Illness HPI Narrative: This is a 77-year-old male who presents with complaint of right-sided weakness. Patient was seen here 2 days before had hernia repair and when he woke up had right-sided weakness and had a stroke during his surgery. He had MRI which showed left change changes consistent with his weakness during his hospitalization and discharged home on aspirin 324 mg as well as atorvastatin and addition to his prior home medications. Patient did not appreciate the next on his right side but is clearly documented his chart and his states that he did have weakness his right side during his hospitalization they described sort of waxing and waning intensity since his discharge. She notes that he can lift and move things but often has some difficulty with coordination which after discussion he relates as well. He states his speech has improved significantly from this episode and has not returned. They a including his have not appreciated other new signs in comparison to his prior chart. Patient has not had fevers or chills. No chest pain or shortness of breath, no new abdominal pain. He states his incision seems to be healing well. He has not had any GI or urinary symptoms. On Anticoagulants: Yes Related Data Home Medications Medication Instructions Recorded Confirmed tamsulosin 0.4 mg capsule 0.4 mg PO QAM 05/01/18 08/21/22 albuterol sulfate 90 mcg/actuation 1 puff inhalation Q4-6H PRN 12/18/18 08/17/22 aerosol inhaler (ProAir HFA) Shortness Of Breath amlodipine 5 mg tablet 5 mg PO DAILY 07/04/22 08/21/22 hydralazine 25 mg tablet 25 mg PO BID 07/04/22 08/21/22 lisinopril 5 mg tablet 5 mg PO DAILY 07/04/22 08/17/22 Previous Rx's Medication Instructions Recorded acetaminophen 325 mg tablet 650 mg PO Q6HR PRN Pain, Mild 07/26/22 (1-3) #120 tabs hydrocodone 5 mg-acetaminophen 325 1 tab PO BID PRN pain #7 tabs 08/21/22 mg tablet aspirin 325 mg tablet 325 mg PO DAILY #90 tabs 08/22/22 atorvastatin 80 mg tablet 80 mg PO BEDTIME #90 tabs 08/22/22 Allergies Allergy/AdvReac Type Severity Reaction Status Date / Time No Known Drug Allergies Allergy Verified 08/21/22 12:17 Review of Systems Review of Systems ROS Unobtainable: All systems reviewed & are unremarkable except as noted in HPI and below Hematologic/Lymphatic On Anticoagulants: Yes Patient History Medical History Bladder cancer Cancer Carotid artery stenosis Chronic kidney disease COPD (chronic obstructive pulmonary disease) Diverticulosis Easy bruisability Enlarged prostate Fragile skin Gout Hernia HTN (hypertension) Hypercholesterolemia Hypothyroid Lumbar spinal stenosis Numbness and tingling Peripheral vascular disease Personal history of colonic polyps Psoriasis Right foot drop Spinal stenosis Vitamin D deficiency Surgical History History of bladder surgery History of colonoscopy History of femoropopliteal bypass History of left-sided carotid endarterectomy History of lumbar spinal fusion (07/25/22) History of lumbar surgery History of lumbar surgery (08/11/18) Hx of appendectomy Hx of hand surgery Hx of tonsillectomy Social History household members: spouse Smoking Status: Current every day smoker alcohol intake: current Smoking Status: Current every day smoker alcohol intake frequency: holidays/special occasions only Substance Use Type: does not use Exam Narrative Exam Narrative: GEN: well nourished, well appearing male, alert and oriented x 3, patient appears to be in mild distress. HEENT: Atraumatic, pupils are equal round reactive to light, extraocular movements are intact, nares are clear, TMs are clear with no fluid, there is no conjunctival pallor. Throat is clear without any exudates, erythema, tonsillar enlargement or uvular deviation HEART: Regular rate and rhythm without murmur, clicks, rubs. No carotid bruits, pulses are equal in upper and lower extremities LUNGS:Lungs clear to auscultation, no wheezes, rales, crackles, chest moves symmetrically ABD:bowel sounds normal, soft, non-tender, no guarding, rebound, rigidity, no masses noted, no hepatosplenomegaly :No CVA tenderness MSCL: Non-tender, no muscle atrophy, full range of motion, no drift of right upper extremity but patient does have drift of right leg NEURO:CN 2-12 intact, sensation normal, finger nose finger test normal on left, has mild difficulty with right heel martell test normal with left, able to perform on right slightly difficult. No dysarthria. Mild aphasia has some slight word- finding with an H sentences but is able to perform Initial Vital Signs Initial Vital Signs: Vital Signs Pulse Rate 78 08/24/22 13:26 Blood Pressure 167/77 H 08/24/22 13:26 Pulse Oximetry 98 08/24/22 13:26 Scores NIH Stroke Scale Level of Conciousness: Alert, keenly responsive Ask month/age: Answers both questions correctly. Open/close eyes, close hand: Performs both tasks correctly Best gaze horizontal: Normal Visual chacon: No visual loss Facial palsy: Normal symetrical movement Left arm drift: No drift for full 10 sec Right arm drift: No drift for full 10 sec Left leg drift: No drift for full 5 sec Right leg drift: Drifts down, not to bed Limb ataxia: Present in two limbs Sensory on face/arms/legs: Normal, no sensory loss Best language: No aphasia, normal Dysarthria: Normal Extinction or inattention: No abnormality Total NIH Stroke scale score: 3 Course Orders Ordered: ED Orders 08/24/22 13:35 Complete Blood Count AUTO DIFF Stat Comprehensive Metabolic Panel Stat Magnesium Stat Partial Thromboplastin Time Stat Prothrombin Time INR Stat Troponin & CK Cardiac Panel Stat 08/24/22 13:44 CT Stroke Stat XR chest 1V Stat 08/24/22 14:03 EKG-12 Lead Stat 08/24/22 14:35 COVID19 -Nasal RAPID/Pre-Proc Stat Discontinued Medications Ondansetron HCl (Ondansetron 4 Mg/2 Ml Inj) 4 mg IV NOW ONE Stop: 08/24/22 13:44 Last Admin: 08/24/22 15:17 Dose: Not Given Documented By: NR Ondansetron HCl (Ondansetron 4 Mg Odt) 4 mg SL NOW ONE Stop: 08/24/22 13:44 Last Admin: 08/24/22 15:17 Dose: Not Given Documented By: NR Vital Signs Vital signs: Vital Signs - 8 hr 08/24/22 13:54 08/24/22 13:26 08/24/22 13:26 Temperature 97.7 F Pulse Rate 98 H 78 Respiratory Rate 16 Blood Pressure 167/77 H 167/77 H Pulse Oximetry 99 98 Oxygen Delivery Method Room Air 08/24/22 13:30 08/24/22 13:30 08/24/22 14:00 Temperature Pulse Rate 81 Respiratory Rate 15 Blood Pressure 164/74 H 183/82 H Pulse Oximetry 98 Oxygen Delivery Method 08/24/22 14:00 08/24/22 14:30 08/24/22 14:30 Temperature Pulse Rate 77 71 Respiratory Rate 22 21 Blood Pressure 166/79 H Pulse Oximetry 98 97 Oxygen Delivery Method 08/24/22 15:00 08/24/22 15:00 08/24/22 15:30 Temperature Pulse Rate 65 Respiratory Rate 17 Blood Pressure 157/75 H 163/72 H Pulse Oximetry 97 Oxygen Delivery Method 08/24/22 15:30 08/24/22 16:00 08/24/22 16:00 Temperature Pulse Rate 63 73 Respiratory Rate 16 23 Blood Pressure 193/90 H Pulse Oximetry 96 96 Oxygen Delivery Method 08/24/22 16:06 08/24/22 16:06 Temperature Pulse Rate 69 Respiratory Rate 18 Blood Pressure 179/86 H Pulse Oximetry 97 Oxygen Delivery Method MDM - Neuro Symptoms/Deficit Lab Data Result diagrams: 08/24/22 13:35 08/24/22 13:35 Labs: Lab Results 08/24/22 08/24/22 08/24/22 Range/Units 13:35 13:35 13:35 WBC 6.2 (4.5-11.0) X10^3/uL RBC 4.58 (4.5-5.9) X10^6/uL Hgb 14.0 (13.5-17.5) g/dL Hct 42.3 (41-53) % MCV 92.2 (80-100) fL MCH 30.6 (26-34) PG MCHC 33.2 (30-36) % RDW 14.6 (11.6-14.8) % Plt Count 230 (150-400) X10^3/uL Neut % (Auto) 76.7 H (50-75) % Lymph % (Auto) 13.3 L (25-40) % [place] % (Auto) 8.5 (3-14) % Eos % (Auto) 0.8 L (2-4) % Baso % (Auto) 0.7 (0-2) % Neut # (Auto) 4700 (8856-2408) /uL Lymph # (Auto) 800 L (1841-9342) /uL [place] # (Auto) 500 (0-900) /uL Eos # (Auto) 100 (0-450) /uL Baso # (Auto) 0 (0-100) /uL PT 11.7 (10.1-12.7) SECONDS INR 1.0 (0.9-1.3) APTT 30 (26-36) SECONDS Sodium 138 (137-145) mmol/L Potassium 3.6 (3.4-5.1) mmol/L Chloride 101 (98-107) mmol/L Carbon Dioxide 28 (22-32) mmol/L BUN 28 H (9-20) mg/dL Creatinine 1.50 H (0.66-1.25) mg/dL Estimated GFR 47 L (>60) mL/min BUN/Creatinine Ratio 18.7 (6-22) Glucose 132 H (80-110) mg/dL Calcium 9.8 (8.4-10.2) mg/dL Magnesium 2.0 (1.6-2.3) mg/dL Total Bilirubin 0.4 (0.2-1.3) mg/dL AST 29 (17-59) IU/L ALT 22 (<50) IU/L Alkaline Phosphatase 93 (38-126) U/L Total Creatine Kinase 39 L (55-170) U/L CK-MB (CK-2) TNP CK-MB (CK-2) Rel Index TNP Troponin I 0.013 (0.01-0.034) ng/mL Total Protein 7.3 (6.3-8.2) g/dL Albumin 3.9 (3.5-5.0) g/dL Globulin 3.4 (1.7-4.1) g/dL Albumin/Globulin Ratio 1.1 (1.0-2.8) SARS-CoV-2 (PCR) (Negative) 08/24/22 Range/Units 14:35 WBC (4.5-11.0) X10^3/uL RBC (4.5-5.9) X10^6/uL Hgb (13.5-17.5) g/dL Hct (41-53) % MCV (80-100) fL MCH (26-34) PG MCHC (30-36) % RDW (11.6-14.8) % Plt Count (150-400) X10^3/uL Neut % (Auto) (50-75) % Lymph % (Auto) (25-40) % [place] % (Auto) (3-14) % Eos % (Auto) (2-4) % Baso % (Auto) (0-2) % Neut # (Auto) (2053-7530) /uL Lymph # (Auto) (6216-3624) /uL [place] # (Auto) (0-900) /uL Eos # (Auto) (0-450) /uL Baso # (Auto) (0-100) /uL PT (10.1-12.7) SECONDS INR (0.9-1.3) APTT (26-36) SECONDS Sodium (137-145) mmol/L Potassium (3.4-5.1) mmol/L Chloride (98-107) mmol/L Carbon Dioxide (22-32) mmol/L BUN (9-20) mg/dL Creatinine (0.66-1.25) mg/dL Estimated GFR (>60) mL/min BUN/Creatinine Ratio (6-22) Glucose (80-110) mg/dL Calcium (8.4-10.2) mg/dL Magnesium (1.6-2.3) mg/dL Total Bilirubin (0.2-1.3) mg/dL AST (17-59) IU/L ALT (<50) IU/L Alkaline Phosphatase (38-126) U/L Total Creatine Kinase (55-170) U/L CK-MB (CK-2) CK-MB (CK-2) Rel Index Troponin I (0.01-0.034) ng/mL Total Protein (6.3-8.2) g/dL Albumin (3.5-5.0) g/dL Globulin (1.7-4.1) g/dL Albumin/Globulin Ratio (1.0-2.8) SARS-CoV-2 (PCR) Negative (Negative) Point of Care Testing Glucose POC [address] scan - head: Radiologist's Impression: [address] [address] [address] Scan Report Signed Patient: Abram Moscoso MR#: [id number] : 1945 Acct:[id number] Age/Sex: 77 / M Date of Service: 08/24/22 Loc: ED Accession Number: [id number] ?? Procedure: CT Stroke Ordering Provider: Nelida Santos D.O. PROCEDURE:? CT STROKE ? INDICATIONS:? RIGHT LEG WEEKNESS AND TINGLING ? TECHNIQUE:? Noncontrast 4.5 mm thick angled axial sections acquired from the foramen magnum to the vertex, with coronal reformats.? For radiation dose reduction, the following was used:? automated exposure control, adjustment of mA and/or kV according to patient size.? ? COMPARISON:? [facility], CT, CT STROKE, 08/21/2022, 16:26. ? FINDINGS:? Image quality:? Excellent.? ? CSF spaces:? Basal cisterns are patent.? No extra-axial fluid collections.? Ventricles are normal in size and shape.? ? Brain:? No midline shift.? No intracranial masses or hemorrhage.? No area of hypodensity in a large vascular distribution to suggest acute infarction.? Unchanged areas of hypodensity at the left basal ganglia and left frontal lobe.? Periventricular hypodensity consistent with chronic microvascular ischemic change. Age-related parenchymal loss. ? Skull and face:? Calvarium and visualized facial bones are intact, without suspicious lesions.? ? Sinuses:? Similar opacification of the right maxillary sinus.? Opacification of a right ethmoid air cell.? Visualized paranasal sinuses are otherwise clear.? Mastoids are clear. ? IMPRESSION:? No acute intracranial hemorrhage. ? Unchanged areas of hypodensity in the left basal ganglia and left frontal lobe.? These are consistent with prior infarcts. ? Right maxillary sinusitis. ? Comment: Findings were discussed with Nelida Santos at 2:03 p.m. ? This study fulfills neurological imaging criteria for inclusion or exclusion of acute stroke therapies based on available published neurological imaging guidelines.? ? ? Dictated by: Maury Valdovinos M.D. on 08/24/2022 at 14:00 ? ? Approved by: Maury Valdovinos M.D. on 08/24/2022 at 14:05? Chest x-ray: Radiologist's Impression: Close Chest X-Ray (Signed) Harman Lee - 08/24/[address] (Signed) Call,Maury - 08/24/22 Carotid Doppler Study (Signed) Henrik Ponce - 08/22/22 Chest X-Ray (Signed) Call,Maury - 08/22/22 Telemetry Strips 08/21/22 Brain MRI (Signed) Turner,Guy - 08/21/22 Echocardiogram Ultrasound (Signed) Caleb Macias - 08/21/[address] (Signed) Patrick Sage - 08/21/22 Head/Neck CTA (Addendum) Turner,Guy - 08/21/22 Lumbar Spine X-Ray (Signed) Sorin Tran - 07/25/22 Abdomen/Pelvis CT (Signed) Guy Tompkins - 07/19/22 Outside EKG 07/18/22 Abdomen Ultrasound (Signed) Henrik Ponce - 06/28/[address] (Signed) Rosario Cortez - 06/04/22 DI Result CC 05/05/22 Echocardiogram Ultrasound (Signed) Caleb Macias - 03/30/22 Chest X-Ray (Signed) Kapil Krishna - 02/21/22 Lumbar Spine MRI (Signed) Patrick Sage - 12/10/21 Telemetry Strips 12/18/18 Lumbar Spine X-Ray (Signed) Neville Mendoza - 08/11/18 Outside EKG 04/29/18 Outside EKG 04/29/18 Echocardiogram Ultrasound (Signed) Den West - 02/04/18 Launch?[address] [address] XRay Report Signed Patient: Abram Moscoso MR#: [id number] : 1945 Acct:[id number] Age/Sex: 77 / M Date of Service: 08/24/22 Loc: ED Accession Number: [id number] ?? Procedure: XR chest 1V Ordering Provider: Nelida Santos D.O. PROCEDURE:? XR CHEST 1V ? INDICATIONS:? Possible stroke ? TECHNIQUE:? One view of the chest was acquired.? ? COMPARISON:? [facility], CR, XR CHEST 1V, 08/22/2022, 7:52.? [facility], CR, XR CHEST 2V, 02/21/2022, 11:45. ? FINDINGS:? ? Surgical changes and devices:? None.? ? Lungs and pleura:? Lungs are mildly abnormal with a chronic mild interstitial prominence perhaps reflecting a prior smoking history..? No pleural effusions or pneumothorax.? ? Mediastinum:? Mediastinal contours appear normal.? Heart size is normal.? ? Bones and chest wall:? No suspicious bony lesions.? Overlying soft tissues appear unremarkable.? ? IMPRESSION:? No aspiration seen.? Suspect prior smoking history-mild chronic interstitial prominence. ? ? Dictated by: Harman Lee M.D. on 08/24/2022 at 14:10 ? ? Approved by: Harman Lee M.D. on 08/24/2022 at 14:11?? ECG Data Attestation: I personally reviewed and interpreted this ECG as follows: Interpretation: Sinus rhythm, rate of 74 MS 160 QRS of [address] changes noted. MDM Narrative Medical decision making narrative: This is a 77-year-old male who comes in with complaint of right-sided weakness, patient had a stroke on the 21 of August he has an MRI which shows left- sided change consistent with right-sided weakness after further discussion with patient at bedside and evaluating his hospital stay he did have right-sided weakness and that this is not new it also sounds to be sort of waxing and waning intensity but not stuttering and I suspect that this is residual symptoms from his stroke. His notes that after he takes a nap for as well rested it is better and that is the day progresses and he gets more tired it seems to be more prominent. He has not had new changes that are different from his prior stroke in the last several days. He is currently taking a full dose aspirin and statin which were added to his normal medications. On exam his abdominal incision appears to be healing well. Head CT was negative for acute bleed, discussed with patient he has had brain MRI on the , CTA carotid Dopplers as well as echo we discussed obtaining a new MRI to evaluate for new stroke. Patient was unaware he had had an MRI in the hospital and prefers not to pursue this and feels comfortable returning home. We did discuss return precautions. All questions answered. Stroke Core Measures Exclusion Criteria TPA in CVA: Symptom Onset >3 or 4.5 Hours Discharge Plan Departure Patient Disposition: Home Clinical Impression: CVA (cerebral vascular accident) Instructions: DI for Stroke-Ischemic Activity Restrictions/Additional Instructions: As discussed your MRI from 08/21/2022 showed stroke that affects the right side of your body. I believe that your symptoms are from your initial 3 days and in your chart it is reflected that you are having these symptoms at this time. Please continue your aspirin 324 mg daily and your Lipitor in the evening. Please return for new symptoms, rapidly worsening symptoms, new speech changes, vision changes, severe headaches, chest pain, persistent vomiting, or other new or concerning changes Prescriptions: No Action lisinopril 5 mg tablet 5 mg PO DAILY hydralazine 25 mg tablet 25 mg PO BID amlodipine 5 mg tablet 5 mg PO DAILY tamsulosin 0.4 mg Capsule,Extended Release 24hr 0.4 mg PO QAM albuterol sulfate [ProAir HFA] 90 mcg/actuation Hfa Aerosol Inhaler 1 puff INHALATION Q4-6H PRN (Reason: Shortness Of Breath) acetaminophen 325 mg Tablet 650 mg PO Q6HR PRN (Reason: Pain, Mild (1-3)) Qty: 120 1RF hydrocodone-acetaminophen 5-325 mg tablet 1 tab PO BID PRN (Reason: pain) Qty: 7 0RF atorvastatin 80 mg tablet 80 mg PO BEDTIME Qty: 90 0RF aspirin 325 mg Tablet 325 mg PO DAILY Qty: 90 0RF Referrals: Li Jimenez PA-C [Primary Care Provider] - Visit Report Forms: Patient Portal/API
[2022-08-24 15:15] LABS: COVID19 -Nasal RAPID Negative (Negative)
== END 2022-08-24 16:21 | disposition home or self-care (01) ==
PROVIDERS: Emergency Provider Emergency Medicine; PCP Student in an Organized Health Care Education/Training Program
DX: I63.9 Cerebral infarction, unspecified (principal); Z79.01 Long term (current) use of anticoagulants; Z79.899 Other long term (current) drug therapy; Z20.822 Contact with and (suspected) exposure to COVID-19
CPT/HCPCS: 36415; 70450; 71045; 80053; 82550; 82962; 83735; 84484; 85025; 85610; 85730; 87635; 93005; 93010; 99284; C9803

== ENCOUNTER → 2023-07-15 10:01 | Outpatient (CLI) | payer MEDICARE, SELFPAY ==
[2022-08-21 17:59] VITALS: BMI 22.2
--- NOTE | 2023-07-15 | DI.US.S_ITS ---
PROCEDURE: US CAROTID DOPPLER BI INDICATIONS: Occlusion and stenosis of rt/lt carotid artery TECHNIQUE: Color and pulse Doppler interrogation was performed of both carotid systems, with image documentation and velocity measurements. COMPARISON: [facility], , US CAROTID DOPPLER BI, 08/22/2022, 7:34. FINDINGS: Stenosis calculations are based on SRU (Society of Radiologists in Ultrasound) criteria. Right side: Brachial blood pressure: 161/80 mm Hg. Common carotid artery peak systolic velocity: 106 cm/sec. Internal carotid artery peak systolic velocity: 67 cm/sec. Internal carotid artery end diastolic velocity: 21 cm/sec. External carotid artery peak systolic velocity: 120 cm/sec. ICA/CCA peak systolic ratio: 0.6 . Colon scale imaging description: Moderate atherosclerotic plaque. Percent internal carotid artery stenosis: Less than 50 percent . Vertebral artery: Flow direction is antegrade. Left side: Brachial blood pressure: 159/83 mm Hg. Common carotid artery peak systolic velocity: 73 cm/sec. Internal carotid artery peak systolic velocity: 0 cm/sec. Internal carotid artery end diastolic velocity: 0 cm/sec. External carotid artery peak systolic velocity: 69 cm/sec. ICA/CCA peak systolic ratio: Not applicable . Colon scale imaging description: Occluded left internal carotid artery with soft plaque. Percent internal carotid artery stenosis: Near occlusion . Vertebral artery: Flow direction is antegrade. Incidentally noted is a heterogeneous, hypervascular thyroid. 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 Less than 50 percent stenosis of the right internal carotid artery by peak systolic velocity criteria. Heterogeneous, hypervascular thyroid consistent with thyroiditis. Correlate with thyroid labs if not already performed. Dictated by: Jerome Downey M.D. on 07/15/2023 at 15:33 Approved by: Jerome Downey M.D. on 07/15/2023 at 15:35
== END ==
PROVIDERS: PCP Student in an Organized Health Care Education/Training Program; Referring Provider Student in an Organized Health Care Education/Training Program; Visit Provider Student in an Organized Health Care Education/Training Program
DX: Z86.73 Personal history of transient ischemic attack (TIA), and cerebral infarction without residual deficits (principal); I65.22 Occlusion and stenosis of left carotid artery; I65.21 Occlusion and stenosis of right carotid artery
CPT/HCPCS: 93880

== ENCOUNTER 2023-08-29 09:58 | Emergency (ER) | payer MEDICARE, SELFPAY ==
[2022-08-21 17:59] VITALS: BMI 22.2
--- NOTE | 2023-08-29 10:01 | ED_ITS ---
HPI - Dental/Oral General Chief complaint: Dental/Oral Stated complaint: swollen gum line ran out of meds Time Seen by Provider: 08/29/23 10:00 Source: patient, RN notes reviewed and old records reviewed Mode of arrival: Ambulatory Limitations: no limitations History of Present Illness HPI Narrative: 78-year-old male with history of chronic tobacco use, prior stroke, hypertension, dyslipidemia on aspirin 325 mg daily. Patient presents with complaint of dental pain that started yesterday in his right upper incisor. Patient states he took 2 tablets of amoxicillin the pain went away but when he woke up this morning he had new swelling of his cheek on the right side. Patient also has some redness. He states the pain has resolved. He denies fevers. He denies swelling of his tongue or airway. Patient states he had the amoxicillin left over that is a very old prescription. Patient states no fevers or chills. No pain to the ear. No nausea no vomiting. No other GI or urinary symptoms. He denies any other new changes today. He states no known drug allergies. He does continue to smoke regularly, occasional alcohol but not regularly, no recreational or IV drugs. Patient does not follow with a dentist regularly. Related Data Home Medications Medication Instructions Recorded Confirmed tamsulosin 0.4 mg capsule 0.4 mg PO QAM 05/01/18 09/12/22 albuterol sulfate 90 mcg/actuation 1 puff inhalation Q4-6H PRN 12/18/18 09/12/22 aerosol inhaler (ProAir HFA) Shortness Of Breath amlodipine 5 mg tablet 5 mg PO DAILY 07/04/22 09/12/22 hydralazine 25 mg tablet 25 mg PO BID 07/04/22 09/12/22 lisinopril 5 mg tablet 5 mg PO DAILY 07/04/22 09/12/22 Previous Rx's Medication Instructions Recorded acetaminophen 325 mg tablet 650 mg (2 x 325 mg) PO Q6HR PRN 07/26/22 Pain, Mild (1-3) #120 tabs hydrocodone 5 mg-acetaminophen 325 1 tab PO BID PRN pain #7 tabs 08/21/22 mg tablet aspirin 325 mg tablet 325 mg PO DAILY #90 tabs 08/22/22 atorvastatin 80 mg tablet 80 mg PO BEDTIME #90 tabs 08/22/22 clindamycin HCl 300 mg capsule 300 mg PO QID #40 caps 08/29/23 Allergies Allergy/AdvReac Type Severity Reaction Status Date / Time No Known Drug Allergies Allergy Verified 08/29/23 10:08 Review of Systems Review of Systems ROS Unobtainable: All systems reviewed & are unremarkable except as noted in HPI and below Patient History Medical History Diverticulosis Bladder cancer Hernia Spinal stenosis Personal history of colonic polyps Right foot drop Fragile skin Easy bruisability Psoriasis Cancer Enlarged prostate Numbness and tingling Vitamin D deficiency Peripheral vascular disease Chronic kidney disease Gout Lumbar spinal stenosis Carotid artery stenosis COPD (chronic obstructive pulmonary disease) HTN (hypertension) Hypothyroid Hypercholesterolemia Surgical History Hx of hand surgery History of lumbar spinal fusion (07/25/22) History of lumbar surgery (08/11/18) History of colonoscopy Hx of tonsillectomy History of lumbar surgery Hx of appendectomy History of femoropopliteal bypass History of left-sided carotid endarterectomy History of bladder surgery Social History household members: spouse Smoking Status: Current every day smoker alcohol intake: current Smoking Status: Current every day smoker alcohol intake frequency: holidays/special occasions only Substance Use Type: does not use Exam Narrative Exam Narrative: GEN: well nourished, well appearing male, alert and oriented x 3, patient appears to be in mild distress. HEENT: Atraumatic, pupils are equal round reactive to light, extraocular movements are intact, nares are clear, TMs are clear with no fluid, there is no conjunctival pallor. Throat is clear without any exudates, erythema, tonsillar enlargement or uvular deviation, patient does have some swelling above tooth 6., there is also a little bit of black discoloration approximately 0.25 cm in size in the soft tissue just adjacent. There is no fluctuance. Externally patient has some erythema over the right cheek close to the nasolabial fold with swelling over the cheek tracking up towards his face. No palpable abscess or fluid collection. Patient does not have any oropharyngeal swelling or other changes. HEART: Regular rate and rhythm without murmur, clicks, rubs. No carotid bruits, pulses are equal in upper and lower extremities LUNGS:Lungs clear to auscultation, no wheezes, rales, crackles, chest moves symmetrically ABD:bowel sounds normal, soft, non-tender, no guarding, rebound, rigidity, no masses noted, no hepatosplenomegaly MSCL: Non-tender, no muscle atrophy, muscles strength 5/5 upper and lower extremities, full range of motion, normal gait NEURO:CN 2-12 intact, sensation normal, mild tremor. Initial Vital Signs Initial Vital Signs: Vital Signs Temperature 98.6 F 08/29/23 10:05 Pulse Rate 79 08/29/23 10:05 Respiratory Rate 18 08/29/23 10:05 Blood Pressure 181/94 H 08/29/23 10:05 Pulse Oximetry 97 08/29/23 10:05 Oxygen Delivery Method Room Air 08/29/23 10:05 Course Orders Ordered: Clindamycin HCl (Clindamycin 150 Mg Capsule) 300 mg PO Q6H Stop: 08/29/23 23:59 Discontinued Medications Clindamycin HCl (Clindamycin 150 Mg Capsule) 300 mg PO NOW ONE Stop: 08/29/23 10:16 Last Admin: 08/29/23 10:23 Dose: 300 mg Documented By: NILS Clindamycin HCl (Clindamycin 150 Mg Capsule) 300 mg PO NOW ONE Stop: 08/29/23 10:18 Clindamycin HCl (Clindamycin 150 Mg Capsule) 300 mg PO BEDTIME Stop: 08/29/23 23:59 Vital Signs Vital signs: Vital Signs - 8 hr 08/29/23 10:05 08/29/23 10:50 Temperature 98.6 F Pulse Rate 79 78 Respiratory Rate 18 18 Blood Pressure 181/94 H 152/78 H Pulse Oximetry 97 98 Oxygen Delivery Method Room Air Room Air MDM - Dental/Oral MDM Narrative Medical decision making narrative: 78-year-old male with dental pain yesterday took 3 doses of amoxicillin pain got better but swelling increased. He had a left over prescription at home. Discussed with patient he does appear to have a dental infection that is likely causing some cellulitis would switch him to clindamycin. There is a small area of black discoloration in the soft tissue just adjacent to the tooth. He does not follow regularly with a dentist and recommended for the patient to follow up either see dentist to have his primary care re-evaluate to make sure that this lesion has resolved after his infection has improved. We discussed if it has not he needs to have further workup/evaluation. Discussed return precautions. Patient was given additional doses here to take home because of the holidays all the pharmacies are closed. Discharge Plan Departure Patient Disposition: Home Clinical Impression: Dental infection, Cellulitis of face Instructions: Cellulitis Activity Restrictions/Additional Instructions: You appear to have a dental infection that is causing cellulitis or infection in the skin on your right cheek. There is a small black spot next to the tooth adjacent to tooth 6, please follow-up with your physician or a dentist to make sure that this goes away after the infection has resolved. If it is still there it needs to be further evaluated by a dentist or an ear nose throat physician. Take antibiotics until completed. Prescription sent to [facility] in [place]. Please return for fevers increasing swelling, redness, recurrent dental pain, swelling or tongue, airway, nausea or vomiting or other new or concerning changes. Prescriptions: New clindamycin HCl 300 mg capsule 300 mg PO QID Qty: 40 0RF No Action lisinopril 5 mg tablet 5 mg PO DAILY hydralazine 25 mg tablet 25 mg PO BID amlodipine 5 mg tablet 5 mg PO DAILY tamsulosin 0.4 mg Capsule,Extended Release 24hr 0.4 mg PO QAM albuterol sulfate [ProAir HFA] 90 mcg/actuation Hfa Aerosol Inhaler 1 puff INHALATION Q4-6H PRN (Reason: Shortness Of Breath) acetaminophen 325 mg Tablet 650 mg PO Q6HR PRN (Reason: Pain, Mild (1-3)) Qty: 120 1RF hydrocodone-acetaminophen 5-325 mg tablet 1 tab PO BID PRN (Reason: pain) Qty: 7 0RF atorvastatin 80 mg tablet 80 mg PO BEDTIME Qty: 90 0RF aspirin 325 mg Tablet 325 mg PO DAILY Qty: 90 0RF Referrals: Li Jimenez PA-C [Primary Care Provider] - Stand Alone Forms: Patient Portal/API
[2023-08-29 10:05] VITALS: BP 181/94; PULSE 79; RESP 18; TEMP 37; O2SAT 97; BMI 21.6
--- NOTE | 2023-08-29 10:11 | PC.NURSE ---
Dr. byrne completed oral exam
[2023-08-29] MEDS: CLINDAMYCIN 150 MG CAPSULE 300 MG PO (10:23)
[2023-08-29 10:50] VITALS: BP 152/78; PULSE 78; RESP 18; O2SAT 98
== END 2023-08-29 10:54 | disposition home or self-care (01) ==
PROVIDERS: Emergency Provider Emergency Medicine; PCP Student in an Organized Health Care Education/Training Program
DX: K04.7 Periapical abscess without sinus (principal); L03.211 Cellulitis of face; F17.200 Nicotine dependence, unspecified, uncomplicated
CPT/HCPCS: 99283

== ENCOUNTER 2023-10-23 11:39 | Emergency (ER) | payer MEDICARE, SELFPAY ==
[2022-08-21 17:59] VITALS: BMI 22.2
[2023-10-23 11:40] VITALS: BP 142/85; PULSE 77; RESP 14; TEMP 36.4; O2SAT 99
--- NOTE | 2023-10-23 11:55 | DI.RAD.S_ITS ---
PROCEDURE: XR FINGER LT MIN 2V INDICATIONS: injury, ? dislocation 4th digit TECHNIQUE: AP hand, 2 views of the 4th finger(s) acquired. COMPARISON: None. FINDINGS: Bones: Posterior dislocation of the middle phalanx of the 4th digit relative to the proximal phalanx. No suspicious bony lesions. Soft tissues: No suspicious soft tissue calcifications. IMPRESSION: 4th digit dislocation. Dictated by: Stefany Reeves M.D. on 10/23/2023 at 12:15 Approved by: Stefany Reeves M.D. on 10/23/2023 at 12:16
--- NOTE | 2023-10-23 12:11 | ED.UPPEXIN ---
HPI - Extremity Injury (Upper) General Chief Complaint: Extremity Injury, Upper Stated Complaint: Fall Time Seen by Provider: 10/23/23 11:45 Source: patient and EMS Mode of arrival: EMS History of Present Illness HPI narrative: 78-year-old male presents by EMS from home for left 4th finger injury. Patient states that he frequently will get weak and fall. He states that when this happens he is able to get up and continue about his day as usual. He had 1 of his usual episodes today while in the shower and fell, injuring his left finger. Denies hitting head, denies loss of consciousness. Obvious dislocation to left ring finger. Related Data Home Medications Medication Instructions Recorded Confirmed tamsulosin 0.4 mg capsule 0.4 mg PO QAM 05/01/18 09/12/22 albuterol sulfate 90 mcg/actuation 1 puff inhalation Q4-6H PRN 12/18/18 09/12/22 aerosol inhaler (ProAir HFA) Shortness Of Breath amlodipine 5 mg tablet 5 mg PO DAILY 07/04/22 09/12/22 hydralazine 25 mg tablet 25 mg PO BID 07/04/22 09/12/22 lisinopril 5 mg tablet 5 mg PO DAILY 07/04/22 09/12/22 Previous Rx's Medication Instructions Recorded acetaminophen 325 mg tablet 650 mg (2 x 325 mg) PO Q6HR PRN 07/26/22 Pain, Mild (1-3) #120 tabs hydrocodone 5 mg-acetaminophen 325 1 tab PO BID PRN pain #7 tabs 08/21/22 mg tablet aspirin 325 mg tablet 325 mg PO DAILY #90 tabs 08/22/22 atorvastatin 80 mg tablet 80 mg PO BEDTIME #90 tabs 08/22/22 Allergies Allergy/AdvReac Type Severity Reaction Status Date / Time No Known Drug Allergies Allergy Verified 10/23/23 11:53 Review of Systems Review of Systems Narrative: Negative except as noted above Patient History Medical History Diverticulosis Bladder cancer Hernia Spinal stenosis Personal history of colonic polyps Right foot drop Fragile skin Easy bruisability Psoriasis Cancer Enlarged prostate Numbness and tingling Vitamin D deficiency Peripheral vascular disease Chronic kidney disease Gout Lumbar spinal stenosis Carotid artery stenosis COPD (chronic obstructive pulmonary disease) HTN (hypertension) Hypothyroid Hypercholesterolemia Surgical History Hx of hand surgery History of lumbar spinal fusion (07/25/22) History of lumbar surgery (08/11/18) History of colonoscopy Hx of tonsillectomy History of lumbar surgery Hx of appendectomy History of femoropopliteal bypass History of left-sided carotid endarterectomy History of bladder surgery Social History household members: spouse Smoking Status: Current every day smoker alcohol intake: current Smoking Status: Current every day smoker alcohol intake frequency: holidays/special occasions only Substance Use Type: does not use Exam Initial Vital Signs Initial Vital Signs: Vital Signs Temperature 97.6 F 10/23/23 11:40 Pulse Rate 77 10/23/23 11:40 Respiratory Rate 14 10/23/23 11:40 Blood Pressure 142/85 H 10/23/23 11:40 Pulse Oximetry 99 10/23/23 11:40 Oxygen Delivery Method Room Air 10/23/23 11:40 Const: Awake, alert, no acute distress, nontoxic appearing Cardiac: regular rate, regular rhythm RESP: unlabored, clear bilaterally, no wheezing GI: Atraumatic, soft, nontender, nondistended, no rebound, no guarding MSK: Obvious deformity left ring finger at PIP joint, ring is loose, cap refill <2 seconds Skin: Warm, Dry, intact, no rashes Neuro: AO x3, CN II-XII grossly intact, moves all extremities Procedures Orthopedic Joint Reduction Joint #1: Side: left Joint Reduction Location: finger Analgesia: other (ice) Technique used: traction/counter-traction Post-reduction neuro exam: intact Post-reduction vascular: intact Post Reduction X-Ray Obtained: No Splint Applied: Yes Patient Tolerated Procedure: Well and No complications Course Orders Ordered: ED Orders 10/23/23 11:55 XR finger LT min 2V Stat Vital Signs Vital signs: Vital Signs - 8 hr 10/23/23 11:40 Temperature 97.6 F Pulse Rate 77 Respiratory Rate 14 Blood Pressure 142/85 H Pulse Oximetry 99 Oxygen Delivery Method Room Air MDM - Extremity Injury (Upper) MDM Narrative Medical decision making narrative: Finger dislocation after ground level fall. Finger was placed on ice and when the finger was numb it was directly manipulated and pulled on, with successful reduction of the joint and complete resolution of symptoms. Patient is wearing a ring, however it is loose. He states that he has worn this ring for decades and would prefer to keep his ring if possible. After reduction of joint there is no additional swelling, ring is able to be moved without difficulty. Patient placed in santos tape to stabilize joint and he was counseled on how to santos tape. Counseled on importance of monitoring for any further swelling of his ring finger. ED return precautions discussed at bedside. Patient expressed understanding of the plan and is in agreement at this time. All questions answered at the time of discharge. Discharge Plan Departure Patient Disposition: Home Clinical Impression: Dislocation closed, finger Qualifiers: Encounter type: initial encounter Qualified Code(s): S63.259A - Unspecified dislocation of unspecified finger, initial encounter Instructions: DI for Finger Dislocation, How to Santos Tape Activity Restrictions/Additional Instructions: Follow up with your primary care physician. If you notice swelling around your ring it needs to come off, but right now Prescriptions: No Action lisinopril 5 mg tablet 5 mg PO DAILY hydralazine 25 mg tablet 25 mg PO BID amlodipine 5 mg tablet 5 mg PO DAILY tamsulosin 0.4 mg Capsule,Extended Release 24hr 0.4 mg PO QAM albuterol sulfate [ProAir HFA] 90 mcg/actuation Hfa Aerosol Inhaler 1 puff INHALATION Q4-6H PRN (Reason: Shortness Of Breath) acetaminophen 325 mg Tablet 650 mg PO Q6HR PRN (Reason: Pain, Mild (1-3)) Qty: 120 1RF hydrocodone-acetaminophen 5-325 mg tablet 1 tab PO BID PRN (Reason: pain) Qty: 7 0RF atorvastatin 80 mg tablet 80 mg PO BEDTIME Qty: 90 0RF aspirin 325 mg Tablet 325 mg PO DAILY Qty: 90 0RF Referrals: Li Jimenez PA-C [Primary Care Provider] - Stand Alone Forms: Patient Portal/API
[2023-10-23 13:31] VITALS: BP 142/82; PULSE 65; O2SAT 94
== END 2023-10-23 13:34 | disposition home or self-care (01) ==
PROVIDERS: Emergency Provider Emergency Medicine; PCP Student in an Organized Health Care Education/Training Program
DX: S63.255A Unspecified dislocation of left ring finger, initial encounter (principal); W18.2XXA Fall in (into) shower or empty bathtub, initial encounter
CPT/HCPCS: 26700; 29130; 73140; 99281; 99284